=== PATIENT | female | born 1970 | race Caucasian/White ===

== ENCOUNTER → 2017-08-18 | Outpatient (CLI) | payer BC ==
--- NOTE | 2017-08-19 10:41 | MM ---
Reason for exam: screening (asymptomatic). Last mammogram was performed 2 years and 1 month ago. History: Patient is postmenopausal and has history of other cancer at age 44. Family history of breast cancer in maternal aunt at age 50. Physical Findings: A clinical breast exam by your physician is recommended on an annual basis and results should be correlated with mammographic findings. MG 3D Screening Mammo W/Cad Bilateral CC and MLO view(s) were taken. Prior study comparison: July 25, 2015, bilateral MG screening mammo w CAD. December 06, 2013, bilateral digital screening mammo w/CAD. The breast tissue is heterogeneously dense. This may lower the sensitivity of mammography. Focal asymmetry upper outer left breast 7.3cm from nipple. This finding is changed when compared with previous exams. ASSESSMENT: Incomplete: need additional imaging evaluation, BI-RAD 0 RECOMMENDATION: Special view mammogram of the left breast. If lesion persists on supplemental views, image directed ultrasound is recommended. [facility] will attempt to contact patient to return for supplemental views and ultrasound if indicated.
== END | disposition home or self-care (01) ==
LOC: RADMAMWWP 16:39
PROVIDERS: ATTEND Obstetrics & Gynecology
DX: Z12.31 Encounter for screening mammogram for malignant neoplasm of breast (principal)
CPT/HCPCS: 77063; G0202

== ENCOUNTER → 2017-09-11 | Outpatient (CLI) | payer BC ==
[2017-09-11 10:05] VITALS: RESP 16; TEMP 97.7; BMI 43.9
[2017-09-11 10:58] VITALS: BP 166/101; PULSE 80
[2017-09-11 17:37] LABS: HCT 43.2 % (34.0-46.0); MCH 30.2 pg (25.0-35.0); MCHC 32.4 g/dL (31.0-37.0); MCV 93.3 fL (80.0-100.0); Platelet Count 251 k/uL (150-450); RBC 4.63 m/uL (3.80-5.40); WBC 8.2 k/uL (3.8-10.6)
[2017-09-11 17:51] LABS: ALT 54 U/L (9-52); AST 26 U/L (14-36); Albumin 4.1 g/dL (3.5-5.0); Alkaline Phosphatase 61 U/L (38-126); Anion Gap 10 mmol/L; Blood Urea Nitrogen 15 mg/dL (7-17); Calcium 9.9 mg/dL (8.4-10.2); Carbon Dioxide 29 mmol/L (22-30); Chloride 102 mmol/L (98-107); Cholesterol 277 mg/dL (<200); Glucose 99 mg/dL (74-99); HDL Cholesterol 64 mg/dL (40-60); LDL Cholesterol,Calculated 189 mg/dL (0-99); Potassium 4.1 mmol/L (3.5-5.1); Sodium 141 mmol/L (137-145); Total Bilirubin 0.9 mg/dL (0.2-1.3); Total Protein 6.7 g/dL (6.3-8.2); Triglycerides 121 mg/dL (<150)
[2017-09-12 01:05] LABS: Iron Saturation 19.21 (12.00-45.00)
[2017-09-12 01:47] LABS: Folate, Serum 11.9 ng/mL; Vitamin D 25 Hydroxy 9.6 ng/mL (30.0-100.0)
[2017-09-12 04:05] LABS: Hemoglobin A1C 5.2 % (4.0-6.0)
--- NOTE | 2017-10-22 06:43 | P.HPBAR ---
Bariatric H&P - History & Physicial H&P Date: 09/11/17 History & Physicial: Visit/CC: bariatric consult (sleeve) Patient initial contact: Initial weight: 110.903 kg Initial weight in pounds: 244.50 Height: 5 ft 2.5 in Initial BMI: 43.9 Last weight: Current weight: 110.903 kg Current weight in pounds: 244.50 Current BMI: 43.9 [place] body weight (based on NIH guidelines): 51.029 kg Excess body weight loss: 0.0% The patient is a 47 year-old F who presents for Bariatric Assessment. DATE OF SERVICE: 09/11/2017 REASON FOR CONSULTATION: Initial bariatric evaluation. HISTORY OF PRESENT ILLNESS: Ximena Lopes is a 47-year-old female who comes in with lifelong problems with obesity. She has been undergoing medical supervised weight loss for 2 months. She is using ONEPLE pal. She has tried diet pills without any success of weight loss. She has been walking daily. In fact, she has lost 35 pounds. No family history of inflammatory bowel disease. No personal history of stomach or esophageal cancer. She has esophageal reflux disease. No family history of lupus or multiple sclerosis. No personal or family history of pulmonary embolus or DVTs. She denies any food ALLERGIES. Her gallbladder is removed. She has recently been started on medications for her high blood pressure. She has history of snoring. Otherwise she has history of lower back pain as well as foot pain. She's evaluating for the sleeve gastrectomy. At her height of 5 foot 2.5 inches, her ideal body weight 135 pounds. She comes in weighing 244 pounds. She is 109 pounds overweight. PAST MEDICAL HISTORY: 1. Morbid obesity. 2. Body mass index of 44.0. 3. Osteoarthritis of the lower back. 4. Obstructive sleep apnea. 5. Hypertensive heart disease. PAST SURGICAL HISTORY: 1. Arthroscopy. HOME MEDICATIONS: 1. Norvasc. 2. Losartan. 3. Vitamin D. ALLERGIES: 1. Sulfa. 2. Penicillins. SOCIAL HISTORY: No active tobacco use. FAMILY HISTORY: No family history of ulcerative colitis disease or Crohn's disease. Family history of morbid obesity. No lupus in the family. No reports of stomach or esophageal cancer. REVIEW OF ORGAN SYSTEMS: CONSTITUTIONAL: At her height of 5 foot 2.5 inches, her ideal body weight 135 pounds. She comes in weighing 244 pounds. She is 109 pounds overweight. HEENT: Denies any active troubles with vision or hearing. No troubles with swallowing. ENDOCRINE: No diabetes. No hypothyroidism. CARDIOVASCULAR: No reports of palpitations or heart attacks or chest pain. RESPIRATORY: Has daytime somnolence. No asthma. GI: Denies any bright red blood per rectum. No diarrhea or constipation. MUSCULOSKELETAL: Has lower back pain and joint pain. Has pain along the feet. NEURO: No headaches. No seizure disorders. PSYCH: No depression or suicidal ideation. RHEUMATOLOGIC: No lupus. No rheumatoid arthritis. HEMATOLOGIC: Denies any abnormal bleeding or bruising. No personal history of DVTs. SKIN: No rash. No skin cancer. PHYSICAL EXAM: VITAL SIGNS: Height 5 foot 2.5 inches, weight 244 pounds. BMI 44.0 Vital Signs Temp 97.7 F 09/11/17 10:15 Pulse 80 09/11/17 10:15 Resp 16 09/11/17 10:15 BP 166/101 09/11/17 10:15 Pulse Ox GENERAL: Well-developed in no acute distress. HEENT: No scleral icterus. Extraocular movements grossly intact. Hears conversational speech. No nasal drainage. NECK: Supple without lymphadenopathy. CHEST: Nonlabored respirations with equal bilateral excursions. CARDIOVASCULAR: Regular rate and regular rhythm. Distal 2+ pulses. ABDOMEN: Obese, soft, nontender, nondistended. MUSCULOSKELETAL: No clubbing, cyanosis. Gross strength 5/5 distal lower extremities. 1+ pre-tibial pitting edema. NEURO: No focal or lateralizing signs. Cranial nerves 2 through 12 grossly within normal limits. PSYCH: Appropriate affect. Alert and oriented to person, place and time. SKIN: Good skin turgor. Well perfused. ASSESSMENT: 1. Morbid obesity. 2. Body mass index of 44.0. 3. Osteoarthritis of the lower back. 4. Obstructive sleep apnea. 5. Hypertensive heart disease. 6. Dietary surveillance and counseling. PLAN: 1. Surgical options including a band, gastric bypass, sleeve gastrectomy were described in detail. Alternatives such as gastric balloon including duodenal switch were described. 2. The [place] [facility]ariat[facility] surgical collaborative data and outcomes calculator were described with surgical options. 3. Recommend a bariatric metabolic panel to evaluate for micro- including macronutrient deficiencies. 4. For history of daytime somnolence, recommend evaluation and treatment for sleep apnea. 5. Dietary surveillance and counseling was reviewed, I have asked increased protein intake to at least 60 grams daily. 6. Will need cardiac risk assessment. 7. Recommend medical risk assessment. 8. Psych assessment per insurance guidelines. 9. Follow up upon completion of upper endoscopy. 10. Recommend 12-lead EKG for hypertensive heart disease. 11. Recommend upper endoscopy. Thank you for this consultation. Laboratory Last Values WBC 8.2 k/uL (3.8-10.6) 09/11/17 17:06 RBC 4.63 m/uL (3.80-5.40) 09/11/17 17:06 Hgb 14.0 gm/dL (11.4-16.0) 09/11/17 17:06 Hct 43.2 % (34.0-46.0) 09/11/17 17:06 MCV 93.3 fL (80.0-100.0) 09/11/17 17:06 MCH 30.2 pg (25.0-35.0) 09/11/17 17:06 MCHC 32.4 g/dL (31.0-37.0) 09/11/17 17:06 RDW 14.0 % (11.5-15.5) 09/11/17 17:06 Plt Count 251 k/uL (150-450) 09/11/17 17:06 Sodium 141 mmol/L (137-145) 09/11/17 17:06 Potassium 4.1 mmol/L (3.5-5.1) 09/11/17 17:06 Chloride 102 mmol/L (98-107) 09/11/17 17:06 Carbon Dioxide 29 mmol/L (22-30) 09/11/17 17:06 Anion Gap 10 mmol/L 09/11/17 17:06 BUN 15 mg/dL (7-17) 09/11/17 17:06 Creatinine 0.70 mg/dL (0.52-1.04) 09/11/17 17:06 Est GFR (MDRD) Af Amer >60 (>60 ml/min/1.73 sqM) 09/11/17 17:06 Est GFR (MDRD) Non-Af >60 (>60 ml/min/1.73 sqM) 09/11/17 17:06 Glucose 99 mg/dL (74-99) 09/11/17 17:[address] Glu mg/dL 103 09/11/17 17:06 Hemoglobin A1c 5.2 % (4.0-6.0) 09/11/17 17:06 Calcium 9.9 mg/dL (8.4-10.2) 09/11/17 17:06 Iron 63 ug/dL (50-170) 09/11/17 17:06 TIBC 328 ug/dL (228-460) 09/11/17 17:06 Iron Saturation 19.21 (12.00-45.00) 09/11/17 17:06 Ferritin 81.3 ng/mL (10.0-291.0) 09/11/17 17:06 Total Bilirubin 0.9 mg/dL (0.2-1.3) 09/11/17 17:06 AST 26 U/L (14-36) 09/11/17 17:06 ALT 54 U/L (9-52) H 09/11/17 17:06 Alkaline Phosphatase 61 U/L (38-126) 09/11/17 17:06 Total Protein 6.7 g/dL (6.3-8.2) 09/11/17 17:06 Albumin 4.1 g/dL (3.5-5.0) 09/11/17 17:06 Triglycerides 121 mg/dL (<150) 09/11/17 17:06 Cholesterol 277 mg/dL (<200) H 09/11/17 17:06 LDL Cholesterol, Calc 189 mg/dL (0-99) H 09/11/17 17:06 HDL Cholesterol 64 mg/dL (40-60) H 09/11/17 17:06 Vitamin B1 47 ug/L (38-122) 09/11/17 17:06 Vitamin B12 220.0 pg/mL (200.0-944.0) 09/11/17 17:06 Vitamin D 25-Hydroxy 9.6 ng/mL (30.0-100.0) L 09/11/17 17:06 Folate 11.9 ng/mL 09/11/17 17:06 TSH 2.480 mIU/L (0.465-4.680) 09/11/17 17:06 EKG EKG PERFORMED 09/11/17 17:06 ALT elevated. Cholesterol elevated. LDL elevated. Vitamin D deficient. May need ultrasound of the liver elevated liver enzymes including hepatic serology. May also need anticholesterol medications. Recommend vitamin D supplement. EKG reviewed. Past Medical History Past Medical History: GERD/Reflux, Hypertension, Osteoarthritis (OA) Additional Past Medical History / Comment(s): DRY EYES, CLOGGED LEFT TEAR DUCT. History of Any Multi-Drug Resistant Organisms: None Reported Past Surgical History: Section, Tonsillectomy, Uterine Ablation Additional Past Surgical History / Comment(s): SINUS SURGERY, COLONOSCOPY, Surgery on Left eye to remove stye. Past Anesthesia/Blood Transfusion Reactions: No Reported Reaction Additional Past Anesthesia/Blood Transfusion Reaction / Comm: Difficulty waking up following cesearean Smoking Status: Never smoker - Past Family History Mother Family Medical History: Cancer, Coronary Artery Disease (CAD) Additional Family Medical History / Comment(s): at age 54 from lung cancer Father Family Medical History: Coronary Artery Disease (CAD), Memory Impairment Additional Family Medical History / Comment(s): at age 68 from Alzheimers Sister(s) Family Medical History: Cancer Additional Family Medical History / Comment(s): colon cancer (dx 2x) first dx at age 36 Brother(s) Family Medical History: Cancer Additional Family Medical History / Comment(s): at age 60 from colon cancer Surgical - Exam Vital Signs Temp Resp BP 97.7 F 16 166/111 09/11/17 09:35 09/11/17 09:35 09/11/17 09:35 Results - Labs 09/11/17 17:06 09/11/17 17:06 Bariatric Checklist Checklist: Plan: Checklist: EGD: 1. Hiatal hernia: 2. H. Pylori: HgbA1c: Vitamin D: Smoking: Never smoker Primary care physician referral: Jd Lutz Psychiatry clearance: Cardiology clearance: Sleep study: Diet journal: VTE risk score: VTE risk level: Rehab needs at discharge:
== END | disposition home or self-care (01) ==
LOC: BARWHC3 09:28
PROVIDERS: ATTEND Surgery Plastic and Reconstructive Surgery
DX: E66.01 Morbid (severe) obesity due to excess calories (principal); M47.9 Spondylosis, unspecified; G47.33 Obstructive sleep apnea (adult) (pediatric); I11.9 Hypertensive heart disease without heart failure; K21.9 Gastro-esophageal reflux disease without esophagitis; M19.90 Unspecified osteoarthritis, unspecified site; E88.81 Metabolic syndrome and other insulin resistance; E55.9 Vitamin D deficiency, unspecified; E44.0 Moderate protein-calorie malnutrition; Z71.3 Dietary counseling and surveillance; Z79.899 Other long term (current) drug therapy; Z68.41 Body mass index [BMI] 40.0-44.9, adult; Z88.0 Allergy status to penicillin; Z88.2 Allergy status to sulfonamides; Z98.890 Other specified postprocedural states
CPT/HCPCS: 36415; 80053; 80061; 82306; 82607; 82728; 82746; 83036; 83540; 83550; 84425; 84443; 85027; 93005; 99211

== ENCOUNTER → 2017-11-05 | Outpatient (CLI) | payer BC ==
[2017-11-05 16:35] VITALS: BP 140/82; PULSE 71; RESP 16; TEMP 98.3; BMI 41.4
--- NOTE | 2018-01-12 18:34 | P.PN ---
Subjective Progress Note Date: 11/05/17 DATE OF SERVICE: 11/05/2017 [place]ON[place] COMPLAINT: Bariatric evaluation HISTORY OF PRESENT ILLNESS: Ximena Lopes is a 47-year-old female who comes in with lifelong problems with obesity. [facility] August 2017. She completed an upper endoscopy. She's pending completion of psych assessment. She is undergoing medical supervised weight loss. As result of her obesity, she developed hypertension including sleep apnea. She's evaluating for the sleeve gastrectomy. At her height of 5 foot 2.5 inches, her ideal body weight 135 pounds. Her initial weight was 244 pounds. Today she comes in weighing 230 pounds. She has lost 14 pounds in 2 months. Her body mass index reduced from 44.0 to 41.4. She is 95 pounds overweight. PAST MEDICAL HISTORY: 1. Morbid obesity. 2. Body mass index of 44.0. 3. Osteoarthritis of the lower back. 4. Obstructive sleep apnea. 5. Hypertensive heart disease. PAST SURGICAL HISTORY: 1. Arthroscopy. HOME MEDICATIONS: 1. Norvasc. 2. Losartan. 3. Vitamin D. ALLERGIES: 1. Sulfa. 2. Penicillins. SOCIAL HISTORY: No active tobacco use. FAMILY HISTORY: No family history of ulcerative colitis disease or Crohn's disease. Family history of morbid obesity. No lupus in the family. No reports of stomach or esophageal cancer. REVIEW OF ORGAN SYSTEMS: CONSTITUTIONAL: At her height of 5 foot 2.5 inches, her ideal body weight 135 pounds. Her initial weight was 244 pounds. Today she comes in weighing 230 pounds. She has lost 14 pounds in 2 months. Her body mass index reduced from 44.0 to 41.4. She is 95 pounds overweight. HEENT: Denies any active troubles with vision or hearing. No troubles with swallowing. ENDOCRINE: No diabetes. No hypothyroidism. CARDIOVASCULAR: No reports of palpitations or heart attacks or chest pain. RESPIRATORY: Has daytime somnolence. No asthma. GI: Denies any bright red blood per rectum. No diarrhea or constipation. MUSCULOSKELETAL: Has lower back pain and joint pain. Has pain along the feet. NEURO: No headaches. No seizure disorders. PSYCH: No depression or suicidal ideation. RHEUMATOLOGIC: No lupus. No rheumatoid arthritis. HEMATOLOGIC: Denies any abnormal bleeding or bruising. No personal history of DVTs. SKIN: No rash. No skin cancer. PHYSICAL EXAM: VITAL SIGNS: Height 5 foot 2.5 inches, weight 230 pounds. BMI 41.4 Vital Signs Temp 98.3 F 11/05/17 18:00 Pulse 71 11/05/17 18:00 Resp 16 11/05/17 18:00 BP 140/82 11/05/17 18:00 Pulse Ox GENERAL: Well-developed in no acute distress. HEENT: No scleral icterus. Extraocular movements grossly intact. Hears conversational speech. No nasal drainage. NECK: Supple without lymphadenopathy. CHEST: Nonlabored respirations with equal bilateral excursions. CARDIOVASCULAR: Regular rate and regular rhythm. Distal 2+ pulses. ABDOMEN: Obese, soft, nontender, nondistended. MUSCULOSKELETAL: No clubbing, cyanosis. Gross strength 5/5 distal lower extremities. No pre-tibial pitting edema. NEURO: No focal or lateralizing signs. Cranial nerves 2 through 12 grossly within normal limits. PSYCH: Appropriate affect. Alert and oriented to person, place and time. SKIN: Good skin turgor. Well perfused. LABS: Previous labs reviewed ALT elevated. Cholesterol elevated. LDL elevated. Vitamin D deficient. EKG reviewed and abnormal. EGD FINDINGS: Squamocolumnar junction 37 cm from the incisors. Diaphragmatic hiatus at 37 cm. Hill grade 1 lower esophageal valve. No LA grade A erosive esophagitis. No active duodenitis. Chronic gastritis. PATHOLOGY: Final Pathologic Diagnosis STOMACH, BIOPSY: MARKED CHRONIC GASTRITIS WITH FOCAL ACTIVITY. ASSESSMENT: 1. Morbid obesity. 2. Body mass index of 44.0. 3. Osteoarthritis of the lower back. 4. Obstructive sleep apnea. 5. Hypertensive heart disease. 6. Dietary surveillance and counseling. 7. Abnormal EKG 8. Hyperlipidemia 9. Vitamin D deficiency 10. Elevated ALT 11. Dietary surveillance and counseling PLAN: 1. Recommend ultrasound of the liver for elevated liver enzymes including hepatic serology. 2. Recommend increase vitamin D supplement. 3. Her EKG is abnormal for ventricular hypertrophy. Recommend referral to cardiology for evaluation 4. Recommend dietary surveillance and counseling. Objective - Vital Signs Vital signs: Vital Signs Temp 98.3 F 11/05/17 16:28 Pulse 71 11/05/17 16:28 Resp 11/05/17 16:28 BP 140/82 11/05/17 16:28 Pulse Ox Intake & Output 11/04/17 11/05/17 11/05/17 18:59 06:59 18:59 Weight 104.383 kg
== END | disposition home or self-care (01) ==
LOC: BARWHC3 15:28
PROVIDERS: ATTEND Surgery Plastic and Reconstructive Surgery
DX: E66.01 Morbid (severe) obesity due to excess calories (principal); M19.90 Unspecified osteoarthritis, unspecified site; G47.33 Obstructive sleep apnea (adult) (pediatric); I11.9 Hypertensive heart disease without heart failure; I50.9 Heart failure, unspecified; R94.31 Abnormal electrocardiogram [ECG] [EKG]; E78.5 Hyperlipidemia, unspecified; E55.9 Vitamin D deficiency, unspecified; R74.8 Abnormal levels of other serum enzymes; Z71.3 Dietary counseling and surveillance; Z68.41 Body mass index [BMI] 40.0-44.9, adult; Z88.0 Allergy status to penicillin; Z88.2 Allergy status to sulfonamides; Z79.899 Other long term (current) drug therapy
CPT/HCPCS: 99211

== ENCOUNTER → 2018-01-27 | Outpatient (CLI) | payer BC ==
--- NOTE | 2018-01-27 18:00 | CONS ---
CONSULTATION REASON FOR CONSULTATION: Sleep apnea. This is a 47-year-old obese female patient who is being contemplated for bariatric surgery. The patient is interested in gastric sleeve. Preoperatively she was referred to me for sleep apnea evaluation. She has frequent arousals and occasionally she snores. She goes to bed around 10 p.m. and wakes up at 6 a.m. in the morning. She is refreshed and she does not fall asleep. She does not feel tired during the day. She denies having to stop breathing at nighttime and she has been told that she does not stop breathing. No insomnia. No nocturia. She denies waking up gasping for air. No grinding of the teeth. No heartburn, chest pain or palpitations at nighttime. No sleep paralysis, hallucinations or cataplexy. Weight has been up; the patient has steadily gained weight over the years. She sleeps on her side. No other complaints otherwise. PAST MEDICAL HISTORY: Obesity and hypertension. PAST SURGICAL HISTORY: 1. Sinus surgery. 2. Cervical ablation. 3. Tonsillectomy. 4. x2. DRUG ALLERGIES: SULFA and PENICILLIN. OUTPATIENT MEDICATION: Losartan and Norvasc. SOCIAL HISTORY: Nonsmoker. No history of alcoholism. No history of IV drugs. FAMILY HISTORY: Brother with CVA. Brother, father and sister with coronary artery disease. Brother and sister with colon cancer. REVIEW OF SYSTEMS: Twelve-point review of systems was done. Positive findings are all mentioned above in history of present illness. Of significance is a negative history for psychiatric history such as anxiety or depression. No claustrophobia. No sexual dysfunction. She denies falling asleep during the day. She does not take any naps during the day. No problems with attention span or memory or concentration. PHYSICAL EXAMINATION: BP is 137/84, pulse 78, respiration 16, temperature 98.0, saturation 98% on room air. Weight is 234. Height is 5 feet 2 inches. BMI is 42.7. Neck size 15-1/4 inches. GENERAL APPEARANCE: Calm, comfortable. Head is atraumatic, normocephalic. NECK: Supple. Crowding of posterior pharynx. No goiter or neck masses. Mallampati class IV. LUNGS: Clear to auscultation. HEART: Heart sounds are regular rate and rhythm. Normal S1, S2. No murmurs. ABDOMEN: Obese, soft. Organs cannot be palpated. There is no direct tenderness, rebound tenderness or guarding. EXTREMITIES: No edema. No cyanosis or clubbing. Skin is negative for any wounds or ulcerations or cellulitis. Skeletal exam is negative for injury or deformities. IMPRESSION: 1. Snoring with frequent nocturnal arousals. Questionable obstructive sleep apnea. Overall suspicion is low, as the patient does not have any major hypersomnia or sleepiness. Nevertheless, she is obese with a BMI of 42.7 and she has been contemplating gastric sleeve. 2. Hypertension. 3. Obesity with a body mass index of 42.7. PLAN: 1. Screen this patient with a home sleep study. 2. Encourage weight loss. 3. Sleep hygiene measures are good in general. 4. Will continue to follow. MMODL / IJN: [id number] /
== END | disposition home or self-care (01) ==
LOC: SLEEP 15:51
PROVIDERS: ATTEND Internal Medicine Critical Care Medicine
DX: R06.83 Snoring (principal); E66.9 Obesity, unspecified; I10 Essential (primary) hypertension; Z98.890 Other specified postprocedural states; Z68.41 Body mass index [BMI] 40.0-44.9, adult; Z88.0 Allergy status to penicillin; Z88.2 Allergy status to sulfonamides; Z79.899 Other long term (current) drug therapy
CPT/HCPCS: 99211

== ENCOUNTER → 2018-02-23 | Outpatient (CLI) | payer BC ==
--- NOTE | 2018-02-24 07:42 | MM ---
Reason for exam: follow-up at short interval from prior study. Last mammogram was performed 6 months ago. History: Patient is postmenopausal and has history of other cancer at age 44. Family history of breast cancer in maternal aunt at age 50. Physical Findings: Nurse did not find any significant physical abnormalities on exam. MG 3D Diag Mammo W/Cad LT CC and MLO view(s) were taken of the left breast. Prior study comparison: August 22, 2017, left breast MG 3d work up w/cad LT. August 18, 2017, bilateral MG 3d screening mammo w/cad. The breast tissue is heterogeneously dense. This may lower the sensitivity of mammography. The left focal asymmetry upper outer quadrant middle depth appears mammographically stable. These results were verbally communicated with the patient and result sheet given to the patient on 02/23/18. ASSESSMENT: Probably benign, BI-RAD 3 RECOMMENDATION: Return to routine screening mammogram schedule for both breasts.
== END | disposition home or self-care (01) ==
LOC: RADMAMWWP 14:46
PROVIDERS: ATTEND Family Medicine
DX: R92.8 Other abnormal and inconclusive findings on diagnostic imaging of breast (principal)
CPT/HCPCS: 77061; 77065

== ENCOUNTER → 2018-04-20 | Outpatient (CLI) | payer BC ==
[2018-04-20 16:23] VITALS: BMI 43.2
== END | disposition home or self-care (01) ==
LOC: BARWHC3 08:47
PROVIDERS: ATTEND Surgery Plastic and Reconstructive Surgery
DX: E66.01 Morbid (severe) obesity due to excess calories (principal); Z68.41 Body mass index [BMI] 40.0-44.9, adult
CPT/HCPCS: 97804

== ENCOUNTER → 2018-05-27 | Outpatient (CLI) | payer BC ==
--- NOTE | 2018-05-27 17:09 | P.PN ---
Subjective Progress Note Date: 05/27/18 DATE OF SERVICE: 05/27/2018 [place] COMPLAINT: Bariatric evaluation HISTORY OF PRESENT ILLNESS: Ximena Lopes is a 47-year-old female who comes in with lifelong problems with obesity. She reports getting spacey after not drinking and eating all day. She has developed sleep apnea and hypertensive heart disease. At her height of 5 foot 2.5 inches, her ideal body weight 135 pounds. Her initial weight was 244 pounds. Today she comes in weighing 232 pounds from 230 pounds, 7 months ago. She has lost 7 pounds in 7 months. Her body mass index reduced from 44.0 to 41.9. She is 97 pounds overweight. PAST MEDICAL HISTORY: 1. Morbid obesity. 2. Body mass index of 44.0, initial 3. Osteoarthritis of the lower back. 4. Obstructive sleep apnea. 5. Hypertensive heart disease. PAST SURGICAL HISTORY: 1. Arthroscopy. HOME MEDICATIONS: 1. Norvasc. 2. Losartan. 3. Vitamin D. ALLERGIES: 1. Sulfa. 2. Penicillins. SOCIAL HISTORY: No active tobacco use. FAMILY HISTORY: No family history of ulcerative colitis disease or Crohn's disease. Family history of morbid obesity. No lupus in the family. No reports of stomach or esophageal cancer. REVIEW OF ORGAN SYSTEMS: CONSTITUTIONAL: At her height of 5 foot 2.5 inches, her ideal body weight 135 pounds. Her initial weight was 244 pounds. Today she comes in weighing 230 pounds. She has lost 14 pounds in 2 months. Her body mass index reduced from 44.0 to 41.4. She is 95 pounds overweight. HEENT: Denies any active troubles with vision or hearing. No troubles with swallowing. ENDOCRINE: No diabetes. No hypothyroidism. CARDIOVASCULAR: No reports of palpitations or heart attacks or chest pain. RESPIRATORY: Has daytime somnolence. No asthma. GI: Denies any bright red blood per rectum. No diarrhea or constipation. MUSCULOSKELETAL: Has lower back pain and joint pain. Has pain along the feet. NEURO: No headaches. No seizure disorders. PSYCH: No depression or suicidal ideation. RHEUMATOLOGIC: No lupus. No rheumatoid arthritis. HEMATOLOGIC: Denies any abnormal bleeding or bruising. No personal history of DVTs. SKIN: No rash. No skin cancer. PHYSICAL EXAM: VITAL SIGNS: Height 5 foot 2.5 inches, weight 232 pounds. BMI 41.9 Vital Signs Temp 98.2 F 05/27/18 15:31 Pulse 84 05/27/18 15:31 Resp 15 05/27/18 15:31 BP 145/70 05/27/18 15:31 Pulse Ox GENERAL: Well-developed in no acute distress. HEENT: No scleral icterus. Extraocular movements grossly intact. Hears conversational speech. No nasal drainage. NECK: Supple without lymphadenopathy. CHEST: Nonlabored respirations with equal bilateral excursions. CARDIOVASCULAR: Regular rate and regular rhythm. Distal 2+ pulses. ABDOMEN: Obese, soft, nontender, nondistended. MUSCULOSKELETAL: No clubbing, cyanosis. Gross strength 5/5 distal lower extremities. No pre-tibial pitting edema. NEURO: No focal or lateralizing signs. Cranial nerves 2 through 12 grossly within normal limits. PSYCH: Appropriate affect. Alert and oriented to person, place and time. SKIN: Good skin turgor. Well perfused. ASSESSMENT: 1. Morbid obesity. 2. Body mass index of 44.0, initial 3. Osteoarthritis of the lower back. 4. Obstructive sleep apnea. 5. Hypertensive heart disease. 6. Dietary surveillance and counseling. 7. Abnormal EKG 8. Hyperlipidemia 9. Vitamin D deficiency 10. Elevated ALT 11. Dietary surveillance and counseling PLAN: 1. She is doing well 2. Consent obtained 3. Bariatric options between a sleeve, band and a [id number] gastric bypass were reviewed in detail. She elected for a sleeve gastrectomy. Robotic assisted approach described. 4. The [place] [facility] Data was also reviewed with benefits and risks as described. 5. An 8 page second-generation bariatric consent form was reviewed in detail including potential of bleeding, infection, leaks, adequate weight loss, nutritional deficiencies which he demonstrated understanding of the risks. 6. A 2 week high-protein low caloric 800 kcal diet described to address hepatomegaly. 7. Preoperative labs including complete metabolic panel and CBC with type and screen recommended. 8. DVT prophylaxis per [place] [facility] collaborative. 9. Antibiotic prophylaxis. 10. Inpatient hospitalization anticipated for more than 2 nights. 11. All questions and concerns were addressed with the patient.
[2018-05-28 08:49] VITALS: BP 145/70; PULSE 84; RESP 15; TEMP 98.2; BMI 41.8
== END | disposition home or self-care (01) ==
LOC: BARWHC3 15:00
PROVIDERS: ATTEND Surgery Plastic and Reconstructive Surgery
DX: E66.01 Morbid (severe) obesity due to excess calories (principal); M47.816 Spondylosis without myelopathy or radiculopathy, lumbar region; G47.33 Obstructive sleep apnea (adult) (pediatric); I11.9 Hypertensive heart disease without heart failure; E78.5 Hyperlipidemia, unspecified; R94.31 Abnormal electrocardiogram [ECG] [EKG]; E55.9 Vitamin D deficiency, unspecified; R74.0 Nonspecific elevation of levels of transaminase and lactic acid dehydrogenase [LDH]; Z68.41 Body mass index [BMI] 40.0-44.9, adult; Z71.3 Dietary counseling and surveillance; Z88.2 Allergy status to sulfonamides; Z88.0 Allergy status to penicillin; Z79.899 Other long term (current) drug therapy
CPT/HCPCS: 99211

== ENCOUNTER → 2018-05-27 | Outpatient (CLI) | payer BC ==
[2018-05-27 17:57] LABS: Basophils % (A) 1 %; Eosinophils # (A) 0.1 k/uL (0-0.7); Eosinophils % (A) 2 %; HCT 43.4 % (34.0-46.0); Lymphocytes # (A) 1.9 k/uL (1.0-4.8); Lymphocytes % (A) 28 %; MCHC 32.3 g/dL (31.0-37.0); MCV 89.5 fL (80.0-100.0); Mean Platelet Volume 7.2; Monocytes # (A) 0.4 k/uL (0-1.0); Monocytes % (A) 6 %; Neutrophils # (A) 4.2 k/uL (1.3-7.7); Neutrophils % (A) 62 %; Platelet Count 275 k/uL (150-450); RBC 4.85 m/uL (3.80-5.40); RDW 12.8 % (11.5-15.5); WBC 6.8 k/uL (3.8-10.6)
[2018-05-27 18:23] LABS: ALT 45 U/L (9-52); AST 27 U/L (14-36); Albumin 4.5 g/dL (3.5-5.0); Alkaline Phosphatase 49 U/L (38-126); Anion Gap 12 mmol/L; Blood Urea Nitrogen 15 mg/dL (7-17); Calcium 9.8 mg/dL (8.4-10.2); Carbon Dioxide 25 mmol/L (22-30); Chloride 100 mmol/L (98-107); Glucose 81 mg/dL (74-99); Potassium 4.7 mmol/L (3.5-5.1); Sodium 137 mmol/L (137-145); Total Bilirubin 0.8 mg/dL (0.2-1.3); Total Protein 7.3 g/dL (6.3-8.2)
== END | disposition home or self-care (01) ==
LOC: LABPAT 17:24
PROVIDERS: ATTEND Surgery Plastic and Reconstructive Surgery
DX: Z01.818 Encounter for other preprocedural examination (principal); Z01.812 Encounter for preprocedural laboratory examination
CPT/HCPCS: 36415; 80053; 85025; 93005

== ENCOUNTER 2018-06-01 10:08 | Inpatient (IN) | payer BC ==
[2018-05-20 11:22] VITALS: BMI 44.6
--- NOTE | 2018-05-31 19:54 | P.GSHP ---
History of Present Illness H&P Date: 06/01/18 DATE OF SERVICE: 06/01/2018 CHE COMPLAINT: Morbid obesity HISTORY OF PRESENT ILLNESS: Ximena Lopes is a 47-year-old female who comes in with lifelong problems with obesity. As result of her obesity, she developed hypertension including sleep apnea. She's evaluating for the sleeve gastrectomy. At her height of 5 foot 2.5 inches, her ideal body weight 135 pounds. Her initial weight was 244 pounds. Today she comes in weighing 243 pounds. Her body mass index is 44.6. She is 109 pounds overweight. PAST MEDICAL HISTORY: 1. Morbid obesity. 2. Body mass index of 44.0. 3. Osteoarthritis of the lower back. 4. Obstructive sleep apnea. 5. Hypertensive heart disease. PAST SURGICAL HISTORY: 1. Arthroscopy. HOME MEDICATIONS: 1. Norvasc. 2. Losartan. 3. Vitamin D. ALLERGIES: 1. Sulfa. 2. Penicillins. SOCIAL HISTORY: No active tobacco use. FAMILY HISTORY: No family history of ulcerative colitis disease or Crohn's disease. Family history of morbid obesity. No lupus in the family. No reports of stomach or esophageal cancer. REVIEW OF ORGAN SYSTEMS: CONSTITUTIONAL: At her height of 5 foot 2.5 inches, her ideal body weight 135 pounds. Her initial weight was 244 pounds. Today she comes in weighing 230 pounds. She has lost 14 pounds in 2 months. Her body mass index reduced from 44.0 to 41.4. She is 95 pounds overweight. HEENT: Denies any active troubles with vision or hearing. No troubles with swallowing. ENDOCRINE: No diabetes. No hypothyroidism. CARDIOVASCULAR: No reports of palpitations or heart attacks or chest pain. RESPIRATORY: Has daytime somnolence. No asthma. GI: Denies any bright red blood per rectum. No diarrhea or constipation. MUSCULOSKELETAL: Has lower back pain and joint pain. Has pain along the feet. NEURO: No headaches. No seizure disorders. PSYCH: No depression or suicidal ideation. RHEUMATOLOGIC: No lupus. No rheumatoid arthritis. HEMATOLOGIC: Denies any abnormal bleeding or bruising. No personal history of DVTs. SKIN: No rash. No skin cancer. PHYSICAL EXAM: VITAL SIGNS: Height 5 foot 2.5 inches, weight 243 pounds. BMI 44.6 GENERAL: Well-developed in no acute distress. HEENT: No scleral icterus. Extraocular movements grossly intact. Hears conversational speech. No nasal drainage. NECK: Supple without lymphadenopathy. CHEST: Nonlabored respirations with equal bilateral excursions. CARDIOVASCULAR: Regular rate and regular rhythm. Distal 2+ pulses. ABDOMEN: Obese, soft, nontender, nondistended. MUSCULOSKELETAL: No clubbing, cyanosis. Gross strength 5/5 distal lower extremities. No pre-tibial pitting edema. NEURO: No focal or lateralizing signs. Cranial nerves 2 through 12 grossly within normal limits. PSYCH: Appropriate affect. Alert and oriented to person, place and time. SKIN: Good skin turgor. Well perfused. ASSESSMENT: 1. Morbid obesity. 2. Body mass index of 44.6. 3. Osteoarthritis of the lower back. 4. Obstructive sleep apnea. 5. Hypertensive heart disease. 6. Dietary surveillance and counseling. 7. Abnormal EKG 8. Hyperlipidemia 9. Vitamin D deficiency 10. Elevated ALT 11. Dietary surveillance and counseling PLAN: 1. Recommend ultrasound of the liver for elevated liver enzymes including hepatic serology. 2. Recommend increase vitamin D supplement. 3. Her EKG is abnormal for ventricular hypertrophy. Recommend referral to cardiology for evaluation 4. Recommend dietary surveillance and counseling. Past Medical History Past Medical History: Cancer, Hyperlipidemia, Hypertension Additional Past Medical History / Comment(s): hx migraines, swelling cindy lower legs, hx skin cancer, recent tx for H Pylori History of Any Multi-Drug Resistant Organisms: None Reported Past Surgical History: Section, Tonsillectomy, Uterine Ablation Additional Past Surgical History / Comment(s): SINUS balloon SURGERY, COLONOSCOPY, Surgery on Left eye to remove stye. Past Anesthesia/Blood Transfusion Reactions: Previous Problems w/ Anesthesia Additional Past Anesthesia/Blood Transfusion Reaction / Comment(s): Difficulty waking up following first C-SEC Smoking Status: Never smoker - Past Family History Mother Family Medical History: Cancer Additional Family Medical History / Comment(s): at age 54 from lung cancer Father Family Medical History: Coronary Artery Disease (CAD), Memory Impairment Additional Family Medical History / Comment(s): at age 68 from Alzheimers Sister(s) Family Medical History: Cancer Additional Family Medical History / Comment(s): colon cancer (dx 2x) Brother(s) Family Medical History: Cancer Additional Family Medical History / Comment(s): at age 60 from colon cancer Medications and Allergies Home Medications Medication Instructions Recorded Confirmed Type Losartan Potassium 100 mg PO QAM 10/17/17 05/28/18 History amLODIPine [Norvasc] 10 mg PO QAM 10/17/17 05/28/18 History Furosemide [Lasix] 20 mg PO DAILY 04/20/18 05/28/18 History Allergies Allergy/AdvReac Type Severity Reaction Status Date / Time Sulfa (Sulfonamide Allergy Intermediate SULFA EYE Verified 05/28/18 08:53 Antibiotics) GTTS CAUSED SWELLING . Penicillins AdvReac Intermediate Nausea & Verified 05/28/18 08:53 Vomiting
[~2018-06-01 10:08] MED LIST: CHLORHEXIDINE GLUCONATE 15 ML CUP MUCOUS MEM ONE; DEXAMETHASONE SOD PHOSPHATE 10 MG/ML 1 ML VIAL IV ONE; ENOXAPARIN 40 MG/0.4 ML SYRINGE SQ STA; LIDOCAINE 1% 20 ML VIAL (10MG/ML) FOR IV START INTRADERMA PRN; MIDAZOLAM 2 MG/2 ML VIAL IV PRN; ONDANSETRON 4 MG/2 ML VIAL IVP ONE; PANTOPRAZOLE 40 MG/10 ML VIAL IV STA; SCOPOLAMINE 1.5MG/72HR PATCH TRANSDERM ONE; ceFAZolin IN SWFI 2 GM/20 ML SYRINGE IVP ONE
[2018-06-01] MEDS: LACTATED RINGERS 1,000 ML IV SCH (11:16)
[2018-06-01] MEDS ORDERED: GLYCOPYRROLATE 0.2 MG/ML 2 ML VIAL ONE (11:59)
[2018-06-01] MEDS ORDERED: MIDAZOLAM 2 MG/2 ML VIAL ONE (11:59)
[2018-06-01] MEDS ORDERED: VECURONIUM 10 MG VIAL IV ONE (11:59)
[2018-06-01] MEDS ORDERED: PROPOFOL 10 MG/ML 20 ML VIAL IV ONE (11:59)
[2018-06-01] MEDS ORDERED: SUCCINYLCHOLINE CHLORIDE 100 MG/5 ML SYR IV ONE (11:59)
[2018-06-01] MEDS ORDERED: LIDOCAINE 1% INJ 10MG/ML (20 ML MDV) ONE (11:59)
[2018-06-01] MEDS ORDERED: HYDROmorphone (PF) 1 MG/ML ONE (11:59)
[2018-06-01] MEDS ORDERED: fentaNYL (PF) 50 MCG/ML 2 ML AMP ONE (11:59)
[2018-06-01] MEDS ORDERED: BUPIVACAIN-EPI 0.5%-1:200,000 30 ML VIAL SQ ONE (12:39)
[2018-06-01] MEDS ORDERED: LACTATED RINGERS 1,000 ML IV ONE (12:45)
[2018-06-01] MEDS: HYDROmorphone 0.5 MG/0.5 ML SYRINGE IVP PRN ×2 (14:14→14:23)
[2018-06-01] MEDS ORDERED: HYDROcodone/APAP 15 ML SOLUTION PO PRN (14:44)
[2018-06-01] MEDS ORDERED: NALOXONE 0.4 MG/ML 1 ML VIAL IV PRN (14:44)
[2018-06-01] MEDS ORDERED: diphenhydrAMINE 50 MG/ML 1 ML VIAL IVP PRN (14:44)
[2018-06-01] MEDS: ALBUTEROL NEBULIZED 2.5 MG/3 ML INHALATION SCH ×2 (16:31→19:34)
[2018-06-01] MEDS: HYDROmorphone 1 MG/ML 1 ML SYRINGE IVP PRN ×2 (16:43→20:12)
--- NOTE | 2018-06-01 17:37 | P.OP ---
Date of Procedure: 06/01/18 Description of Procedure: SURGEON: MILI LEBRON MD PREOPERATIVE DIAGNOSES: 1. Morbid obesity due to excess calories 2. Body mass index of 44.6. 3. Osteoarthritis of the lower back. 4. Obstructive sleep apnea. 5. Hypertensive heart disease. 6. Dietary surveillance and counseling. 7. Helicobacter pylori gastritis 8. Hyperlipidemia 9. Vitamin D deficiency 10. Elevated ALT 11. Dietary surveillance and counseling POSTOPERATIVE DIAGNOSES: 1. Morbid obesity due to excess calories 2. Body mass index of 44.6. 3. Osteoarthritis of the lower back. 4. Obstructive sleep apnea. 5. Hypertensive heart disease. 6. Dietary surveillance and counseling. 7. Helicobacter pylori gastritis 8. Hyperlipidemia 9. Vitamin D deficiency 10. Elevated ALT 11. Dietary surveillance and counseling OPERATION: 1. Robotic assisted daVinci Xi laparoscopic sleeve gastrectomy with 40-Setswana bougie, multiport. 2. Intraoperative esophagogastroduodenoscopy. ANESTHESIA: Gen. local anesthetic ESTIMATED BLOOD LOSS: 20 mL SPECIMENS REMOVED: Sleeve gastrectomy COMPLICATIONS: None. INDICATIONS: Ximena Lopes is a 47-year-old female who comes in with lifelong problems with obesity. As result of her obesity, she developed hypertension including sleep apnea. She's evaluating for the sleeve gastrectomy. At her height of 5 foot 2.5 inches, her ideal body weight 135 pounds. Her initial weight was 244 pounds. Today she comes in weighing 243 pounds. Her body mass index is 44.6. She is 109 pounds overweight. She comes in for sleeve gastrectomy. All surgical options for morbid obesity had been described using the [place] bariatric surgery collaborative comorbidity resolution including complication risk score. A second-generation bariatric consent form was described in detail including the possibility of protein malnutrition, leaks, gastric stricture, venous thrombosis, gastroesophageal reflux disease, need for further surgery for which she demonstrated understanding. Benefits and risks of the procedure were described at length. Informed consent was obtained. DESCRIPTION: The patient was brought into the operating room theater. Preoperatively he had received Lovenox subcutaneously for DVT prophylaxis. Additionally he had Peridex oral solution as an oral decontaminant. After general induction, the abdomen was prepped and draped in standard sterile fashion. An Ioban draping was placed along the abdomen. No card catheter was placed A robotic da Radha Xi system was prepped and primed. The xiphoid to umbilicus measured 18 cm. At 15 cm from the xiphoid, proposed port sites were marked with indelible marker along the anterior axillary line bilaterally, mid axillary line bilaterally with each ports were marked 10 to 15 cm from each other. The metallurgical laboratory assistant port was marked along the left lateral abdominal wall. The robotic stapler port was marked for the right midclavicular line. A 5 mm 0 degrees laparoscopic trocar entry was performed along the left upper quadrant. The abdomen was insufflated to 15 mmHg pressure he tolerated well. Diagnostic laparoscopy demonstrated no injury to bowel, viscera, or mesentery. The liver surface was remarkable for moderate hepatomegaly. Peritoneal adhesions along the epigastrium was identified, however disturbed. No injury had occurred to the small bowel or viscera. Along the hiatus no evidence of large prominent hiatal hernia. A 8 mm port was placed along the right upper abdominal wall after exchanging the 5 mm port. A separate 8 mm port was placed along the left lateral abdominal wall. Please note that the ports were placed at least 20 cm away from the target anatomy. Care was taken to check each robotic arms were safely away from collision with the bed or the patient. At the epigastrium, a median sized Usha liver retractor was placed under direct visualization with the Iron Custom Clothier placed under the right shoulder of the patient. Next, 12-mm robot stapler port was placed along the right upper quadrant. The camera 8-mm port was maintained along the epigastrium, The patient was repositioned in reverse Trendelenburg position at 14-degrees after lowering the bed. The robot was docked along the left side of the patient. Using a grasper for arm 4, a veseel sealer for arm 3, including grasper for arm 1, the robotic system was docked and primed as described. Instruments were interchanged by the metallurgical laboratory assistant for stapler loads. The camera was placed at 30-degrees down. I had sat at the console. The pylorus was identified and 6 cm proximally along the greater curvature of the stomach, the short gastrics were mobilized upwards to the angle of His using a vessel sealer. Hemostasis was excellent during this portion of the procedure. Next, the upper pole of the stomach was adherent to the left taya, which was gently dissected free using atraumatic grasper. The nursing delivery stock clerk placed a 40-Setswana blunted bougie into the stomach. Robotic stapler green loads 45 mm x 2, followed by blue 45 mm x 5 loads were used to create the sleeve. Initial firing was across the antrum of the stomach towards the angle of His. The staple line was completely hemostatic and linear without corkscrewing. Hemostasis was excellent. The space from the angularis incisura of the sleeve was approximately 4 cm. I then went to the head of the bed to perform the intraoperative esophagogastroduodenoscopy leak test. The upper pole of the stomach was bathed using normal saline solution. The scope was withdrawn with careful inspection along the staple line for which no leaks were found along the entire length. Additionally, the sleeve was completely hemostatic without any encroachment along the angularis incisura. Its topology was a soft "J". No stricture was encountered upon placement of the scope. The GI tract was desufflated. The patient tolerated this portion of the procedure well. The scope was completely withdrawn. The robot was undocked. I then rescrubbed into case, whereby the irrigation fluid was aspirated from the abdominal cavity. Tisseel fibrin sealant was placed along the entire staple length. Once dried the Usha liver retractor was removed. Attention was now brought to removal of the specimen. The distal end of the sleeve gastrectomy specimen was brought out through the 12 mm port at the left upper quadrant. The specimen was gently removed en total , corresponding to 23 cm x 4 cm sleeve gastrectomy specimen. No contamination had occurred during this process. All instruments and pneumoperitoneum including irrigation fluid was removed from the abdominal cavity. The left upper quadrant fascia was closed using 0 Vicryl and Riley Serrano for the stomach extraction site. The 8 mm port site was irrigated with warm normal saline solution and diluted hydron peroxide. The final incisions were closed using subcuticular interrupted suture of 4-0 Monocryl. Dermabond was applied to the skin once the skin had been cleansed. OptiFoam dressing was placed along the stomach extraction site. At the end of the procedure, needle, sponge, and instrument count was verified correct by the ophthalmic surgical assistant. The patient was taken to the postanesthesia care unit in stable condition. She had tolerated the procedure well. Intraoperative films and findings were reviewed with the patient's family. FINDINGS: 1. Negative intraoperative esophagogastrojejunoscopy leak test. 2. No hepatomegaly or hiatus hernia. 3. Total of 7 staplers used including 2- 45 mm green robot elile and 5 - 45 mm blue robot loads used to create the gastric sleeve. 4. Xiphoid to umbilicus of 18 cm. 5. Trochars placed 20 cm from xiphoid process 6. Sleeve gastrectomy 23 x 4 cm 7. Console time 39 minutes
[2018-06-01] MEDS: SIMETHICONE 40 MG/0.6 ML DROPS 2,000 MG/30 ML BOTTLE PO SCH ×2 (19:54→23:21)
[2018-06-01] MEDS: HYOSCYAMINE ORAL DROPS 1.875 MG/15 ML BOTTLE PO SCH ×2 (19:54→23:21)
[2018-06-01] MEDS: ONDANSETRON 4 MG/2 ML VIAL IVP SCH ×2 (19:54→23:22)
[2018-06-01] MEDS: ceFAZolin IN SWFI 2 GM/20 ML SYRINGE IVP SCH (20:11)
[2018-06-01] MEDS: 0.9% NACL WITH KCL 20 MEQ/L 1,000 ML IV SCH ×2 (20:13→23:53)
[2018-06-02] MEDS: HYDROmorphone 1 MG/ML 1 ML SYRINGE IVP PRN ×2 (03:30→07:22)
[2018-06-02] MEDS: ceFAZolin IN SWFI 2 GM/20 ML SYRINGE IVP SCH (03:31)
[2018-06-02] MEDS: LACTATED RINGERS 1,000 ML IV SCH (05:24)
[2018-06-02] MEDS: HYOSCYAMINE ORAL DROPS 1.875 MG/15 ML BOTTLE PO SCH ×2 (05:41→11:35)
[2018-06-02] MEDS: SIMETHICONE 40 MG/0.6 ML DROPS 2,000 MG/30 ML BOTTLE PO SCH ×2 (05:41→11:35)
[2018-06-02] MEDS: ONDANSETRON 4 MG/2 ML VIAL IVP SCH ×2 (05:41→11:35)
[2018-06-02] MEDS: 0.9% NACL WITH KCL 20 MEQ/L 1,000 ML IV SCH ×2 (06:19→12:57)
[2018-06-02] MEDS: ALBUTEROL NEBULIZED 2.5 MG/3 ML INHALATION SCH ×2 (07:10→11:17)
[2018-06-02 07:48] VITALS: BP 133/74; RESP 18; TEMP 98.4
[2018-06-02] MEDS ORDERED: 0.9% NACL WITH KCL 20 MEQ/L 1,000 ML IV SCH (08:00)
[2018-06-02 08:54] LABS: Basophils % (A) 0 %; Eosinophils % (A) 0 %; HCT 38.9 % (34.0-46.0); Lymphocytes # (A) 1.4 k/uL (1.0-4.8); Lymphocytes % (A) 14 %; MCH 30.1 pg (25.0-35.0); MCHC 33.5 g/dL (31.0-37.0); MCV 89.8 fL (80.0-100.0); Mean Platelet Volume 8.2; Monocytes # (A) 0.8 k/uL (0-1.0); Monocytes % (A) 7 %; Neutrophils # (A) 7.9 k/uL (1.3-7.7); Neutrophils % (A) 76 %; Platelet Count 269 k/uL (150-450); RBC 4.34 m/uL (3.80-5.40); WBC 10.4 k/uL (3.8-10.6)
--- NOTE | 2018-06-02 08:57 | FL ---
EXAMINATION TYPE: FL UGI DATE OF EXAM: 06/02/2018 LIMITED UGI: CLINICAL HISTORY: Morbid Obesity, gastric sleeve surgery yesterday. TECHNIQUE: Limited esophagram is performed utilizing 10 oz of Isovue-370. A total of 51 seconds of fluoroscopic time was utilized during procedure. 13 spot images are saved. COMPARISON: None. FINDINGS: The patient swallowed contrast without difficulty or delay. Esophageal peristalsis and mo tility are satisfactory. Some reflux is identified at level of distal esophagus. There is satisfacto ry flow of contrast along the diaphragmatic hiatus into proximal stomach and proximal anastomosis int o gastric sleeve. There is good flow from distal anastomosis into pylorus and duodenal sweep. Patient remains asymptomatic. There is no evidence of contrast extravasation to suggest leak. IMPRESSION: No evidence of leak or significant obstruction status post recent gastric sleeve surgery yesterday.
[2018-06-02] MEDS ORDERED: PANTOPRAZOLE 40 MG/10 ML VIAL IV SCH (09:00)
[2018-06-02] MEDS ORDERED: ENOXAPARIN 40 MG/0.4 ML SYRINGE SQ SCH (09:00)
--- NOTE | 2018-06-02 09:47 | P.PN ---
<Tiffanie Zaldivar - Last Filed: 06/02/18 09:33> Subjective Progress Note Date: 06/02/18 47-year-old female just returned from having follow-through upper GI review the report reviewed showed no evidence of a leak or significant obstruction status post recent gastric sleeve done yesterday white count 10.4 this morning hemoglobin 13 variable heart rates 110-80 patient states has been up to the bathroom pain medication effective for pain control sitting up in bed appears in no acute distress. Surgical dressing site dry. Abdomen soft surgical tenderness appropriate Done on June 01 Robotic assisted daVinci Xi laparoscopic sleeve gastrectomy with 40-Honduran bougie, multiport. Intraoperative esophagogastroduodenoscopy. Objective - Vital Signs Vital signs: Vital Signs Temp 98.4 F 06/02/18 07:05 Pulse 125 H 06/02/18 07:46 Resp 18 06/02/18 07:05 BP 133/74 06/02/18 07:05 Pulse Ox 95 06/02/18 07:46 Intake & Output 06/01/18 06/02/18 06/02/18 18:59 06:59 18:59 Intake Total 1700 1800 Output Total 20 Balance 1680 1800 Weight 110.677 kg Intake: IV 1700 Intake, IV Titration 1800 Amount 0.9% NaCl with KCl 20 Meq 1800 /l 1,000 ml @ 150 mls/hr IV .Q6H40M CELESTINE Rx#: [id number] Output: Estimated Blood Loss 20 Other: Voiding Method Toilet # Voids 3 - Exam Physical exam Pleasant 47-year-old female sitting up in bed appears in no acute distress Lungs adequate air movement bilaterally on room air Heart S1-S2 audible regular heart rate 60s to110 Abdomen surgical dressing site dry soft not distended. Hypoactive bowel tones reports no nausea vomiting belching not passing gas no stool no difficulty in urinating Extremities no edema - Labs CBC & Chem 7: 06/02/18 07:32 Labs: Abnormal Lab Results - Last 24 Hours (Table) 06/02/18 Range/Units 07:32 Neutrophils # 7.9 H (1.3-7.7) k/uL Assessment and Plan Assessment: Impression Morbid obesity due to excess calories BMI 44 Obstructive sleep apnea Hypertensive heart disease Vitamin D deficiency Osteoarthritis lower back Hyperlipidemia Helicobacter pylori gastritis Postop June 01 Robotic assisted daVinci Xi laparoscopic sleeve gastrectomy with 40-Honduran bougie, multiport. Intraoperative esophagogastroduodenoscopy. Plan Continue postop bariatric surgical care Pain control PT OT Follow-up on pending labs Bariatric clear liquid diet Dietitian for nutritional support DVT and GI prophylaxis Lovenox and protonix The above impression and plan of care have been discussed and directed by signing physician. Tiffanie Zaldivar nurse practitioner acting as scribe for signing physician. <Shayy Wilson N - Last Filed: 06/02/18 13:37> Objective - Vital Signs Vital signs: Vital Signs Temp 98.4 F 06/02/18 07:05 Pulse 72 06/02/18 11:26 Resp 18 06/02/18 07:05 BP 133/74 06/02/18 07:05 Pulse Ox 95 06/02/18 07:46 Intake & Output 06/01/18 06/02/18 06/02/18 18:59 06:59 18:59 Intake Total 1700 1800 Output Total 20 Balance 1680 1800 Weight 110.677 kg 110.677 kg Intake: IV 1700 Intake, IV Titration 1800 Amount 0.9% NaCl with KCl 20 Meq 1800 /l 1,000 ml @ 150 mls/hr IV .Q6H40M CELESTINE Rx#: [id number] Output: Estimated Blood Loss 20 Other: Voiding Method Toilet # Voids 3 - Labs CBC & Chem 7: 06/02/18 07:32 06/02/18 07:32 Labs: Abnormal Lab Results - Last 24 Hours (Table) 06/02/18 06/02/18 Range/Units 07:32 07:32 Neutrophils # 7.9 H (1.3-7.7) k/uL Chloride 108 H (98-107) mmol/L Carbon Dioxide 21 L (22-30) mmol/L Phosphorus 2.4 L (2.5-4.5) mg/dL Assessment and Plan Plan: Heart rate within normal limits without persistent tachycardia. May be discharged home with follow up in 3 days.
[2018-06-02 11:27] VITALS: PULSE 72
[2018-06-02 13:35] LABS: Anion Gap 11 mmol/L; Blood Urea Nitrogen 8 mg/dL (7-17); Calcium 8.7 mg/dL (8.4-10.2); Carbon Dioxide 21 mmol/L (22-30); Chloride 108 mmol/L (98-107); Magnesium 1.8 mg/dL (1.6-2.3); Phosphorus 2.4 mg/dL (2.5-4.5); Potassium 4.4 mmol/L (3.5-5.1); Sodium 140 mmol/L (137-145)
--- NOTE | 2018-06-02 13:37 | P.DS ---
<Tiffanie Zaldivar - Last Filed: 06/02/18 14:19> Providers Date of admission: 06/01/18 10:08 Attending physician: Shayy Wilson Primary care physician: [facility] Hospital Course: 47-year-old female who has had a lifelong problem with obesity. As a result of her obesity developed hypertension. Also sleep apnea. Patient presented to undergo Robotic assisted daVinci Xi laparoscopic sleeve gastrectomy done on June 01. At 5 feet to ideal body weight 135 pounds. Initial weight was 244. Patient's weight on admission was 243. BMI 44.6. Patient's 109 pounds overweight. At the time of discharge patient was up ambulatory on the unit pain medication effective for pain control no dizziness or lightheadedness sats on room air greater than 95% surgical incision sites were dry patient was felt to be appropriate to be discharged Impression discharge diagnosis Morbid obesity BMI 44.6 due to excess calories Osteoarthritis of the lower back Obstructive sleep apnea Vitamin D deficiency Helicobacter pylori gastritis Postop June 01 Robotic assisted daVinci Xi laparoscopic sleeve gastrectomy with 40-Israeli bougie, multiport. Intraoperative esophagogastroduodenoscopy. The above impression and plan of care have been discussed and directed by signing physician. Tiffanie Zaldivar nurse practitioner acting as scribe for signing physician. Patient Condition at Discharge: Stable Plan - Discharge Summary New Discharge Prescriptions: New HYDROcodone/APAP [[place] Elixir 7.5-325Mg/15Ml] 15 ml PO Q4HR PRN #280 solution PRN Reason: Severe Pain Omeprazole 40 mg PO DAILY #90 capsule. Discontinued amLODIPine [Norvasc] 10 mg PO QAM Losartan Potassium 100 mg PO QAM No Action Furosemide [Lasix] 20 mg PO DAILY Discharge Medication List Furosemide [Lasix] 20 mg PO DAILY 04/20/18 [History] HYDROcodone/APAP [[place] Elixir 7.5-325Mg/15Ml] 15 ml PO Q4HR PRN #280 solution 06/02/18 [Rx] Omeprazole 40 mg PO DAILY #90 capsule. 06/02/18 [Rx] Follow up Appointment(s)/Referral(s): [facility],. [NON-STAFF] - 06/05/18 10:00 am Patient Instructions/Handouts: Nutrition after Bariatric Surgery (DC), Laparoscopic Sleeve Gastrectomy (DC) Activity/Diet/Wound Care/Special Instructions: NO lifting over 4 pounds in 4 weeks. No shower. No bathtub soaks. Dressings to be removed by your doctor in the office. EAT 75 G PROTEIN DAILY FOR OPTIMAL RECOVERY. Discharge Disposition: HOME SELF-CARE <SteveShayy stauffer Gavin - Last Filed: 06/03/18 10:24> Providers Expected date of discharge: 06/02/18 - Discharge Diagnosis(es) (1) Morbid obesity due to excess calories Status: Acute (2) BMI 40.0-44.9, adult Status: Acute (3) Sleep apnea Status: Acute (4) Hypertensive heart disease Status: Acute (5) Helicobacter positive gastritis Status: Acute (6) S/P laparoscopic sleeve gastrectomy Status: Acute Hospital Course: POSTOPERATIVE DIAGNOSES: 1. Morbid obesity due to excess calories 2. Body mass index of 44.6. 3. Osteoarthritis of the lower back. 4. Obstructive sleep apnea. 5. Hypertensive heart disease. 6. Dietary surveillance and counseling. 7. Helicobacter pylori gastritis 8. Hyperlipidemia 9. Vitamin D deficiency 10. Elevated ALT 11. Dietary surveillance and counseling Pertinent Studies: Esophagram negative for leaks or obstruction Procedures: OPERATION: 1. Robotic assisted daVinci Xi laparoscopic sleeve gastrectomy with 40-Israeli bougie, multiport. 2. Intraoperative esophagogastroduodenoscopy. ANESTHESIA: Gen. local anesthetic ESTIMATED BLOOD LOSS: 20 mL SPECIMENS REMOVED: Sleeve gastrectomy COMPLICATIONS: None. I Plan - Discharge Summary Discharge Rx Participant: Yes
[2018-06-03] MEDS ORDERED: BISACODYL 5 MG TABLET.DR PO PRN (08:00)
== END 2018-06-02 15:00 | disposition home or self-care (01) | DRG 621 ==
LOC: 2ORMAIN 10:08 → 3SUR 16:02
PROVIDERS: ADMIT Surgery Plastic and Reconstructive Surgery; ATTEND Surgery Plastic and Reconstructive Surgery
PROC: 8E0W4CZ Robotic Assisted Procedure of Trunk Region, Percutaneous Endoscopic Approach (ICD-10-PCS; 2018-06-01)
PROC: 0DB64Z3 Excision of Stomach, Percutaneous Endoscopic Approach, Vertical (ICD-10-PCS; principal; 2018-06-01 12:15)
PROC: 0DJ08ZZ Inspection of Upper Intestinal Tract, Via Natural or Artificial Opening Endoscopic (ICD-10-PCS; principal; 2018-06-01 12:15)
DX: E66.01 Morbid (severe) obesity due to excess calories (principal); R16.0 Hepatomegaly, not elsewhere classified; I11.9 Hypertensive heart disease without heart failure; Z68.41 Body mass index [BMI] 40.0-44.9, adult; E55.9 Vitamin D deficiency, unspecified; E78.5 Hyperlipidemia, unspecified; G47.33 Obstructive sleep apnea (adult) (pediatric); M47.9 Spondylosis, unspecified; G43.909 Migraine, unspecified, not intractable, without status migrainosus; R74.0 Nonspecific elevation of levels of transaminase and lactic acid dehydrogenase [LDH]; R94.31 Abnormal electrocardiogram [ECG] [EKG]; K29.70 Gastritis, unspecified, without bleeding; B96.81 Helicobacter pylori [H. pylori] as the cause of diseases classified elsewhere; M21.612 Bunion of left foot; F41.9 Anxiety disorder, unspecified; J32.9 Chronic sinusitis, unspecified; Z85.828 Personal history of other malignant neoplasm of skin; Z79.899 Other long term (current) drug therapy; Z88.0 Allergy status to penicillin; Z88.2 Allergy status to sulfonamides; Z71.3 Dietary counseling and surveillance; Z82.49 Family history of ischemic heart disease and other diseases of the circulatory system; Z82.0 Family history of epilepsy and other diseases of the nervous system; Z80.1 Family history of malignant neoplasm of trachea, bronchus and lung; Z80.0 Family history of malignant neoplasm of digestive organs
CPT/HCPCS: 74240; 80051; 81025; 82310; 82565; 83735; 84100; 84520; 85025; 86850; 86900; 86901; 88307; 94640; 94760; 94762

== ENCOUNTER → 2018-06-05 | Outpatient (CLI) | payer BC ==
[2018-06-05 10:28] VITALS: BP 138/65; PULSE 61; TEMP 98.1; BMI 41.2
--- NOTE | 2018-06-05 11:18 | P.PN ---
Subjective Progress Note Date: 06/05/18 HPI: Patient reports mild gastroesophageal reflux disease and minimal epigastric discomfort. Otherwise no fevers or chills. She is tolerating liquids. She is ambulating. ABDOMEN: No infection. Dressing discontinued PLAN: 1. Reinforced avoiding big gulps with drinking 2. Omeprazole advised. 3. Follow-up in 1 week Objective - Vital Signs Vital signs: Vital Signs Temp 98.1 F 06/05/18 10:25 Pulse 61 06/05/18 10:25 Resp BP 138/65 06/05/18 10:25 Pulse Ox Intake & Output 06/04/18 06/05/18 06/05/18 18:59 06:59 18:59 Weight 103.873 kg
== END | disposition home or self-care (01) ==
LOC: BARWHC3 09:55
PROVIDERS: ATTEND Surgery Plastic and Reconstructive Surgery
DX: K21.9 Gastro-esophageal reflux disease without esophagitis (principal); Z79.899 Other long term (current) drug therapy
CPT/HCPCS: 99211

== ENCOUNTER → 2018-06-10 | Outpatient (CLI) | payer BC ==
[2018-06-10 14:56] VITALS: BP 147/76; PULSE 85; RESP 16; TEMP 99.8; BMI 39.2
--- NOTE | 2018-06-10 15:57 | P.PN ---
Subjective Progress Note Date: 06/10/18 HPI: No GERD. She reports acute left upper abdominal pain after a quick turn of the abdomen. She reports thick discharge on her tongue over 3 days. Has BM ABDOMEN: Dimpling along the left upper quadrant. PLAN: 1. Nystatin solution for 2 weeks. 2. Lab work next visit, 1 month post op 3. Wound care 4. Abdominal binder. Objective - Vital Signs Vital signs: Vital Signs Temp 99.8 F H 06/10/18 14:51 Pulse 85 06/10/18 14:51 Resp 16 06/10/18 14:51 BP 147/76 06/10/18 14:51 Pulse Ox Intake & Output 06/09/18 06/10/18 06/10/18 18:59 06:59 18:59 Weight 98.883 kg
== END | disposition home or self-care (01) ==
LOC: BARWHC3 13:59
PROVIDERS: ATTEND Surgery Plastic and Reconstructive Surgery
DX: R10.12 Left upper quadrant pain (principal); E66.01 Morbid (severe) obesity due to excess calories; Z71.3 Dietary counseling and surveillance; Z68.39 Body mass index [BMI] 39.0-39.9, adult
CPT/HCPCS: 97802; 99211

== ENCOUNTER → 2018-07-01 | Outpatient (CLI) | payer BC ==
[2018-07-01 14:54] VITALS: BP 146/83; PULSE 84; RESP 16; TEMP 98.2; BMI 37.3
--- NOTE | 2018-07-01 14:55 | P.PN ---
Subjective Progress Note Date: 07/01/18 HPI: She reports constant epigastric pain. ABDOMEN: No infection PLAN: 1. She has lost 23 pounds. 2. She has been having constipation. 3. Recommend increase fluid intake.
[2018-07-01 16:20] LABS: HCT 44.8 % (34.0-46.0); HGB 15.2 gm/dL (11.4-16.0); MCH 29.3 pg (25.0-35.0); MCHC 33.9 g/dL (31.0-37.0); MCV 86.4 fL (80.0-100.0); Mean Platelet Volume 8.2; Platelet Count 232 k/uL (150-450); RBC 5.18 m/uL (3.80-5.40); RDW 13.2 % (11.5-15.5); WBC 6.4 k/uL (3.8-10.6)
[2018-07-01 16:26] LABS: INR 1.1 (<1.2); Partial Thromboplastin Time 23.6 sec (22.0-30.0); Prothrombin Time 10.8 sec (9.0-12.0)
[2018-07-01 16:38] LABS: ALT 37 U/L (9-52); AST 29 U/L (14-36); Albumin 4.6 g/dL (3.5-5.0); Alkaline Phosphatase 46 U/L (38-126); Anion Gap 16 mmol/L; Blood Urea Nitrogen 10 mg/dL (7-17); Calcium 10.1 mg/dL (8.4-10.2); Carbon Dioxide 27 mmol/L (22-30); Chloride 96 mmol/L (98-107); Cholesterol 211 mg/dL (<200); Glucose 87 mg/dL (74-99); HDL Cholesterol 45 mg/dL (40-60); LDL Cholesterol,Calculated 133 mg/dL (0-99); Magnesium 1.9 mg/dL (1.6-2.3); Phosphorus 3.3 mg/dL (2.5-4.5); Potassium 3.5 mmol/L (3.5-5.1); Sodium 139 mmol/L (137-145); Total Bilirubin 0.8 mg/dL (0.2-1.3); Total Protein 7.3 g/dL (6.3-8.2); Triglycerides 164 mg/dL (<150)
[2018-07-02 03:45] LABS: Iron Saturation 12.5 (12.00-45.00)
[2018-07-02 03:55] LABS: Vitamin D 25 Hydroxy 37.5 ng/mL (30.0-100.0)
[2018-07-02 03:56] LABS: Folate, Serum 8.4 ng/mL
[2018-07-02 05:23] LABS: Hemoglobin A1C 5.1 % (4.0-6.0)
[2018-07-02 14:26] LABS: Zinc, Serum 122 ug/dL (60-130)
[2018-07-03 08:02] LABS: Vitamin A 24 ug/dL (38-106)
[2018-07-03 13:40] LABS: Vitamin B1 40 ug/L (38-122)
== END | disposition home or self-care (01) ==
LOC: BARWHC3 13:15
PROVIDERS: ATTEND Surgery Plastic and Reconstructive Surgery
DX: R10.13 Epigastric pain (principal); E66.01 Morbid (severe) obesity due to excess calories; E21.1 Secondary hyperparathyroidism, not elsewhere classified; E89.1 Postprocedural hypoinsulinemia; D50.9 Iron deficiency anemia, unspecified; K90.9 Intestinal malabsorption, unspecified; E55.9 Vitamin D deficiency, unspecified; K76.9 Liver disease, unspecified; N19 Unspecified kidney failure; K50.90 Crohn's disease, unspecified, without complications; Z68.37 Body mass index [BMI] 37.0-37.9, adult
CPT/HCPCS: 36415; 80053; 80061; 82306; 82525; 82607; 82728; 82746; 83036; 83540; 83550; 83735; 83970; 84100; 84134; 84255; 84425; 84443; 84590; 84630; 85027; 85610; 85730; 97803; 99211

== ENCOUNTER → 2018-07-10 | Outpatient (CLI) | payer BC ==
[~2018-07-10] MED LIST changes: -CHLORHEXIDINE GLUCONATE 15 ML CUP MUCOUS MEM ONE; -DEXAMETHASONE SOD PHOSPHATE 10 MG/ML 1 ML VIAL IV ONE; -ENOXAPARIN 40 MG/0.4 ML SYRINGE SQ STA; -LIDOCAINE 1% 20 ML VIAL (10MG/ML) FOR IV START INTRADERMA PRN; -MIDAZOLAM 2 MG/2 ML VIAL IV PRN; -ONDANSETRON 4 MG/2 ML VIAL IVP ONE; -PANTOPRAZOLE 40 MG/10 ML VIAL IV STA; -SCOPOLAMINE 1.5MG/72HR PATCH TRANSDERM ONE; +SODIUM CHLORIDE 0.9% 1,000 ML IV ONE; -ceFAZolin IN SWFI 2 GM/20 ML SYRINGE IVP ONE
[2018-07-10 12:29] VITALS: BP 141/75; PULSE 73; RESP 18; TEMP 98
[2018-07-10] MEDS: SODIUM CHLORIDE 0.9% 1,000 ML IV SCH ×2 (12:29→13:36)
== END | disposition home or self-care (01) ==
LOC: PROCWHC3 11:28
PROVIDERS: ATTEND Surgery Plastic and Reconstructive Surgery
DX: E86.0 Dehydration (principal); Z88.0 Allergy status to penicillin; Z88.2 Allergy status to sulfonamides
CPT/HCPCS: 96360; 96361

== ENCOUNTER → 2018-09-09 | Outpatient (CLI) | payer BC ==
--- NOTE | 2018-09-09 12:59 | MM ---
Reason for exam: screening (asymptomatic). Last mammogram was performed 6 months ago. History: Patient is postmenopausal and has history of other cancer at age 44. Family history of breast cancer in maternal aunt at age 50. Physical Findings: A clinical breast exam by your physician is recommended on an annual basis and results should be correlated with mammographic findings. MG 3D Screening Mammo W/Cad Bilateral CC and MLO view(s) were taken. Prior study comparison: February 23, 2018, left breast MG 3d diag mammo w/cad LT. August 22, 2017, left breast MG 3d work up w/cad LT. The breast tissue is heterogeneously dense. This may lower the sensitivity of mammography. There are benign appearing round calcifications bilaterally. There is no discrete abnormality. ASSESSMENT: Benign, BI-RAD 2 RECOMMENDATION: Routine screening mammogram of both breasts in 1 year.
[2018-09-10 09:10] VITALS: BMI 32.9
== END | disposition home or self-care (01) ==
LOC: RADMAMWWP 06:49
PROVIDERS: ATTEND Obstetrics & Gynecology
DX: Z12.31 Encounter for screening mammogram for malignant neoplasm of breast (principal); Z80.3 Family history of malignant neoplasm of breast
CPT/HCPCS: 77063; 77067

== ENCOUNTER → 2018-09-09 | Outpatient (CLI) | payer BC ==
--- NOTE | 2018-09-09 14:54 | P.PN ---
Subjective Progress Note Date: 09/09/18 HPI: She has lost 60 pounds from 244 to 183 pounds. She is doing well. No abdominal pain. She has no gurggling PLAN: 1. No GERD. She has gurggling. 2. Needs labs. 3. She is 3 months out.
[2018-09-09 15:04] VITALS: BP 133/85; PULSE 66; RESP 16; TEMP 97.8; BMI 32.9
== END | disposition home or self-care (01) ==
LOC: BARWHC3 13:57
PROVIDERS: ATTEND Surgery Plastic and Reconstructive Surgery
DX: Z71.3 Dietary counseling and surveillance (principal); E66.01 Morbid (severe) obesity due to excess calories; Z68.32 Body mass index [BMI] 32.0-32.9, adult
CPT/HCPCS: 97803; 99211

== ENCOUNTER → 2018-09-18 | Outpatient (CLI) | payer BC ==
[2018-09-18 13:43] LABS: HCT 44.3 % (34.0-46.0); HGB 14.8 gm/dL (11.4-16.0); MCH 29.5 pg (25.0-35.0); MCHC 33.4 g/dL (31.0-37.0); MCV 88.5 fL (80.0-100.0); Mean Platelet Volume 7.9; Platelet Count 200 k/uL (150-450); RDW 13.5 % (11.5-15.5); WBC 4.7 k/uL (3.8-10.6)
[2018-09-18 13:49] LABS: Partial Thromboplastin Time 25.4 sec (22.0-30.0)
[2018-09-18 14:38] LABS: ALT 30 U/L (9-52); AST 20 U/L (14-36); Albumin 3.8 g/dL (3.5-5.0); Alkaline Phosphatase 44 U/L (38-126); Anion Gap 11 mmol/L; Blood Urea Nitrogen 13 mg/dL (7-17); Calcium 9.5 mg/dL (8.4-10.2); Carbon Dioxide 29 mmol/L (22-30); Chloride 99 mmol/L (98-107); Cholesterol 189 mg/dL (<200); Glucose 136 mg/dL (74-99); HDL Cholesterol 53 mg/dL (40-60); LDL Cholesterol,Calculated 113 mg/dL (0-99); Magnesium 1.9 mg/dL (1.6-2.3); Phosphorus 3.1 mg/dL (2.5-4.5); Potassium 3.6 mmol/L (3.5-5.1); Sodium 139 mmol/L (137-145); Total Bilirubin 0.8 mg/dL (0.2-1.3); Total Protein 6.3 g/dL (6.3-8.2); Triglycerides 116 mg/dL (<150)
[2018-09-18 18:57] LABS: Folate, Serum 4.9 ng/mL
[2018-09-18 19:03] LABS: Iron Saturation 23.08 (12.00-45.00)
[2018-09-18 19:07] LABS: Parathyroid Hormone Intact 49.4 pg/mL (14.0-72.0)
[2018-09-19 03:54] LABS: Hemoglobin A1C 4.7 % (4.0-6.0)
== END ==
LOC: LABPAT 12:56
PROVIDERS: ATTEND Surgery Plastic and Reconstructive Surgery
DX: Z48.815 Encounter for surgical aftercare following surgery on the digestive system (principal); E66.01 Morbid (severe) obesity due to excess calories; E21.1 Secondary hyperparathyroidism, not elsewhere classified; E89.1 Postprocedural hypoinsulinemia; D50.9 Iron deficiency anemia, unspecified; K90.9 Intestinal malabsorption, unspecified; E44.0 Moderate protein-calorie malnutrition; E55.9 Vitamin D deficiency, unspecified; K74.1 Hepatic sclerosis; N19 Unspecified kidney failure; K50.90 Crohn's disease, unspecified, without complications; Z98.84 Bariatric surgery status
CPT/HCPCS: 36415; 80053; 80061; 82306; 82525; 82607; 82728; 82746; 83036; 83540; 83550; 83735; 83970; 84100; 84134; 84255; 84425; 84443; 84590; 84630; 85027; 85610; 85730

== ENCOUNTER → 2018-12-23 | Outpatient (CLI) | payer BC ==
--- NOTE | 2018-12-23 17:21 | P.PN ---
Subjective Progress Note Date: 12/23/18 DATE OF SERVICE: 12/23/2018 CHEIF COMPLAINT: Status post sleeve gastrectomy HISTORY OF PRESENT ILLNESS: Ximena Lopes is a 48-year-old female status post sleeve gastectomy 06/01/18. She is 7 months out. She has no heartburn. She reports new gurgling. She has lost moderate weight in 6 months. She reports churning of her stomach. She reports improvement of her symptoms with food. No reports of shoulder pain. At her height of 5 foot 2.5 inches, her ideal body weight 135 pounds. Her initial weight was 244 pounds. Today she comes in 160 pounds from 183 pounds, 4 months ago. She has lost 23 pounds in 4 months. Her body mass index is reduced from 44.0 to 28.8. She has lost 84 pounds lifetime. Percent excess weight loss is 77 %. PAST MEDICAL HISTORY: 1. Morbid obesity. 2. Body mass index of 44.0, initial 3. Osteoarthritis of the lower back. 4. Obstructive sleep apnea. 5. Hypertensive heart disease. PAST SURGICAL HISTORY: 1. Arthroscopy. HOME MEDICATIONS: 1. Norvasc. 2. Losartan. 3. Vitamin D. ALLERGIES: 1. Sulfa. 2. Penicillins. SOCIAL HISTORY: No active tobacco use. FAMILY HISTORY: No family history of ulcerative colitis disease or Crohn's disease. Family history of morbid obesity. No lupus in the family. No reports of stomach or esophageal cancer. REVIEW OF ORGAN SYSTEMS: CONSTITUTIONAL: At her height of 5 foot 2.5 inches, her ideal body weight 135 pounds. Her initial weight was 244 pounds. Her body mass index reduced from 44.0. HEENT: Denies any active troubles with vision or hearing. No troubles with swallowing. ENDOCRINE: No diabetes. No hypothyroidism. CARDIOVASCULAR: No reports of palpitations or heart attacks or chest pain. RESPIRATORY: Has daytime somnolence. No asthma. GI: Denies any bright red blood per rectum. No diarrhea or constipation. MUSCULOSKELETAL: Has lower back pain and joint pain. Has pain along the feet. NEURO: No headaches. No seizure disorders. PSYCH: No depression or suicidal ideation. RHEUMATOLOGIC: No lupus. No rheumatoid arthritis. HEMATOLOGIC: Denies any abnormal bleeding or bruising. No personal history of DVTs. SKIN: No rash. No skin cancer. PHYSICAL EXAM: VITAL SIGNS: Height 5 foot 2.5 inches, weight 160 pounds. BMI 28.8. Vital Signs Temp 97.7 F 12/23/18 17:23 Pulse 58 L 12/23/18 17:23 Resp BP 145/98 12/23/18 17:23 Pulse Ox GENERAL: Well-developed in no acute distress. HEENT: No scleral icterus. Extraocular movements grossly intact. Hears conversational speech. No nasal drainage. NECK: Supple without lymphadenopathy. CHEST: Nonlabored respirations with equal bilateral excursions. CARDIOVASCULAR: Regular rate and regular rhythm. Distal 2+ pulses. ABDOMEN: Nontender. Soft, nondistended. No peritonitis. MUSCULOSKELETAL: No clubbing, cyanosis. No pre-tibial pitting edema. NEURO: No focal or lateralizing signs. Cranial nerves 2 through 12 grossly within normal limits. PSYCH: Appropriate affect. Alert and oriented to person, place and time. SKIN: Good skin turgor. Well perfused. ASSESSMENT: 1. Morbid obesity due to excess calories 2. Body mass index of 44.0, initial to 28.8 3. Osteoarthritis of the lower back. 4. Obstructive sleep apnea. 5. Hypertensive heart disease. 6. Dietary surveillance and counseling. 7. Gastroesophageal reflux disease 8. Hyperlipidemia 9. Vitamin D deficiency 10. Status post sleeve gastrectomy 11. Dietary surveillance and counseling PLAN: 1. Omeprazole prescription refilled 2. Recommend esophgram for evaluation of her sleeve gastrectomy 3. Recommend bariatric Labs
[2018-12-23 17:52] VITALS: BMI 28.8
[2018-12-31 15:30] VITALS: BP 145/98; PULSE 58; TEMP 97.7
== END ==
LOC: BARWHC3 15:52
PROVIDERS: ATTEND Surgery Plastic and Reconstructive Surgery
DX: Z48.815 Encounter for surgical aftercare following surgery on the digestive system (principal); E66.01 Morbid (severe) obesity due to excess calories; M47.816 Spondylosis without myelopathy or radiculopathy, lumbar region; G47.33 Obstructive sleep apnea (adult) (pediatric); I11.9 Hypertensive heart disease without heart failure; K21.9 Gastro-esophageal reflux disease without esophagitis; E78.5 Hyperlipidemia, unspecified; E55.9 Vitamin D deficiency, unspecified; Z98.84 Bariatric surgery status; Z68.28 Body mass index [BMI] 28.0-28.9, adult; Z71.3 Dietary counseling and surveillance; Z79.899 Other long term (current) drug therapy; Z88.0 Allergy status to penicillin; Z88.2 Allergy status to sulfonamides
CPT/HCPCS: 97803; 99211

== ENCOUNTER → 2019-01-01 | Outpatient (CLI) | payer BC ==
--- NOTE | 2019-01-01 12:07 | FL ---
EXAMINATION TYPE: FL barium swallow DATE OF EXAM: 01/01/2019 CLINICAL HISTORY: Pain, status post gastric. Nause and gurgling in stomach since gastric sleeve surgery on 06/01/18. Pt given 2oz EZ Paque. 1.19min fluoro time The patient ingested contrast without difficulty or delay. Noted are postsurgical changes of gastric sleeve. There is no evidence for leak or obstruction. Contrast is noted within the duodenum. IMPRESSION: Post-surgical change of gastric sleeve without evidence for obstruction or leak at this point in time.
== END | disposition home or self-care (01) ==
LOC: RADFLWHC 11:01
PROVIDERS: ATTEND Surgery Plastic and Reconstructive Surgery
DX: K21.9 Gastro-esophageal reflux disease without esophagitis (principal); Z98.84 Bariatric surgery status; Z88.0 Allergy status to penicillin; Z88.2 Allergy status to sulfonamides
CPT/HCPCS: 74220

== ENCOUNTER → 2019-01-06 | Outpatient (CLI) | payer BC ==
[2019-01-06 12:56] LABS: HCT 44.6 % (34.0-46.0); HGB 14.4 gm/dL (11.4-16.0); MCH 29.5 pg (25.0-35.0); MCHC 32.3 g/dL (31.0-37.0); MCV 91.4 fL (80.0-100.0); Mean Platelet Volume 7.6; Platelet Count 213 k/uL (150-450); RBC 4.88 m/uL (3.80-5.40); RDW 13.6 % (11.5-15.5); WBC 6.4 k/uL (3.8-10.6)
[2019-01-06 13:04] LABS: Partial Thromboplastin Time 24.7 sec (22.0-30.0); Prothrombin Time 10.8 sec (9.0-12.0)
[2019-01-06 19:06] LABS: Albumin 4.1 g/dL (3.80-4.90); Albumin/Globulin Ratio 2.16 (1.60-3.17); Anion Gap 7.4 mmol/L (4.00-12.00); Calcium 9.5 mg/dL (8.7-10.3); Carbon Dioxide 28.6 mmol/L (21.6-31.8); Globulin 1.9 g/dL (1.6-3.3); LDL Cholesterol,Calculated 105.6 mg/dL (0.0-131.0); Magnesium 1.9 mg/dL (1.5-2.4); Potassium 4.5 mmol/L (3.5-5.5); Total Bilirubin 0.8 mg/dL (0.3-1.2); VLDL Calculation 16.4 mg/dL (5.00-40.00)
[2019-01-06 19:10] LABS: Iron Saturation 31.06 (12.00-45.00)
[2019-01-06 19:17] LABS: Vitamin D 25 Hydroxy 24.9 ng/mL (30.0-100.0)
[2019-01-06 19:19] LABS: Folate, Serum 4.2 ng/mL
[2019-01-06 22:34] LABS: Hemoglobin A1C 4.8 % (4.0-6.0)
[2019-01-07 11:01] LABS: Zinc, Serum 70 ug/dL (60-130)
[2019-01-08 06:42] LABS: Vitamin A 29 ug/dL (38-106)
[2019-01-08 06:51] LABS: Vit B1(Thiamine) 45 ug/L (38-122)
== END ==
LOC: LABWHC1 12:32
PROVIDERS: ATTEND Surgery Plastic and Reconstructive Surgery
DX: E66.01 Morbid (severe) obesity due to excess calories (principal); E21.1 Secondary hyperparathyroidism, not elsewhere classified; D50.9 Iron deficiency anemia, unspecified; K90.9 Intestinal malabsorption, unspecified; E55.9 Vitamin D deficiency, unspecified; K74.1 Hepatic sclerosis; N19 Unspecified kidney failure; K50.90 Crohn's disease, unspecified, without complications
CPT/HCPCS: 36415; 80053; 80061; 82306; 82525; 82607; 82728; 82746; 83036; 83540; 83550; 83735; 83970; 84100; 84134; 84255; 84425; 84443; 84590; 84630; 85027; 85610; 85730

== ENCOUNTER 2019-05-04 15:11 | Emergency (ER) | payer BC ==
[2019-05-04 15:27] VITALS: TEMP 97.5
[2019-05-04] MEDS ORDERED: SODIUM CHLORIDE 0.9% 1,000 ML IV STA (16:12)
--- NOTE | 2019-05-04 16:16 | ED ---
Chest Pain HPI - General Chief Complaint: Recheck/Abnormal Lab/Rx Stated Complaint: back & rib pain Time Seen by Provider: 05/04/19 16:04 Source: patient, RN notes reviewed, old records reviewed Mode of arrival: ambulatory Limitations: no limitations - History of Present Illness Initial Comments: This is a 48-year-old female the ER for evaluation. Patient presented for left- sided rib pain. Patient has complex surgical history including gastric sleeve with recent 130 pound weight loss. No other trauma no travel history no fevers. No cough no congestion. No recent illness. Denies rash or lesions. She occasionally misses some fatigue and shortness of breath but nothing this is the exertional. Pain is worse when she palpates or so she has movement in that side but no other significant provocation factors. No recent fever cough or congestion MD Complaint: chest pain, other (Sided rib pain) -: week(s) Onset: during rest, during exertion Pain Location: left chest Pain Radiation: LUE Severity: severe Severity scale (1-10): 8 Quality: sharp Consistency: intermittent Improves With: nothing Worsens With: nothing Anginal Symptoms: dyspnea - Related Data Home Medications Medication Instructions Recorded Confirmed Bariatric Multivit 1 tab PO DAILY 04/29/19 05/04/19 Biotin 10,000 mcg PO DAILY 04/29/19 05/04/19 Vitamin A 8,000 unit PO DAILY 05/04/19 05/04/19 Allergies Allergy/AdvReac Type Severity Reaction Status Date / Time Sulfa (Sulfonamide Allergy Intermediate SULFA EYE Verified 05/04/19 15:45 Antibiotics) GTTS CAUSED SWELLING . Penicillins AdvReac Intermediate Nausea & Verified 05/04/19 15:45 Vomiting Review of Systems ROS Statement: Those systems with pertinent positive or pertinent negative responses have been documented in the HPI. ROS Other: All systems not noted in ROS Statement are negative. Past Medical History Past Medical History: Cancer, Hyperlipidemia, Hypertension Additional Past Medical History / Comment(s): hx migraines, swelling cindy lower legs, hx skin cancer, tx for H Pylori, NO B/P OR CHOLESTROL RX AT THIS TIME History of Any Multi-Drug Resistant Organisms: None Reported Past Surgical History: Bariatric Surgery, Section, Tonsillectomy, Uterine Ablation Additional Past Surgical History / Comment(s): SINUS balloon SURGERY, COLONOSCOPY, Surgery on Left eye to remove stye, .sleeve gastrectomy 06-01-18 (Dr. Shayy Wilson) Past Anesthesia/Blood Transfusion Reactions: Previous Problems w/ Anesthesia Additional Past Anesthesia/Blood Transfusion Reaction / Comment(s): Difficulty waking up following first C-SEC Past Psychological History: No Psychological Hx Reported Smoking Status: Never smoker - Past Family History Mother Family Medical History: Cancer Additional Family Medical History / Comment(s): at age 54 from lung cancer Father Family Medical History: Coronary Artery Disease (CAD), Memory Impairment Additional Family Medical History / Comment(s): at age 68 from Alzheimers Sister(s) Family Medical History: Cancer Additional Family Medical History / Comment(s): colon cancer (dx 2x) Brother(s) Family Medical History: Cancer Additional Family Medical History / Comment(s): at age 60 from colon c ancer General Exam - General Exam Comments Initial Comments: Patient does have left-sided tenderness to left rib cage, appears to be rib -4 through 6 spine anterior chest Limitations: no limitations General appearance: alert, in no apparent distress Head exam: Present: atraumatic, normocephalic, normal inspection Eye exam: Present: normal appearance, PERRL, EOMI. Absent: scleral icterus, conjunctival injection, periorbital swelling ENT exam: Present: normal exam, mucous membranes moist Neck exam: Present: normal inspection. Absent: tenderness, meningismus, lymphadenopathy Respiratory exam: Present: normal lung sounds bilaterally. Absent: respiratory distress, wheezes, rales, rhonchi, stridor Cardiovascular Exam: Present: regular rate, normal rhythm, normal heart sounds, other (Tenderness to left sided rib cage wrapped around anterior chest underneath left breast). Absent: systolic murmur, diastolic murmur, rubs, ga llop, clicks GI/Abdominal exam: Present: soft, normal bowel sounds. Absent: distended, tenderness, guarding, rebound, rigid Extremities exam: Present: normal inspection, full ROM, normal capillary refill. Absent: tenderness, pedal edema, joint swelling, calf tenderness Back exam: Present: normal inspection Neurological exam: Present: alert, oriented X3, CN II-XII intact Psychiatric exam: Present: normal affect, normal mood Skin exam: Present: warm, dry, intact, normal color. Absent: rash Course Vital Signs 05/04/19 05/04/19 05/04/19 15:22 17:24 19:00 Temperature 97.5 F L Pulse Rate 62 82 60 Respiratory 16 16 18 Rate Blood Pressure 140/91 139/84 151/85 O2 Sat by Pulse 100 96 98 Oximetry - Reevaluation(s) Reevaluation #1: 05/04/19 16:16 Medical records reviewed Reevaluation #2: 05/04/19 19:09 Patient's in no acute distress Chest Pain MDM - MDM 48 female the ER for evaluation, patient was essay for evaluation of left sided chest pain left rib pain. CT scans are negative for acute disease currently. Patient requiring any pain medication and patient can be discharged home Disposition Clinical Impression: Chest pain Disposition: HOME SELF-CARE Condition: Good Instructions (If sedation given, give patient instructions): Chest Pain (ED), Costochondritis (ED) Is patient prescribed a controlled substance at d/c from ED?: No Referrals: Evans Purvis MD [Primary Care Provider] - 1-2 days
[2019-05-04 16:35] LABS: Basophils % (A) 1 %; Eosinophils # (A) 0.1 k/uL (0-0.7); Eosinophils % (A) 2 %; HCT 47.1 % (34.0-46.0); HGB 15.9 gm/dL (11.4-16.0); Lymphocytes # (A) 2.3 k/uL (1.0-4.8); Lymphocytes % (A) 35 %; MCH 30.4 pg (25.0-35.0); MCHC 33.8 g/dL (31.0-37.0); MCV 89.8 fL (80.0-100.0); Mean Platelet Volume 6.9; Monocytes # (A) 0.4 k/uL (0-1.0); Monocytes % (A) 7 %; Neutrophils # (A) 3.4 k/uL (1.3-7.7); Neutrophils % (A) 53 %; Platelet Count 236 k/uL (150-450); RBC 5.25 m/uL (3.80-5.40); RDW 12.9 % (11.5-15.5); WBC 6.4 k/uL (3.8-10.6)
[2019-05-04 16:39] LABS: ALT 23 U/L (9-52); AST 21 U/L (14-36); African American GFR (CKD) >90 (>60 ml/min/1.73 sqM); Albumin 4.9 g/dL (3.5-5.0); Alkaline Phosphatase 43 U/L (38-126); Anion Gap 11 mmol/L; Blood Urea Nitrogen 16 mg/dL (7-17); Calcium 10.4 mg/dL (8.4-10.2); Carbon Dioxide 28 mmol/L (22-30); Chloride 100 mmol/L (98-107); Creatine Kinase 43 U/L (30-135); Glucose 96 mg/dL (74-99); Phosphorus 4.2 mg/dL (2.5-4.5); Potassium 4.2 mmol/L (3.5-5.1); Sodium 139 mmol/L (137-145); Total Bilirubin 1.5 mg/dL (0.2-1.3); Total Protein 7.6 g/dL (6.3-8.2)
[2019-05-04 16:43] LABS: D-Dimer <0.17 mg/L FEU (<0.60); INR 1.1 (<1.2); Partial Thromboplastin Time 26.7 sec (22.0-30.0); Prothrombin Time 11.6 sec (9.0-12.0)
--- NOTE | 2019-05-04 18:15 | CT ---
EXAMINATION TYPE: CT abdomen pelvis w con DATE OF EXAM: 05/04/2019 COMPARISON: None HISTORY: LUQ pain CT DLP: 648.1 mGycm Automated exposure control for dose reduction was used. TECHNIQUE: Helical acquisition of images was performed from the lung bases through the pelvis. CONTRAST: Performed without Oral Contrast and with IV Contrast, patient injected with 100 mL of Isovu e 370. FINDINGS: LUNG BASES: No acute findings. LIVER/GB: There is a 3 cm mean diameter ill-defined hypodense lesion in the upper anterior segment of the right hepatic lobe. Another 1.5 cm mean diameter similar peripheral liver lesion noted at caudal margin of the lower right hepatic lobe. Presumed to be incidental cavernous hemangiomas, nonemergent further characterization using liver protocol MRI without and with contrast is advised. The liver a nd biliary tree is otherwise unremarkable. PANCREAS: No significant abnormality is seen. SPLEEN: No significant abnormality is seen. No splenomegaly. ADRENALS: No significant abnormality is seen. KIDNEYS: No significant abnormality is seen. FREE AIR: No free air is visualized. RETROPERITONEAL ADENOPATHY: None visualized REPRODUCTIVE ORGANS: No significant abnormality is seen URINARY BLADDER: No significant abnormality is seen. PELVIC ADENOPATHY: None visualized. OSSEOUS STRUCTURES: No significant abnormality is seen. BOWEL: No significant abnormality is seen. Prominent volume of pancolonic stool noted. OTHER: No acute vascular findings. IMPRESSION: 1) NO ACUTE PROCESS. IN PARTICULAR, LUQ IS UNREMARKABLE. 2) INCIDENTAL 3 CM LIVER LESION, NONURGENT FOLLOW UP ADVISED.
--- NOTE | 2019-05-04 19:06 | CT ---
EXAMINATION TYPE: CT angio chest with contrast and with 3-D reconstruction renderings DATE OF EXAM: 05/04/2019 5:32 PM COMPARISON: None HISTORY: low left side chest pain CT DLP: 183.3 mGycm Automated exposure control for dose reduction was used. CONTRAST: CTA scan of the thorax is performed with IV Contrast, patient injected with 100 mL of Isovu e 370, pulmonary embolism protocol. Three-D reconstructions . FINDINGS: The airways are clear. The lungs are clear well-expanded bilaterally. The pleural spaces are negative. There is no cardiomegaly or pericardial effusion. No acute aortic findings. Pulmonary arterial tree i s well-opacified and negative for filling defects to suggest pulmonary emboli. No adenopathy. No acute skeletal findings. No incidental extra thoracic findings. IMPRESSION: NO ACUTE PROCESS.
[2019-05-04 19:43] VITALS: BP 129/87; PULSE 79; RESP 16
== END 2019-05-04 19:43 | disposition home or self-care (01) ==
LOC: EC 15:11
DX: R07.9 Chest pain, unspecified (principal); R06.00 Dyspnea, unspecified; R06.02 Shortness of breath; R07.81 Pleurodynia; Z88.0 Allergy status to penicillin; Z88.2 Allergy status to sulfonamides; Z85.828 Personal history of other malignant neoplasm of skin; Z98.84 Bariatric surgery status
CPT/HCPCS: 36415; 93005; 85379; 83880; 80053; 82550; 83735; 84100; 84484; 85025; 85610; 85730; 71275; 74177; 99284; 96360; Q9967

== ENCOUNTER 2019-05-05 09:10 | Day surgery (SDC) | payer BC ==
[2019-04-29 11:39] VITALS: BMI 25.6
--- NOTE | 2019-05-05 07:36 | P.GSHP ---
History of Present Illness H&P Date: 05/05/19 CHIEF COMPLAINT: Change in bowel habits HISTORY OF PRESENT ILLNESS: The patient is a 48-year-old female who presents for change in bowel habits. Lower endoscopy was offered for further evaluation and management. PAST MEDICAL HISTORY: Please see list. PAST SURGICAL HISTORY: Please see list. MEDICATIONS: Please see list. ALLERGIES: Please see list. SOCIAL HISTORY: No illicit drug use FAMILY HISTORY: No reports of Crohn disease or ulcerative colitis. REVIEW OF ORGAN SYSTEMS: CONSTITUTIONAL: No reports of fevers or chills. PHYSICAL EXAM: VITAL SIGNS: Stable GENERAL: Well-developed pleasant in no acute distress. HEENT: No scleral icterus. Extraocular movements grossly intact. Moist buccal mucosa. NECK: Supple without lymphadenopathy. CHEST: Unlabored respirations. Equal bilateral excursions. CARDIOVASCULAR: Regular rate and rhythm. Distal 2+ pulses. ABDOMEN: Soft, nontender, nondistended. MUSCULOSKELETAL: No clubbing, cyanosis, or edema. ASSESSMENT: 1. Change in bowel habits PLAN: 1. Recommend proceeding with a lower endoscopy Past Medical History Past Medical History: Cancer, Hyperlipidemia, Hypertension Additional Past Medical History / Comment(s): hx migraines, swelling cindy lower legs, hx skin cancer, tx for H Pylori, NO B/P OR CHOLESTROL RX AT THIS TIME History of Any Multi-Drug Resistant Organisms: None Reported Past Surgical History: Bariatric Surgery, Section, Tonsillectomy, Uterine Ablation Additional Past Surgical History / Comment(s): SINUS balloon SURGERY, COLONOSCOPY, Surgery on Left eye to remove stye, .sleeve gastrectomy 06-01-18 (Dr. Shayy Wilson) Past Anesthesia/Blood Transfusion Reactions: Previous Problems w/ Anesthesia Additional Past Anesthesia/Blood Transfusion Reaction / Comment(s): Difficulty waking up following first C-SEC Smoking Status: Never smoker - Past Family History Mother Family Medical History: Cancer Additional Family Medical History / Comment(s): at age 54 from lung cancer Father Family Medical History: Coronary Artery Disease (CAD), Memory Impairment Additional Family Medical History / Comment(s): at age 68 from Al zheimers Sister(s) Family Medical History: Cancer Additional Family Medical History / Comment(s): colon cancer (dx 2x) Brother(s) Family Medical History: Cancer Additional Family Medical History / Comment(s): at age 60 from colon cancer Medications and Allergies Home Medications Medication Instructions Recorded Confirmed Type Bariatric Multivit 1 tab PO DAILY 04/29/19 05/04/19 History Biotin 10,000 mcg PO DAILY 04/29/19 05/04/19 History Vitamin A 8,000 unit PO DAILY 05/04/19 05/04/19 History Allergies Allergy/AdvReac Type Severity Reaction Status Date / Time Sulfa (Sulfonamide Allergy Intermediate SULFA EYE Verified 05/04/19 15:45 Antibiotics) GTTS CAUSED SWELLING . Penicillins AdvReac Intermediate Nausea & Verified 05/04/19 15:45 Vomiting
[~2019-05-05 09:10] MED LIST changes: +LACTATED RINGERS 1,000 ML IV SCH; -SODIUM CHLORIDE 0.9% 1,000 ML IV ONE
[2019-05-05 09:57] VITALS: RESP 16; TEMP 98.4
[2019-05-05] MEDS ORDERED: LIDOCAINE 1% 20 ML VIAL (10MG/ML) FOR IV START INTRADERMA ONE (10:07)
[2019-05-05] MEDS ORDERED: PROPOFOL 10 MG/ML 20 ML VIAL IV ONE (10:48)
[2019-05-05] MEDS ORDERED: LIDOCAINE 1% INJ 10MG/ML (20 ML MDV) ONE (10:48)
--- NOTE | 2019-05-05 11:21 | P.PCN ---
Date of Procedure: 05/05/19 Description of Procedure: PREOPERATIVE DIAGNOSIS: Personal history of colon polyps Family history colon cancer, younger brother Family history colon cancer, parent Colonoscopy screening, high risk POSTOPERATIVE DIAGNOSIS: Personal history of colon polyps Family history colon cancer, younger brother Family history colon cancer, parent Colonoscopy screening, high risk Colon polyps, ascending colon 2 OPERATION: Colonoscopy to the ileocecal valve and appendiceal orifice. Colonoscopy with multiple cold forceps biopsies. SURGEON: Shayy Wilson MD. ANESTHESIA: MAC. INDICATIONS: The patient is a 48-year-old female who presents for colonoscopy screening. She has high familial risk of colon cancer and her parents and younger brother as well as personal history of colon polyps. Last colonoscopy 5 years ago. Benefits and risks were described and informed consent was obtained. DESCRIPTION OF PROCEDURE: The patient had undergone Suprep. She had been brought into the operating room and laid in the left lateral decubitus position. After adequate intravenous sedation, the rectum was examined with 2% lidocaine jelly. No external hemorrhoids were encountered. The rectal tone was within normal limits. No lesions were palpated in the rectal vault. An Olympus colonoscope was advanced until the ileocecal valve and appendiceal orifice were clearly viewed. The prep was excellent. The scope was removed with visualization of each mucosal fold. No scattered diverticulosis was encountered. Colonic polyps were found and cold forcep biopsy or snare polypectomy. No evidence of focal colitis was found. Retroflexion of the scope demonstrated no internal hemorrhoids. The colon was desufflated. The patient had tolerated the procedure well. Withdrawal time was over 6 minutes. FINDINGS: Aronchick preparation quality scale 1 (1-5) No internal hemorrhoids No external hemorrhoids No arteriovenous malformations No sigmoid diverticulosis Removal of 2 polyps: - Cold forceps biopsy at ascending colon,2 x 4 mm polyps. No focal colitis. RECOMMENDATIONS: Repeat colonoscopy in 5 years, 2023 Plan - Discharge Summary Discharge Rx Participant: No New Discharge Prescriptions: No Action Biotin 10,000 mcg PO DAILY Bariatric Multivit 1 tab PO DAILY Vitamin A 8,000 unit PO DAILY Discharge Medication List Bariatric Multivit 1 tab PO DAILY 04/29/19 [History] Biotin 10,000 mcg PO DAILY 04/29/19 [History] Vitamin A 8,000 unit PO DAILY 05/04/19 [History] Follow up Appointment(s)/Referral(s): Shayy Wilson MD [STAFF PHYSICIAN] - As Needed (Keep appt at bariatric center) Patient Instructions/Handouts: *Surgery [facility] - (Anesthesia) Endoscopy Discharge Instructions, Colonoscopy (DC), Colorectal Polyps (GEN) Activity/Diet/Wound Care/Special Instructions: Repeat colonoscopy in 5 years, 2023 Discharge Disposition: HOME SELF-CARE
[2019-05-05 11:37] VITALS: BP 109/70; PULSE 67
== END 2019-05-05 12:05 | disposition home or self-care (01) ==
LOC: ORWHC2ENDO 09:10
PROVIDERS: ATTEND Surgery Plastic and Reconstructive Surgery
DX: D12.2 Benign neoplasm of ascending colon (principal); Z80.0 Family history of malignant neoplasm of digestive organs; Z86.010 Personal history of colon polyps; I10 Essential (primary) hypertension; E78.5 Hyperlipidemia, unspecified; Z85.828 Personal history of other malignant neoplasm of skin; Z82.49 Family history of ischemic heart disease and other diseases of the circulatory system; Z88.0 Allergy status to penicillin; Z88.2 Allergy status to sulfonamides
CPT/HCPCS: 88305; 45380; J2001; J2704

== ENCOUNTER → 2019-06-09 | Outpatient (CLI) | payer BC ==
[2019-06-09 13:40] VITALS: BP 124/85; PULSE 66; TEMP 98; BMI 25.0
--- NOTE | 2019-06-09 13:52 | P.PN ---
Subjective Progress Note Date: 06/09/19 DATE OF SERVICE: 06/09/2019 CHEIF COMPLAINT: Status post sleeve gastrectomy HISTORY OF PRESENT ILLNESS: Ximena Lopes is a 48-year-old female status post sleeve gastectomy 06/01/18. She feels great! She is over 1 year out. She is fatigued all the time. She denies epigstric pain. She has more energy now than she had prior to surgery. She is status post sleeve . She reports trouble with her skin of her arm. She reports pulling sensation from her pannus. At her height of 5 foot 2.5 inches, her ideal body weight 135 pounds. Her initial weight was 244 pounds. Today she comes in 139 pounds from 160 pounds, 5 months ago. She has lost 21 pounds in 5 months. Her body mass index is reduced from 44.0 to 25.0. She has lost 105 pounds lifetime. Percent excess weight loss is 97 % lifetime. PAST MEDICAL HISTORY: 1. Morbid obesity. 2. Body mass index of 44.0, initial 3. Osteoarthritis of the lower back. 4. Obstructive sleep apnea, resolved 5. Hypertensive heart disease, resolved PAST SURGICAL HISTORY: 1. Arthroscopy. 2. Gastric bypass 3. Colonoscopy 4. Upper endoscopy HOME MEDICATIONS: Home Medications Medication Instructions Recorded Confirmed Bariatric Multivit 1 tab PO DAILY 04/29/19 06/09/19 Biotin 10,000 mcg PO DAILY 04/29/19 06/09/19 Vitamin A 8,000 unit PO DAILY 05/04/19 06/09/19 Previous Rx's Medication Instructions Recorded Nystatin 100,000 Unit/gm Powd 1 applic TOPICAL BID #60 powder 06/09/19 [Mycostatin Powder] ALLERGIES: Allergies Allergy/AdvReac Type Severity Reaction Status Date / Time Sulfa (Sulfonamide Allergy Intermediate SULFA EYE Verified 06/09/19 13:32 Antibiotics) GTTS CAUSED SWELLING . Penicillins AdvReac Intermediate Nausea & Verified 06/09/19 13:32 Vomiting SOCIAL HISTORY: No active tobacco use. FAMILY HISTORY: No family history of ulcerative colitis disease or Crohn's disease. Family history of morbid obesity. No lupus in the family. No reports of stomach or esophageal cancer. REVIEW OF ORGAN SYSTEMS: CONSTITUTIONAL: At her height of 5 foot 2.5 inches, her ideal body weight 135 pounds. Her initial weight was 244 pounds. Her body mass index reduced from 44.0. HEENT: Denies any active troubles with vision or hearing. No troubles with swallowing. ENDOCRINE: No diabetes. No hypothyroidism. CARDIOVASCULAR: No reports of palpitations or heart attacks or chest pain. RESPIRATORY: Has daytime somnolence resolved. No asthma. GI: Denies any bright red blood per rectum. No diarrhea or constipation. MUSCULOSKELETAL: Has lower back pain and joint pain improved. Has pain along the feet improved NEURO: No headaches. No seizure disorders. PSYCH: No depression or suicidal ideation. RHEUMATOLOGIC: No lupus. No rheumatoid arthritis. HEMATOLOGIC: Denies any abnormal bleeding or bruising. No personal history of DVTs. SKIN: No rash. No skin cancer. PHYSICAL EXAM: VITAL SIGNS: Height 5 foot 2.5 inches, weight 139 pounds. BMI 25.0. Vital Signs Temp 98.0 F 06/09/19 13:32 Pulse 66 06/09/19 13:32 Resp BP 124/85 06/09/19 13:32 Pulse Ox GENERAL: Well-developed in no acute distress. HEENT: No scleral icterus. Extraocular movements grossly intact. Hears conversational speech. No nasal drainage. NECK: Supple without lymphadenopathy. CHEST: Nonlabored respirations with equal bilateral excursions. CARDIOVASCULAR: Regular rate and regular rhythm. Distal 2+ pulses. ABDOMEN: Nontender. Soft, nondistended. No peritonitis. MUSCULOSKELETAL: No clubbing, cyanosis. No pre-tibial pitting edema. NEURO: No focal or lateralizing signs. Cranial nerves 2 through 12 grossly within normal limits. PSYCH: Appropriate affect. Alert and oriented to person, place and time. SKIN: Good skin turgor. Well perfused. LABS: Total protein was low, Pre-albumin is low, Vitamin A is low, Vitamin D is low, PTH is elevated. ASSESSMENT: 1. Morbid obesity due to excess calories 2. Body mass index of 44.0, initial to 25.0 3. Osteoarthritis of the lower back. 4. Obstructive sleep apnea. 5. Hypertensive heart disease. 6. Dietary surveillance and counseling. 7. Gastroesophageal reflux disease 8. Hyperlipidemia 9. Vitamin D deficiency 10. Status post sleeve gastrectomy 11. Dietary surveillance and counseling 12. Panniculitis. 13. Vitamin A is low 14. Secondary hyperparathyroidism 15. Inadequate protein intake PLAN: 1. Overall, she is doing well 2. Recommend bariatric labs 3. Nystatin for panniculitis prescribed 4. Correction of Vitamin A with supplement over 8000 units daily 5. Will need calcium intake over 1200 mg daily to address secondary hyperparathyroidism 6. Protein intake over 70 grams daily advised Objective - Vital Signs Vital signs: Vital Signs Temp 98.0 F 06/09/19 13:32 Pulse 66 06/09/19 13:32 Resp BP 124/85 06/09/19 13:32 Pulse Ox Intake & Output 06/08/19 06/09/19 06/09/19 18:59 06:59 18:59 Weight 63.049 kg
== END | disposition home or self-care (01) ==
LOC: BARWHC3 12:59
PROVIDERS: ATTEND Surgery Plastic and Reconstructive Surgery
DX: Z48.815 Encounter for surgical aftercare following surgery on the digestive system (principal); E66.01 Morbid (severe) obesity due to excess calories; M47.816 Spondylosis without myelopathy or radiculopathy, lumbar region; G47.33 Obstructive sleep apnea (adult) (pediatric); I11.9 Hypertensive heart disease without heart failure; K21.9 Gastro-esophageal reflux disease without esophagitis; E78.5 Hyperlipidemia, unspecified; E55.9 Vitamin D deficiency, unspecified; M79.3 Panniculitis, unspecified; E50.9 Vitamin A deficiency, unspecified; N25.81 Secondary hyperparathyroidism of renal origin; E46 Unspecified protein-calorie malnutrition; Z71.3 Dietary counseling and surveillance; Z68.25 Body mass index [BMI] 25.0-25.9, adult; Z98.84 Bariatric surgery status; Z88.0 Allergy status to penicillin; Z88.2 Allergy status to sulfonamides
CPT/HCPCS: 99211

== ENCOUNTER → 2019-07-16 | Outpatient (CLI) | payer BC ==
[2019-07-16 07:31] LABS: HCT 38.7 % (34.0-46.0); HGB 13.3 gm/dL (11.4-16.0); MCH 31.8 pg (25.0-35.0); MCHC 34.4 g/dL (31.0-37.0); MCV 92.3 fL (80.0-100.0); Mean Platelet Volume 6.6; Platelet Count 190 k/uL (150-450); RDW 12.8 % (11.5-15.5); WBC 3.4 k/uL (3.8-10.6)
[2019-07-16 07:45] LABS: Partial Thromboplastin Time 24.6 sec (22.0-30.0); Prothrombin Time 10.7 sec (9.0-12.0)
[2019-07-16 11:43] LABS: % Iron Saturation 48.22 (12.00-45.00); African American GFR (CKD) 117.9 (60.0-200.0); Albumin 4.2 g/dL (3.80-4.90); Albumin/Globulin Ratio 2.33 (1.60-3.17); Anion Gap 10.2 mmol/L (4.00-12.00); BUN/Creat Ratio 22.86 Ratio (12.00-20.00); Calcium 9.7 mg/dL (8.7-10.3); Carbon Dioxide 31.8 mmol/L (21.6-31.8); Chol/HDL Ratio 2.47; Globulin 1.8 g/dL (1.6-3.3); LDL Cholesterol,Calculated 99.8 mg/dL (0.0-131.0); Magnesium 1.9 mg/dL (1.5-2.4); Phosphorus 4.4 mg/dL (2.4-5.1); Potassium 4.5 mmol/L (3.5-5.5); Total Bilirubin 0.8 mg/dL (0.3-1.2); VLDL Calculation 10.2 mg/dL (5.00-40.00)
[2019-07-16 11:54] LABS: Folate, Serum 4.2 ng/mL
[2019-07-19 15:49] LABS: Zinc, Serum 66 ug/dL (60-130)
[2019-07-20 07:41] LABS: Vitamin A 33 ug/dL (38-106)
== END | disposition home or self-care (01) ==
LOC: LABWHC1 06:54
PROVIDERS: ATTEND Surgery Plastic and Reconstructive Surgery
DX: E21.1 Secondary hyperparathyroidism, not elsewhere classified (principal); D50.9 Iron deficiency anemia, unspecified; K90.9 Intestinal malabsorption, unspecified; E66.01 Morbid (severe) obesity due to excess calories; E44.0 Moderate protein-calorie malnutrition; E55.9 Vitamin D deficiency, unspecified; N19 Unspecified kidney failure; K74.1 Hepatic sclerosis; K50.90 Crohn's disease, unspecified, without complications
CPT/HCPCS: 36415; 80053; 80061; 82306; 82525; 82607; 82728; 82746; 83036; 83540; 83550; 83735; 83970; 84100; 84134; 84255; 84425; 84443; 84590; 84630; 85027; 85610; 85730

== ENCOUNTER → 2019-09-21 | Outpatient (CLI) | payer BC ==
--- NOTE | 2019-09-23 13:15 | MM ---
Reason for exam: screening (asymptomatic). Last mammogram was performed 1 year ago. History: Patient is postmenopausal and has history of other cancer at age 44. Family history of breast cancer in maternal aunt at age 50. Physical Findings: A clinical breast exam by your physician is recommended on an annual basis and results should be correlated with mammographic findings. MG 3D Screening Mammo W/Cad Bilateral CC and MLO view(s) were taken. Prior study comparison: September 09, 2018, bilateral MG 3d screening mammo w/cad. February 23, 2018, left breast MG 3d diag mammo w/cad LT. The breast tissue is heterogeneously dense. This may lower the sensitivity of mammography. Benign appearing bilateral calcifications. No suspicious abnormality. No significant changes when compared with prior studies. ASSESSMENT: Benign, BI-RAD 2 RECOMMENDATION: Routine screening mammogram of both breasts in 1 year.
== END | disposition home or self-care (01) ==
LOC: RADMAMWWP 08:02
PROVIDERS: ATTEND Obstetrics & Gynecology
DX: Z12.31 Encounter for screening mammogram for malignant neoplasm of breast (principal); Z80.3 Family history of malignant neoplasm of breast
CPT/HCPCS: 77063; 77067

== ENCOUNTER → 2020-02-21 | Outpatient (CLI) | payer BC ==
[2020-02-21 11:13] LABS: HCT 43.5 % (34.0-46.0); HGB 14.5 gm/dL (11.4-16.0); MCH 31.1 pg (25.0-35.0); MCHC 33.4 g/dL (31.0-37.0); Mean Platelet Volume 8.2; Platelet Count 194 k/uL (150-450); RBC 4.67 m/uL (3.80-5.40); RDW 12.8 % (11.5-15.5); WBC 3.7 k/uL (3.8-10.6)
[2020-02-21 11:14] LABS: Partial Thromboplastin Time 22.9 sec (22.0-30.0); Prothrombin Time 10.3 sec (9.0-12.0)
[2020-02-21 17:26] LABS: % Iron Saturation 39.48 (12.00-45.00); African American GFR (CKD) 123.2 (60.0-200.0); Albumin 4.3 g/dL (3.80-4.90); Albumin/Globulin Ratio 2.26 (1.60-3.17); Anion Gap 5.4 mmol/L (4.00-12.00); BUN/Creat Ratio 31.67 Ratio (12.00-20.00); Calcium 9.8 mg/dL (8.7-10.3); Carbon Dioxide 31.6 mmol/L (21.6-31.8); Chol/HDL Ratio 2.31; Globulin 1.9 g/dL (1.6-3.3); LDL Cholesterol,Calculated 91.6 mg/dL (0.0-131.0); Non-African American GFR(CKD) 106.3 (60.0-200.0); Phosphorus 3.5 mg/dL (2.4-5.1); Potassium 5.3 mmol/L (3.5-5.5); Total Bilirubin 0.8 mg/dL (0.3-1.2); Total Protein 6.2 g/dL (6.2-8.2); VLDL Calculation 13.4 mg/dL (5.00-40.00)
[2020-02-21 17:36] LABS: Folate, Serum 4.9 ng/mL
[2020-02-21 17:44] LABS: Ferritin 342.5 ng/mL (10.0-291.0)
[2020-02-23 07:31] LABS: Vitamin A 41 ug/dL (38-106)
[2020-02-23 08:44] LABS: Vit B1(Thiamine) 36 ug/L (38-122)
== END | disposition home or self-care (01) ==
LOC: LABWHC1 08:57
PROVIDERS: ATTEND Surgery Plastic and Reconstructive Surgery
DX: E21.1 Secondary hyperparathyroidism, not elsewhere classified (principal); D50.9 Iron deficiency anemia, unspecified; E89.1 Postprocedural hypoinsulinemia; K90.9 Intestinal malabsorption, unspecified; E55.9 Vitamin D deficiency, unspecified; K74.1 Hepatic sclerosis; E66.01 Morbid (severe) obesity due to excess calories; N19 Unspecified kidney failure; K50.90 Crohn's disease, unspecified, without complications
CPT/HCPCS: 36415; 80053; 80061; 82306; 82525; 82607; 82728; 82746; 83036; 83540; 83550; 83735; 83970; 84100; 84134; 84255; 84425; 84443; 84590; 84630; 85027; 85610; 85730

== ENCOUNTER → 2020-03-03 | Outpatient (CLI) | payer BC ==
[2020-03-03 09:18] VITALS: BP 128/82; PULSE 62; TEMP 98.2; BMI 22.1
--- NOTE | 2020-03-03 09:48 | P.PN ---
Subjective Progress Note Date: 03/03/20 DATE OF SERVICE: 03/03/2020 [facility] COMPLAINT: Status post sleeve gastrectomy HISTORY OF PRESENT ILLNESS: Ximena Lopes is a 49-year-old female status post sleeve gastectomy 06/01/18. She is almost 1.5 years out. She denies any abdominal pain. She reports hair loss including poor memory. She is not taking any multivitamins. She reports trouble with her skin. She has over 120 pound weight loss. Her BMI is less than 24. She is happy with her weight loss. She comes in with a new problem related to vitamin deficiency. At her height of 5 foot 2.5 inches, her ideal body weight 135 pounds. Her initial weight was 244 pounds. Today she comes in 123 pounds from 139 pounds, 9 months ago. She has lost 16 pounds in 9 months. Her body mass index is reduced from 44.0 to 22.1. She has lost 121 pounds lifetime. Percent excess weight loss is 111 % lifetime. PAST MEDICAL HISTORY: 1. Morbid obesity. 2. Body mass index of 44.0, initial 3. Osteoarthritis of the lower back. 4. Obstructive sleep apnea, resolved 5. Hypertensive heart disease, resolved PAST SURGICAL HISTORY: 1. Arthroscopy. 2. Gastric bypass 3. Colonoscopy 4. Upper endoscopy 5. Sleeve gastrectomy HOME MEDICATIONS: Home Medications Medication Instructions Recorded Confirmed Bariatric Multivit 1 tab PO DAILY 04/29/19 03/17/20 Biotin 10,000 mcg PO DAILY 04/29/19 03/17/20 Vitamin A 8,000 unit PO DAILY 05/04/19 03/17/20 Previous Rx's Medication Instructions Recorded Nystatin 100,000 Unit/gm Powd 1 applic TOPICAL BID #60 powder 06/09/19 [Mycostatin Powder] ALLERGIES: Allergies Allergy/AdvReac Type Severity Reaction Status Date / Time Sulfa (Sulfonamide Allergy Intermediate SULFA EYE Verified 06/09/19 13:32 Antibiotics) GTTS CAUSED SWELLING . Penicillins AdvReac Intermediate Nausea & Verified 06/09/19 13:32 Vomiting SOCIAL HISTORY: No active tobacco use. FAMILY HISTORY: No family history of ulcerative colitis disease or Crohn's disease. Family history of morbid obesity. No lupus in the family. No reports of stomach or esophageal cancer. REVIEW OF ORGAN SYSTEMS: CONSTITUTIONAL: At her height of 5 foot 2.5 inches, her ideal body weight 135 pounds. Her initial weight was 244 pounds. Her body mass index reduced from 44.0. HEENT: Denies any active troubles with vision or hearing. No troubles with swallowing. ENDOCRINE: No diabetes. No hypothyroidism. CARDIOVASCULAR: No reports of palpitations or heart attacks or chest pain. RESPIRATORY: Has daytime somnolence resolved. No asthma. GI: Denies any bright red blood per rectum. No diarrhea or constipation. MUSCULOSKELETAL: Has lower back pain and joint pain improved. Has pain along the feet improved NEURO: No headaches. No seizure disorders. PSYCH: No depression or suicidal ideation. RHEUMATOLOGIC: No lupus. No rheumatoid arthritis. HEMATOLOGIC: Denies any abnormal bleeding or bruising. No personal history of DVTs. SKIN: No rash. No skin cancer. PHYSICAL EXAM: VITAL SIGNS: Height 5 foot 2.5 inches, weight 123 pounds. BMI 22.1 Vital Signs Temp 98.2 F 03/03/20 09:13 Pulse 62 03/03/20 09:13 Resp BP 128/82 03/03/20 09:13 Pulse Ox GENERAL: Well-developed in no acute distress. HEENT: No scleral icterus. Extraocular movements grossly intact. Hears conversational speech. No nasal drainage. NECK: Supple without lymphadenopathy. CHEST: Nonlabored respirations with equal bilateral excursions. CARDIOVASCULAR: Regular rate and regular rhythm. Distal 2+ pulses. ABDOMEN: Nontender. Soft, nondistended. No peritonitis. MUSCULOSKELETAL: No clubbing, cyanosis. No pre-tibial pitting edema. NEURO: No focal or lateralizing signs. Cranial nerves 2 through 12 grossly within normal limits. PSYCH: Appropriate affect. Alert and oriented to person, place and time. SKIN: Good skin turgor. Well perfused. LABS: Reviewed. WBC is low 3.7. Pre-albumin is low. Vitamin B1 is low. ASSESSMENT: 1. Morbid obesity due to excess calories 2. Body mass index of 44.0, initial to 22.1 3. Osteoarthritis of the lower back. 4. Obstructive sleep apnea. 5. Hypertensive heart disease. 6. Dietary surveillance and counseling. 7. Gastroesophageal reflux disease 8. Hyperlipidemia 9. Vitamin D deficiency, resolved 10. Status post sleeve gastrectomy 11. Dietary surveillance and counseling 12. Panniculitis. 13. Vitamin A deficiency, resolved 14. Secondary hyperparathyroidism 15. Inadequate protein intake 16. Thiamine deficiency. PLAN: 1. Recommend thiamine infusion for symptomatic thiamine deficiency. 2. Also recommend multivitamins. Objective - Vital Signs Vital signs: Vital Signs Temp 98.2 F 03/03/20 09:13 Pulse 62 03/03/20 09:13 Resp BP 128/82 03/03/20 09:13 Pulse Ox Intake & Output 03/02/20 03/03/20 03/03/20 18:59 06:59 18:59 Weight 55.792 kg
== END | disposition home or self-care (01) ==
LOC: BARWHC3 08:54
PROVIDERS: ATTEND Surgery Plastic and Reconstructive Surgery
DX: E66.01 Morbid (severe) obesity due to excess calories (principal); G47.33 Obstructive sleep apnea (adult) (pediatric); M47.816 Spondylosis without myelopathy or radiculopathy, lumbar region; I11.9 Hypertensive heart disease without heart failure; Z71.3 Dietary counseling and surveillance; K21.9 Gastro-esophageal reflux disease without esophagitis; E78.5 Hyperlipidemia, unspecified; M79.3 Panniculitis, unspecified; N25.81 Secondary hyperparathyroidism of renal origin; E51.9 Thiamine deficiency, unspecified; Z68.22 Body mass index [BMI] 22.0-22.9, adult; Z98.84 Bariatric surgery status
CPT/HCPCS: 99211

== ENCOUNTER → 2020-12-21 | Outpatient (CLI) | payer BC ==
--- NOTE | 2020-12-25 09:57 | MM ---
Reason for exam: screening (asymptomatic). Last mammogram was performed 1 year and 3 months ago. History: Patient is postmenopausal and has history of other cancer at age 44. Family history of breast cancer in maternal aunt at age 50. Physical Findings: A clinical breast exam by your physician is recommended on an annual basis and results should be correlated with mammographic findings. MG 3D Screening Mammo W/Cad Bilateral CC and MLO view(s) were taken. Prior study comparison: September 21, 2019, bilateral MG 3d screening mammo w/cad. September 09, 2018, bilateral MG 3d screening mammo w/cad. The breast tissue is heterogeneously dense. This may lower the sensitivity of mammography. Superior left MLO grouped calcifications unchanged from 2019. No significant changes when compared with prior studies. ASSESSMENT: Negative, BI-RAD 1 RECOMMENDATION: Routine screening mammogram of both breasts in 1 year.
== END | disposition home or self-care (01) ==
LOC: RADMAMWWP 16:12
PROVIDERS: ATTEND Obstetrics & Gynecology
DX: Z12.31 Encounter for screening mammogram for malignant neoplasm of breast (principal); Z78.0 Asymptomatic menopausal state; Z80.3 Family history of malignant neoplasm of breast
CPT/HCPCS: 77063; 77067

== ENCOUNTER 2021-03-20 07:34 | Emergency (ER) | payer BC ==
[2021-03-20 07:39] VITALS: RESP 18; TEMP 98
--- NOTE | 2021-03-20 07:53 | ED ---
General Adult HPI - General Chief complaint: Chest Pain Stated complaint: Chest Pain Time Seen by Provider: 03/20/21 07:43 Source: patient, RN notes reviewed, old records reviewed Mode of arrival: wheelchair Limitations: no limitations - History of Present Illness Initial comments: 50-year-old female presenting with an episode of lower chest, substernal chest pain. This began about 20 minutes prior to arrival. His improving at the time my evaluation but not completely resolved. It was associated with dyspnea. Patient denies previous heart history. No history of DVT or PE. Denies recent travel. Denies lower extremity pain or swelling. Denies abdominal pain. No vomiting. Pain was the entire lower chest. No extremity or back pain. - Related Data Home Medications Medication Instructions Recorded Confirmed Biotin 10,000 mcg PO DAILY 04/29/19 03/20/21 Multivitamins, Thera [Multivitamin 1 tab PO DAILY 03/20/21 03/20/21 (formulary)] Allergies Allergy/AdvReac Type Severity Reaction Status Date / Time Sulfa (Sulfonamide Allergy Intermediate SULFA EYE Verified 03/20/21 08:35 Antibiotics) GTTS CAUSED SWELLING . Penicillins AdvReac Intermediate Nausea & Verified 03/20/21 08:35 Vomiting Review of Systems ROS Statement: Those systems with pertinent positive or pertinent negative responses have been documented in the HPI. ROS Other: All systems not noted in ROS Statement are negative. Past Medical History Past Medical History: Cancer, Hyperlipidemia, Hypertension Additional Past Medical History / Comment(s): hx migraines, swelling cindy lower legs, hx skin cancer, tx for H Pylori, NO B/P OR CHOLESTROL RX AT THIS TIME History of Any Multi-Drug Resistant Organisms: None Reported Past Surgical History: Bariatric Surgery, Section, Tonsillectomy, Uterine Ablation Additional Past Surgical History / Comment(s): SINUS balloon SURGERY, COLONOSCOPY, Surgery on Left eye to remove stye, .sleeve gastrectomy 06-01-18 (Dr. Shayy Wilson) Past Anesthesia/Blood Transfusion Reactions: Previous Problems w/ Anesthesia Additional Past Anesthesia/Blood Transfusion Reaction / Comment(s): Difficulty waking up following first C-SEC Past Psychological History: No Psychological Hx Reported Smoking Status: Current every day smoker Past Alcohol Use History: None Reported Past Drug Use History: Marijuana - Past Family History Mother Family Medical History: Cancer Additional Family Medical History / Comment(s): at age 54 from lung cancer Father Family Medical History: Coronary Artery Disease (CAD), Memory Impairment Additional Family Medical History / Comment(s): at age 68 from Alzheimers Sister(s) Family Medical History: Cancer Additional Family Medical History / Comment(s): colon cancer (dx 2x) Brother(s) Family Medical History: Cancer Additional Family Medical History / Comment(s): at age 60 from colon cancer General Exam Limitations: no limitations General appearance: alert, in no apparent distress Head exam: Present: atraumatic, normocephalic Eye exam: Present: normal appearance, PERRL ENT exam: Present: normal exam Neck exam: Present: normal inspection. Absent: tenderness, meningismus Respiratory exam: Present: normal lung sounds bilaterally. Absent: respiratory distress, wheezes, rales Cardiovascular Exam: Present: regular rate, normal rhythm GI/Abdominal exam: Present: soft. Absent: distended, tenderness, guarding Extremities exam: Present: normal inspection, normal capillary refill. Absent: pedal edema, calf tenderness Back exam: Present: normal inspection Neurological exam: Present: alert, oriented X3, CN II-XII intact. Absent: motor sensory deficit Psychiatric exam: Present: normal affect, normal mood Skin exam: Present: warm, dry, intact. Absent: cyanosis, diaphoretic Course Vital Signs 03/20/21 03/20/21 03/20/21 07:37 08:27 09:00 Temperature 98.0 F Pulse Rate 80 59 L 56 L Respiratory 18 18 18 Rate Blood Pressure 148/89 99/69 95/64 O2 Sat by Pulse 99 98 Oximetry 03/20/21 03/20/21 03/20/21 09:30 10:00 10:30 Temperature Pulse Rate 53 L 59 L 58 L Respiratory 18 18 18 Rate Blood Pressure 99/65 96/55 116/72 O2 Sat by Pulse 97 98 98 Oximetry EKG Findings - EKG Comments: EKG Findings:: EKG: Normal sinus rhythm, rate of 66, MO interval 156, QRS duration 82, QTC 417, no ST segment elevation Medical Decision Making - Medical Decision Making 50-year-old female presenting with chest pain which is bilateral. Episode was almost completely at the time my evaluation. She remains in the emergency department for several hours with no worsening pain. EKG is sinus rhythm without definitive signs of ischemia. Initial laboratory workup reveals a normal CBC, CMP showing a mild elevation in AST and ALT. Given this elevation ultrasound is performed which shows cholelithiasis with no secondary signs of cholecystitis, common bile duct 0.6 cm, gallbladder wall thickness is 0.2 cm these are normal. I did initially plan to observe this patient for serial cardiac enzymes, and general surgery consultation. However the patient has had previous pediatric surgery and wishes to follow up with her surgeon Dr. Wilson. She agrees to a 3 hour troponin which is performed in the emergency department and is again negative. Patient given strict return parameters and she will follow-up with her primary care physician and general surgeon. Dr. Wilson did call to check on patient and is okay with outpatient follow- up. Ultrasound did show liver lesion measuring 2.7 cm that will require outpatient follow-up. Patient informed of this. - Lab Data Result diagrams: 03/20/21 07:57 03/20/21 07:57 Lab Results 03/20/21 03/20/21 03/20/21 Range/Units 07:57 07:57 07:57 WBC 4.9 (3.8-10.6) k/uL RBC 4.59 (3.80-5.40) m/uL Hgb 14.3 (11.4-16.0) gm/dL Hct 41.2 (34.0-46.0) % MCV 89.8 (80.0-100.0) fL MCH 31.3 (25.0-35.0) pg MCHC 34.8 (31.0-37.0) g/dL RDW 12.3 (11.5-15.5) % Plt Count 178 (150-450) k/uL MPV 7.9 Neutrophils % 67 % Lymphocytes % 23 % Monocytes % 6 % Eosinophils % 2 % Basophils % 1 % Neutrophils # 3.3 (1.3-7.7) k/uL Lymphocytes # 1.1 (1.0-4.8) k/uL Monocytes # 0.3 (0-1.0) k/uL Eosinophils # 0.1 (0-0.7) k/uL Basophils # 0.0 (0-0.2) k/uL PT 10.3 (9.0-12.0) sec INR 1.0 (<1.2) APTT 23.1 (22.0-30.0) sec D-Dimer <0.17 (<0.60) mg/L FEU Sodium 141 (137-145) mmol/L Potassium 4.0 (3.5-5.1) mmol/L Chloride 105 (98-107) mmol/L Carbon Dioxide 31 H (22-30) mmol/L Anion Gap 5 mmol/L BUN 21 H (7-17) mg/dL Creatinine 0.57 (0.52-1.04) mg/dL Est GFR (CKD-EPI)AfAm >90 (>60 ml/min/1.73 sqM) Est GFR (CKD-EPI)NonAf >90 (>60 ml/min/1.73 sqM) Glucose 103 H (74-99) mg/dL Calcium 9.9 (8.4-10.2) mg/dL Magnesium 2.0 (1.6-2.3) mg/dL Total Bilirubin 0.8 (0.2-1.3) mg/dL AST 155 H (14-36) U/L ALT 75 H (4-34) U/L Alkaline Phosphatase 65 (38-126) U/L Troponin I (0.000-0.034) ng/mL Total Protein 6.5 (6.3-8.2) g/dL Albumin 4.2 (3.5-5.0) g/dL Lipase 102 (23-300) U/L 03/20/21 03/20/21 Range/Units 07:57 10:49 WBC (3.8-10.6) k/uL RBC (3.80-5.40) m/uL Hgb (11.4-16.0) gm/dL Hct (34.0-46.0) % MCV (80.0-100.0) fL MCH (25.0-35.0) pg MCHC (31.0-37.0) g/dL RDW (11.5-15.5) % Plt Count (150-450) k/uL MPV Neutrophils % % Lymphocytes % % Monocytes % % Eosinophils % % Basophils % % Neutrophils # (1.3-7.7) k/uL Lymphocytes # (1.0-4.8) k/uL Monocytes # (0-1.0) k/uL Eosinophils # (0-0.7) k/uL Basophils # (0-0.2) k/uL PT (9.0-12.0) sec INR (<1.2) APTT (22.0-30.0) sec D-Dimer (<0.60) mg/L FEU Sodium (137-145) mmol/L Potassium (3.5-5.1) mmol/L Chloride (98-107) mmol/L Carbon Dioxide (22-30) mmol/L Anion Gap mmol/L BUN (7-17) mg/dL Creatinine (0.52-1.04) mg/dL Est GFR (CKD-EPI)AfAm (>60 ml/min/1.73 sqM) Est GFR (CKD-EPI)NonAf (>60 ml/min/1.73 sqM) Glucose (74-99) mg/dL Calcium (8.4-10.2) mg/dL Magnesium (1.6-2.3) mg/dL Total Bilirubin (0.2-1.3) mg/dL AST (14-36) U/L ALT (4-34) U/L Alkaline Phosphatase (38-126) U/L Troponin I <0.012 <0.012 (0.000-0.034) ng/mL Total Protein (6.3-8.2) g/dL Albumin (3.5-5.0) g/dL Lipase (23-300) U/L Disposition Clinical Impression: Chest pain, Cholelithiasis Disposition: HOME SELF-CARE Condition: Good Instructions (If sedation given, give patient instructions): Chest Pain (ED), Gallstones (ED) Is patient prescribed a controlled substance at d/c from ED?: No Referrals: Evans Purvis MD [Primary Care Provider] - 1-2 days Shayy Wilson MD [Family Provider] - 1-2 days Time of Disposition: 11:10
[2021-03-20 08:23] LABS: Basophils % (A) 1 %; Eosinophils # (A) 0.1 k/uL (0-0.7); Eosinophils % (A) 2 %; HCT 41.2 % (34.0-46.0); HGB 14.3 gm/dL (11.4-16.0); Lymphocytes # (A) 1.1 k/uL (1.0-4.8); Lymphocytes % (A) 23 %; MCH 31.3 pg (25.0-35.0); MCHC 34.8 g/dL (31.0-37.0); MCV 89.8 fL (80.0-100.0); Mean Platelet Volume 7.9; Monocytes # (A) 0.3 k/uL (0-1.0); Monocytes % (A) 6 %; Neutrophils # (A) 3.3 k/uL (1.3-7.7); Neutrophils % (A) 67 %; Platelet Count 178 k/uL (150-450); RBC 4.59 m/uL (3.80-5.40); RDW 12.3 % (11.5-15.5); WBC 4.9 k/uL (3.8-10.6)
--- NOTE | 2021-03-20 08:25 | XR ---
EXAMINATION TYPE: XR chest 2V DATE OF EXAM: 03/20/2021 COMPARISON: NONE HISTORY: Chest pain TECHNIQUE: Frontal and lateral views of the chest are obtained. FINDINGS: Multiple overlying leads. Heart size is within normal limits. No focal consolidation, pneu mothorax or pleural effusion. Mild degenerative changes of the thoracic spine. IMPRESSION: 1. No acute pulmonary disease.
[2021-03-20 08:39] LABS: D-Dimer <0.17 mg/L FEU (<0.60); Partial Thromboplastin Time 23.1 sec (22.0-30.0); Prothrombin Time 10.3 sec (9.0-12.0)
[2021-03-20 08:44] LABS: ALT 75 U/L (4-34); AST 155 U/L (14-36); African American GFR (CKD) >90 (>60 ml/min/1.73 sqM); Albumin 4.2 g/dL (3.5-5.0); Alkaline Phosphatase 65 U/L (38-126); Anion Gap 5 mmol/L; Blood Urea Nitrogen 21 mg/dL (7-17); Calcium 9.9 mg/dL (8.4-10.2); Carbon Dioxide 31 mmol/L (22-30); Chloride 105 mmol/L (98-107); Glucose 103 mg/dL (74-99); Lipase 102 U/L (23-300); Non-African American GFR(CKD) >90 (>60 ml/min/1.73 sqM); Sodium 141 mmol/L (137-145); Total Bilirubin 0.8 mg/dL (0.2-1.3); Total Protein 6.5 g/dL (6.3-8.2)
--- NOTE | 2021-03-20 10:18 | US ---
EXAMINATION TYPE: US gallbladder DATE OF EXAM: 03/20/2021 COMPARISON: CT 05/04/2019 CLINICAL HISTORY: Pain in the right upper quadrant. EXAM MEASUREMENTS: Liver Length: 13.9cm Gallbladder Wall: 0.2 cm CBD: 0.6 cm Right Kidney: 12.2 x 3.8 x 4.3cm Pancreas: Obscured by bowel gas Liver: Hypoechoic structure at the anterior segment of the right lobe of the liver measuring 2.5 x 2. 3 x 2.7cm. This is indeterminate. A CT or MRI using liver protocol is recommended for further evalua tion. Neoplasm is not excluded. Gallbladder: cholelithiasis Evidence for sonographic Hensley's sign: no CBD: wnl Right Kidney: wnl IMPRESSION: 1. Cholelithiasis. No gallbladder wall thickening or pericholecystic fluid. Common duct is at the upp er limits of normal for patient's age. Negative Hensley's sign per histotechnologist supervisor. 2. There is a hypoechoic structure within the anterior segment of the right lobe of the liver measuri ng 2.7 cm. This is indeterminate. A CT or MRI using liver protocol is recommended for further evaluat ion. Neoplasm is not excluded. This was not performed although advise from prior CT 05/04/2019. 3. The pancreas is obscured due to overlying bowel gas.
[2021-03-20 10:59] VITALS: PULSE 58
[2021-03-20 11:55] VITALS: BP 110/70
== END 2021-03-20 11:54 | disposition home or self-care (01) ==
LOC: EC 07:34
DX: R07.2 Precordial pain (principal); K80.20 Calculus of gallbladder without cholecystitis without obstruction; I10 Essential (primary) hypertension; F17.200 Nicotine dependence, unspecified, uncomplicated; Z88.0 Allergy status to penicillin; Z88.2 Allergy status to sulfonamides
CPT/HCPCS: 36415; 71046; 76705; 80053; 83690; 83735; 84484; 85025; 85379; 85610; 85730; 93005; 99285

== ENCOUNTER → 2021-03-28 | Outpatient (CLI) | payer BC | END | disposition home or self-care (01) | DX: K80.80 Other cholelithiasis without obstruction (principal) ==

== ENCOUNTER 2021-04-15 21:33 | Observation (INO) | payer BC ==
[2021-04-15] MEDS ORDERED: HYDROmorphone 0.5 MG/0.5 ML SYRINGE IVP STA ×2 (21:56→23:03)
[2021-04-15] MEDS ORDERED: ONDANSETRON 4 MG/2 ML VIAL IVP STA (22:03)
[2021-04-15 22:17] LABS: Basophils % (A) 1 %; Eosinophils % (A) 0 %; HCT 44.6 % (34.0-46.0); Lymphocytes # (A) 1.1 k/uL (1.0-4.8); Lymphocytes % (A) 16 %; MCH 30.4 pg (25.0-35.0); MCHC 33.5 g/dL (31.0-37.0); MCV 90.6 fL (80.0-100.0); Mean Platelet Volume 8.2; Monocytes # (A) 0.7 k/uL (0-1.0); Monocytes % (A) 11 %; Neutrophils % (A) 72 %; Platelet Count 191 k/uL (150-450); RBC 4.92 m/uL (3.80-5.40); RDW 12.9 % (11.5-15.5)
[2021-04-15 22:48] LABS: ALT 595 U/L (4-34); African American GFR (CKD) >90 (>60 ml/min/1.73 sqM); Albumin 4.8 g/dL (3.5-5.0); Alkaline Phosphatase 109 U/L (38-126); Amylase 57 U/L (30-110); Anion Gap 10 mmol/L; Blood Urea Nitrogen 14 mg/dL (7-17); Calcium 10.4 mg/dL (8.4-10.2); Carbon Dioxide 25 mmol/L (22-30); Chloride 104 mmol/L (98-107); Glucose 133 mg/dL (74-99); Lipase 118 U/L (23-300); Non-African American GFR(CKD) >90 (>60 ml/min/1.73 sqM); Potassium 4.1 mmol/L (3.5-5.1); Sodium 139 mmol/L (137-145); Total Bilirubin 1.5 mg/dL (0.2-1.3)
[2021-04-15 23:34] LABS: AST 896 U/L (14-36)
[2021-04-15 23:49] LABS: Appearance,Urine Clear (Clear); Bilirubin,Urine Negative (Negative); Blood,Urine Negative (Negative); Color,Urine Yellow; Glucose,Urine (UA) Negative (Negative); Ketones,Urine 1+ (Negative); Leukocyte Esterase,Urine Negative (Negative); Nitrite,Urine Negative (Negative); PH, Urine 6.5 (5.0-8.0); Protein,Urine Trace (Negative); Specific Gravity,Urine 1.022 (1.001-1.035)
--- NOTE | 2021-04-16 01:29 | US ---
EXAMINATION TYPE: US abdomen limited DATE OF EXAM: 04/16/2021 COMPARISON: CLINICAL HISTORY: attention RUQ. RUQ pain, hx gallstones, patient states she is having GB removed in the morning. EXAM MEASUREMENTS: Liver Length: 17.9 cm Gallbladder Wall: 0.3 cm CBD: 0.4 cm Right Kidney: 11.6 x 4.4 x 4.1 cm Pancreas: head obscured by overlying bowel gas Liver: upper limits of normal in size. Previous seen liver lesions not visualized on today's exam b ut could be due to intercostal scanning because of bowel gas Gallbladder: mobile echogenic foci seen Evidence for sonographic Hensley's sign: neg CBD: wnl Right Kidney: No hydronephrosis or masses seen IMPRESSION: There are multiple small gallstones. No dilated ducts. No free fluid.
[2021-04-16] MEDS ORDERED: ONDANSETRON 4 MG/2 ML VIAL IVP PRN (02:09)
[2021-04-16] MEDS ORDERED: HYDROmorphone 1 MG/ML 1 ML SYRINGE IVP PRN (02:09)
[2021-04-16] MEDS ORDERED: HYDROmorphone 0.5 MG/0.5 ML SYRINGE IVP PRN (02:09)
[2021-04-16] MEDS ORDERED: NALOXONE 0.4 MG/ML 1 ML VIAL IV PRN (02:09)
[2021-04-16] MEDS: SODIUM CHLORIDE 0.9% 1,000 ML IV SCH ×2 (02:43→19:51)
--- NOTE | 2021-04-16 07:32 | ED ---
Abdominal Pain HPI - General Chief Complaint: Abdominal Pain Stated Complaint: Abd Pain Time Seen by Provider: 04/15/21 21:56 Source: patient Mode of arrival: ambulatory Limitations: no limitations - History of Present Illness Initial Comments: This patient is a 50-year-old woman who states that she has history of gallbladder problems. She presents with epigastric and right upper quadrant pain that started in the afternoon, and became worse in the evening. Patient states that it seemed to be worse after she ate a pretzel. Patient relates that she is scheduled to have gallbladder surgery with Dr. Khanna in the morning. The patient has also had a number of rounds of vomiting the pain developed. MD Complaint: abdominal pain -: hour(s) Location: RUQ Radiation: back Migration to: no migration Severity: severe Quality: cramping, aching Consistency: constant Improves With: nothing Worsens With: nothing Associated Symptoms: nausea, vomiting - Related Data Home Medications Medication Instructions Recorded Confirmed Multivit with Calcium,Iron,Min 1 tab PO DAILY 04/04/21 04/15/21 [Women's Multivitamin] Allergies Allergy/AdvReac Type Severity Reaction Status Date / Time Sulfa (Sulfonamide Allergy Intermediate SULFA EYE Verified 04/15/21 23:00 Antibiotics) GTTS CAUSED SWELLING . Penicillins AdvReac Intermediate Nausea & Verified 04/15/21 23:00 Vomiting Review of Systems ROS Statement: Those systems with pertinent positive or pertinent negative responses have been documented in the HPI. ROS Other: All systems not noted in ROS Statement are negative. Constitutional: Denies: fever, chills Respiratory: Denies: cough, dyspnea Cardiovascular: Denies: chest pain, palpitations Gastrointestinal: Reports: abdominal pain, nausea, vomiting. Denies: diarrhea, constipation, hematemesis, melena, hematochezia Genitourinary: Denies: dysuria, hematuria Musculoskeletal: Denies: back pain Skin: Denies: rash Neurological: Denies: headache, weakness, numbness Past Medical History Past Medical History: Cancer, Hyperlipidemia, Hypertension Additional Past Medical History / Comment(s): hx migraines, basal cell skin cancer, tx for H Pylori, HTN resolved with wt loss., Recent ER visit for gall stone pain. History of Any Multi-Drug Resistant Organisms: None Reported Past Surgical History: Bariatric Surgery, Section, Tonsillectomy, Uterine Ablation Additional Past Surgical History / Comment(s): SINUS BALLOON SURGERY, COLONOSCOPY, LEFT EYE STYE., SLEEVE GASTRECTOMY (06/01/18- DR LEBRON). Past Anesthesia/Blood Transfusion Reactions: Previous Problems w/ Anesthesia Additional Past Anesthesia/Blood Transfusion Reaction / Comment(s): Difficulty waking up Past Psychological History: Anxiety Smoking Status: Never smoker Past Alcohol Use History: None Reported Past Drug Use History: Marijuana - Past Family History Mother Family Medical History: Cancer Additional Family Medical History / Comment(s): at age 54 from lung cancer Father Family Medical History: Coronary Artery Disease (CAD), Memory Impairment Additional Family Medical History / Comment(s): at age 68 from Alzheimers Sister(s) Family Medical History: Cancer Additional Family Medical History / Comment(s): colon cancer (dx 2x) Brother(s) Family Medical History: Cancer Additional Family Medical History / Comment(s): at age 60 from colon cancer General Exam Limitations: no limitations General appearance: alert, in no apparent distress Head exam: Present: atraumatic, normocephalic Eye exam: Present: normal appearance. Absent: scleral icterus, conjunctival injection ENT exam: Present: normal oropharynx Neck exam: Present: normal inspection Respiratory exam: Present: normal lung sounds bilaterally. Absent: respiratory distress, wheezes, rales, rhonchi, stridor Cardiovascular Exam: Present: regular rate, normal rhythm, normal heart sounds. Absent: systolic murmur, diastolic murmur, rubs, gallop GI/Abdominal exam: Present: soft, tenderness, guarding. Absent: distended, rebound, rigid, mass, pulsatile mass, hernia Extremities exam: Present: normal inspection, normal capillary refill. Absent: pedal edema, calf tenderness Back exam: Present: normal inspection. Absent: CVA tenderness (R), CVA tenderness (L) Neurological exam: Present: alert Psychiatric exam: Present: normal affect Skin exam: Present: warm, dry, intact, normal color. Absent: rash Course Vital Signs 04/15/21 04/15/21 04/15/21 21:48 21:49 23:08 Temperature 98 F Pulse Rate 77 64 70 Respiratory 16 22 22 Rate Blood Pressure 144/76 136/81 137/78 O2 Sat by Pulse 66 L 98 98 Oximetry 04/15/21 04/16/21 23:29 00:49 Temperature 98.0 F Pulse Rate 73 78 Respiratory 20 20 Rate Blood Pressure 114/75 131/74 O2 Sat by Pulse 95 97 Oximetry Medical Decision Making - Lab Data Result diagrams: 04/15/21 22:09 04/15/21 22:09 Lab Results 04/15/21 04/15/21 04/15/21 Range/Units 22:09 22:09 22:09 WBC 7.0 (3.8-10.6) k/uL RBC 4.92 (3.80-5.40) m/uL Hgb 15.0 (11.4-16.0) gm/dL Hct 44.6 (34.0-46.0) % MCV 90.6 (80.0-100.0) fL MCH 30.4 (25.0-35.0) pg MCHC 33.5 (31.0-37.0) g/dL RDW 12.9 (11.5-15.5) % Plt Count 191 (150-450) k/uL MPV 8.2 Neutrophils % 72 % Lymphocytes % 16 % Monocytes % 11 % Eosinophils % 0 % Basophils % 1 % Neutrophils # 5.0 (1.3-7.7) k/uL Lymphocytes # 1.1 (1.0-4.8) k/uL Monocytes # 0.7 (0-1.0) k/uL Eosinophils # 0.0 (0-0.7) k/uL Basophils # 0.0 (0-0.2) k/uL Sodium 139 (137-145) mmol/L Potassium 4.1 (3.5-5.1) mmol/L Chloride 104 (98-107) mmol/L Carbon Dioxide 25 (22-30) mmol/L Anion Gap 10 mmol/L BUN 14 (7-17) mg/dL Creatinine 0.47 L (0.52-1.04) mg/dL Est GFR (CKD-EPI)AfAm >90 (>60 ml/min/1.73 sqM) Est GFR (CKD-EPI)NonAf >90 (>60 ml/min/1.73 sqM) Glucose 133 H (74-99) mg/dL Calcium 10.4 H (8.4-10.2) mg/dL Total Bilirubin 1.5 H (0.2-1.3) mg/dL AST 896 H (14-36) U/L ALT 595 H (4-34) U/L Alkaline Phosphatase 109 (38-126) U/L Total Protein 7.0 (6.3-8.2) g/dL Albumin 4.8 (3.5-5.0) g/dL Amylase 57 (30-110) U/L Lipase 118 (23-300) U/L Urine Color Yellow Urine Appearance Clear (Clear) Urine pH 6.5 (5.0-8.0) Ur Specific [place] 1.022 (1.001-1.035) Urine Protein Trace H (Negative) Urine Glucose (UA) Negative (Negative) Urine Ketones 1+ H (Negative) Urine Blood Negative (Negative) Urine Nitrite Negative (Negative) Urine Bilirubin Negative (Negative) Urine Urobilinogen 3.0 (<2.0) mg/dL Ur Leukocyte Esterase Negative (Negative) Disposition Clinical Impression: Biliary colic Disposition: ADMITTED IP TO THIS HOSP Condition: Fair
[2021-04-16] MEDS ORDERED: SODIUM CHLORIDE 0.9% 2,000 ML IV ONE (07:37)
[2021-04-16] MEDS ORDERED: HEPARIN SODIUM,PORCINE/PF 5,000 UNIT/0.5 ML SYRINGE SQ PRN (07:47)
[2021-04-16] MEDS ORDERED: SCOPOLAMINE 1.5MG/72HR PATCH TRANSDERM SCH (08:00)
--- NOTE | 2021-04-16 08:34 | P.GSHP ---
History of Present Illness H&P Date: 04/16/21 CHIEF COMPLAINT: Cholecystitis HISTORY OF PRESENT ILLNESS: The patient is a 50-year-old female who presented to the emergency room with moderate severe epigastric abdominal pain that started last night. Patient's reports that she ate scrambled eggs and pretzels. When her other night to severe epigastric right upper quadrant abdominal pain. She presented early this morning to the emergency room with severe abdominal pain. She has pre-existing history of symptomatic gallstones. She also presents with elevated liver enzymes. She is admitted for acute cholecystitis with elevated liver enzymes. PAST MEDICAL HISTORY: 1. Morbid obesity. 2. Body mass index of 44.0, initial 3. Osteoarthritis of the lower back. 4. Obstructive sleep apnea, resolved 5. Hypertensive heart disease, resolved PAST SURGICAL HISTORY: 1. Arthroscopy. 2. Gastric bypass 3. Colonoscopy 4. Upper endoscopy 5. Sleeve gastrectomy HOME MEDICATIONS: Reviewed ALLERGIES: Reviewed SOCIAL HISTORY: No active tobacco use. FAMILY HISTORY: No family history of ulcerative colitis disease or Crohn's disease. Family history of morbid obesity. No lupus in the family. No reports of stomach or esophageal cancer. REVIEW OF ORGAN SYSTEMS: CONSTITUTIONAL: At her height of 5 foot 2.5 inches, her ideal body weight 135 pounds. Her initial weight was 244 pounds. Her body mass index reduced from 44.0. HEENT: Denies any active troubles with vision or hearing. No troubles with swallowing. ENDOCRINE: No diabetes. No hypothyroidism. CARDIOVASCULAR: No reports of palpitations or heart attacks or chest pain. RESPIRATORY: Has daytime somnolence resolved. No asthma. GI: Denies any bright red blood per rectum. No diarrhea or constipation. MUSCULOSKELETAL: Has lower back pain and joint pain improved. Has pain along the feet improved NEURO: No headaches. No seizure disorders. PSYCH: No depression or suicidal ideation. RHEUMATOLOGIC: No lupus. No rheumatoid arthritis. HEMATOLOGIC: Denies any abnormal bleeding or bruising. No personal history of DVTs. SKIN: No rash. No skin cancer. PHYSICAL EXAM: VITAL SIGNS: Afebrile vital signs stable GENERAL: Well-developed pleasant in no acute distress. HEENT: No scleral icterus. Extraocular movements grossly intact. Moist buccal mucosa. NECK: Supple without lymphadenopathy. CHEST: Unlabored respirations. Equal bilateral excursions. CARDIOVASCULAR: Regular rate regular rhythm rhythm. Distal 2+ pulses. ABDOMEN: Soft, nondistended. Tender along the epigastrium and right upper quadrant. MUSCULOSKELETAL: No clubbing, cyanosis, or edema. NEURO: Cranial nerves II to XII within normal limits. No focal or lateralizing s igns. PSYCH: Alert and oriented to person, place and time. SKIN: Well-perfused good skin turgor. LABS: LFTs elevated over 800. Total bilirubin elevated at 1.0. STUDIES: Ultrasound the gallbladder independently reviewed demonstrating symptomatic, multiple gallstones. Features consistent with acute cholecystitis. This is my independent interpretation. ASSESSMENT: 1. Acute cholelithiasis with choledocholithiasis PLAN: 1. Will need a robotic cholecystectomy possible open. Benefits and risks were described. 2. Heparin for DVT prophylaxis 5000 units. 3. Antibiotic prophylaxis. Past Medical History Past Medical History: Cancer, Hyperlipidemia, Hypertension Additional Past Medical History / Comment(s): hx migraines, basal cell skin cancer, tx for H Pylori, HTN resolved with wt loss., Recent ER visit for gall stone pain. History of Any Multi-Drug Resistant Organisms: None Reported Past Surgical History: Bariatric Surgery, Section, Tonsillectomy, Uterine Ablation Additional Past Surgical History / Comment(s): SINUS BALLOON SURGERY, COLONOSCOPY, LEFT EYE STYE., SLEEVE GASTRECTOMY (06/01/18- DR LEBRON). Past Anesthesia/Blood Transfusion Reactions: Previous Problems w/ Anesthesia Additional Past Anesthesia/Blood Transfusion Reaction / Comment(s): Difficulty waking up Past Psychological History: Anxiety Smoking Status: Never smoker Past Alcohol Use History: None Reported Past Drug Use History: Marijuana - Past Family History Mother Family Medical History: Cancer Additional Family Medical History / Comment(s): at age 54 from lung cancer Father Family Medical History: Coronary Artery Disease (CAD), Memory Impairment Additional Family Medical History / Comment(s): at age 68 from Alzheimers Sister(s) Family Medical History: Cancer Additional Family Medical History / Comment(s): colon cancer (dx 2x) Brother(s) Family Medical History: Cancer Additional Family Medical History / Comment(s): at age 60 from colon cancer Medications and Allergies Home Medications Medication Instructions Recorded Confirmed Type Multivit with Calcium,Iron,Min 1 tab PO DAILY 04/04/21 04/16/21 History [Women's Multivitamin] Allergies Allergy/AdvReac Type Severity Reaction Status Date / Time Sulfa (Sulfonamide Allergy Intermediate SULFA EYE Verified 04/16/21 08:40 Antibiotics) GTTS CAUSED SWELLING . Penicillins AdvReac Intermediate Nausea & Verified 04/16/21 08:40 Vomiting Surgical - Exam Vital Signs Temp Pulse Resp BP Pulse Ox 98 F 77 16 144/76 66 L 04/15/21 21:48 04/15/21 21:48 04/15/21 21:48 04/15/21 21:48 04/15/21 21:48 Results - Labs 04/15/21 22:09 04/15/21 22:09 Abnormal Lab Results - Last 24 Hours (Table) 04/15/21 04/15/21 Range/Units 22:09 22:09 Creatinine 0.47 L (0.52-1.04) mg/dL Glucose 133 H (74-99) mg/dL Calcium 10.4 H (8.4-10.2) mg/dL Total Bilirubin 1.5 H (0.2-1.3) mg/dL AST 896 H (14-36) U/L ALT 595 H (4-34) U/L Urine Protein Trace H (Negative) Urine Ketones 1+ H (Negative) Diabetes panel 04/15/21 Range/Units 22:09 Sodium 139 (137-145) mmol/L Potassium 4.1 (3.5-5.1) mmol/L Chloride 104 (98-107) mmol/L Carbon Dioxide 25 (22-30) mmol/L BUN 14 (7-17) mg/dL Creatinine 0.47 L (0.52-1.04) mg/dL Glucose 133 H (74-99) mg/dL Calcium 10.4 H (8.4-10.2) mg/dL AST 896 H (14-36) U/L ALT 595 H (4-34) U/L Alkaline Phosphatase 109 (38-126) U/L Total Protein 7.0 (6.3-8.2) g/dL Albumin 4.8 (3.5-5.0) g/dL Calcium panel 04/15/21 Range/Units 22:09 Calcium 10.4 H (8.4-10.2) mg/dL Albumin 4.8 (3.5-5.0) g/dL Pituitary panel 04/15/21 Range/Units 22:09 Sodium 139 (137-145) mmol/L Potassium 4.1 (3.5-5.1) mmol/L Chloride 104 (98-107) mmol/L Carbon Dioxide 25 (22-30) mmol/L BUN 14 (7-17) mg/dL Creatinine 0.47 L (0.52-1.04) mg/dL Glucose 133 H (74-99) mg/dL Calcium 10.4 H (8.4-10.2) mg/dL Adrenal panel 04/15/21 Range/Units 22:09 Sodium 139 (137-145) mmol/L Potassium 4.1 (3.5-5.1) mmol/L Chloride 104 (98-107) mmol/L Carbon Dioxide 25 (22-30) mmol/L BUN 14 (7-17) mg/dL Creatinine 0.47 L (0.52-1.04) mg/dL Glucose 133 H (74-99) mg/dL Calcium 10.4 H (8.4-10.2) mg/dL Total Bilirubin 1.5 H (0.2-1.3) mg/dL AST 896 H (14-36) U/L ALT 595 H (4-34) U/L Alkaline Phosphatase 109 (38-126) U/L Total Protein 7.0 (6.3-8.2) g/dL Albumin 4.8 (3.5-5.0) g/dL
[2021-04-16] MEDS ORDERED: IV FLUID CONTINUATION 1,000 ML IV ONE ×2 (08:44→08:45)
[2021-04-16] MEDS ORDERED: ONDANSETRON 4 MG/2 ML VIAL IVP ONE (08:56)
[2021-04-16] MEDS ORDERED: DEXAMETHASONE SOD PHOSPHATE 4 MG/ML 1 ML VIAL IVP ONE (08:56)
[2021-04-16] MEDS ORDERED: LACTATED RINGERS 1,000 ML IV ONE (09:24)
[2021-04-16] MEDS ORDERED: MIDAZOLAM 2 MG/2 ML VIAL ONE (09:25)
[2021-04-16] MEDS ORDERED: HYDROmorphone (PF) 1 MG/ML ONE (09:25)
[2021-04-16] MEDS ORDERED: ROCURONIUM 10 MG/ML (5 ML VIAL) IV ONE (09:25)
[2021-04-16] MEDS ORDERED: PROPOFOL 10 MG/ML 20 ML VIAL IV ONE (09:25)
[2021-04-16] MEDS ORDERED: KETAMINE 10 MG/ML 20 ML VIAL ONE (09:25)
[2021-04-16] MEDS ORDERED: INDOCYANINE GREEN 25 MG VIAL IV ONE (09:25)
[2021-04-16] MEDS ORDERED: fentaNYL (PF) 50 MCG/ML 2 ML AMP ONE (09:25)
[2021-04-16] MEDS ORDERED: SUCCINYLCHOLINE CHLORIDE 100 MG/5 ML SYR IV ONE (09:25)
[2021-04-16] MEDS ORDERED: GLYCOPYRROLATE 0.2 MG/ML 2 ML VIAL ONE (09:25)
[2021-04-16] MEDS ORDERED: LIDOCAINE 1% INJ 10MG/ML (20 ML MDV) ONE (09:25)
[2021-04-16] MEDS ORDERED: NEOSTIGMINE 1 MG/ML 10 ML VIAL ONE (09:25)
[2021-04-16] MEDS ORDERED: SODIUM CHLORIDE 0.9% 100 ML with ceFAZolin 2,000 MG IV ONE ×2 (09:28)
[2021-04-16] MEDS ORDERED: LIDOCAINE 1%-EPI 1:100,000 20 ML VIAL SQ ONE ×2 (09:44→10:03)
[2021-04-16 11:09] VITALS: RESP 16
--- NOTE | 2021-04-16 11:10 | P.OP ---
Date of Procedure: 04/16/21 Description of Procedure: SURGEON: MILI LEBRON MD PREOPERATIVE DIAGNOSES: 1. Acute cholecystitis with cystic duct obstruction and choledocholithiasis 2. Elevated liver enzymes 3. Status post sleeve gastrectomy with massive weight loss POSTOPERATIVE DIAGNOSES: 1. Acute cholecystitis with cystic duct obstruction and choledocholithiasis 2. Elevated liver enzymes 3. Status post sleeve gastrectomy with massive weight loss 4. Hepatic adenoma, right anterior surface of liver OPERATION: Robotic-assisted da Radha Xi laparoscopic cholecystectomy, multiport with FIREFLY ESTIMATED BLOOD LOSS: 5 mL. SPECIMENS REMOVED: Gallbladder. COMPLICATIONS: None. OPERATIVE FINDINGS: 1. 2 cm superficial right lobe adenoma INDICATIONS: The patient is a 50-year-old female who presented acutely to emergency room with right upper quadrant and epigastric abdominal pain following a fatty meal. She presented with elevated liver enzymes including acute cholecystitis and choledocholithiasis. Robotic assisted laparoscopic approach was described. Benefits and risks of the procedure including but not limited to bleeding, infection, injury to the biliary tree was described. Informed consent was obtained. DESCRIPTION OF PROCEDURE: Patient was brought to the operating room, placed in supine position. After general induction, the abdomen had been prepped and draped in standard sterile fashion. The robotic da Radha XI system was primed. After a timeout protocol was performed, the patient had been prepped and draped in standard sterile fashion. The patient was injected with indocyanine green. A 5 mm 0 degrees laparoscopic trocar entry was performed along the left upper quadrant. The abdomen insufflated to 15 mmHg pressure which was tolerated well. Diagnostic laparoscopy demonstrated no injury to bowel viscera or mesentery. The liver surface was remarkable for 2 cm superficial adenoma along the right lobe of the liver. Prior incisions from her sleeve gastrectomy were used. Next, two 8 mm robotic ports were placed along the right upper abdomen. The camera 8-mm port was maintained along the epigastrium. Another 8 mm port was placed along the left upper abdominal wall after exchanging the 5 mm port. Please note that the ports were placed at least 10 to 15 cm away from the target anatomy of the gallbladder. The robot was docked along the left lateral abdomen. The patient was repositioned in reverse Trendelenburg position. Using a grasper for arm 3, a grasper for arm 4, including hook cautery for arm 1, the robotic system was docked and primed as described. Instruments were interchanged by the unit assistant including hook cautery, Bovie cautery and clip appliers. I had sat at the console. The gallbladder was scarred with peritoneal adhesions. Lysis of adhesions was performed to free the gallbladder from the surrounding tissues. Next attention was brought to the infundibulum and cystic structures. The infundibulum and cystic duct were dissected free from surrounding tissues. The cystic duct was isolated. FIREFLY was used to identify the cystic artery and cystic structures. A critical view of safety was obtained. Large PLASTIC clips were used throughout the entire case. Using a clip fun house attendant, 2 clips were placed at the junction of the infundibulum and cystic duct. The cystic duct was divided between clips. Next, the cystic artery was similarly clipped and cauterized. Electro-Bovie cautery was used to remove the gallbladder from the hepatic fossa. Hemostasis was checked and found to be adequate. The robot was undocked. I re-scrubbed into the case. Using a 10 mm Endo Catch bag via the left upper quadrant incision, the specimen was removed from the abdominal cavity. All pneumoperitoneum instruments were evacuated from the abdominal cavity. The incisions were reapproximated using 4-0 Monocryl in an interrupted subcuticular fashion. Fascial defects were less than 8 mm in size. Please note along the trocar sites, local anesthetic was placed as a field block prior to insertion of all instruments. Liquid glue was applied to the skin. At the end of the procedure needle, sponge, and instrument count had been verified correct by the surgical elastic knitter. The patient was transferred to postanesthesia care unit in stable condition. Intraoperative films were shared with the patient's family. Plan - Discharge Summary New Discharge Prescriptions: No Action Multivit with Calcium,Iron,Min [Women's Multivitamin] 1 tab PO DAILY Discharge Medication List Multivit with Calcium,Iron,Min [Women's Multivitamin] 1 tab PO DAILY 04/04/21 [ History] Follow up Appointment(s)/Referral(s): Evans Purvis MD [Primary Care Provider] - 1 Week
[2021-04-16] MEDS ORDERED: MEPERIDINE 50 MG/ML SYRINGE IVP ONE (11:16)
[2021-04-16] MEDS: KETOROLAC 15 MG/ML 1 ML VIAL IVP SCH ×3 (13:22→19:18)
[2021-04-16] MEDS: PANTOPRAZOLE 40 MG/10 ML VIAL IV SCH (13:40)
[2021-04-16] MEDS: DEXAMETHASONE SOD PHOSPHATE 4 MG/ML 1 ML VIAL IV SCH ×2 (13:41→19:48)
[2021-04-16 14:06] LABS: ALT 487 U/L (4-34); AST 412 U/L (14-36); African American GFR (CKD) >90 (>60 ml/min/1.73 sqM); Albumin 3.8 g/dL (3.5-5.0); Alkaline Phosphatase 68 U/L (38-126); Anion Gap 6 mmol/L; Blood Urea Nitrogen 10 mg/dL (7-17); Calcium 9.3 mg/dL (8.4-10.2); Carbon Dioxide 29 mmol/L (22-30); Chloride 106 mmol/L (98-107); Glucose 137 mg/dL (74-99); Non-African American GFR(CKD) >90 (>60 ml/min/1.73 sqM); Potassium 4.7 mmol/L (3.5-5.1); Sodium 141 mmol/L (137-145); Total Bilirubin 0.8 mg/dL (0.2-1.3); Total Protein 5.9 g/dL (6.3-8.2)
[2021-04-16] MEDS: metroNIDAZOLE-NS PMX 500 MG in SALINE 1 100ML.BAG IVPB SCH ×2 (15:51→23:42)
[2021-04-17 01:42] VITALS: PULSE 57
[2021-04-17] MEDS: KETOROLAC 15 MG/ML 1 ML VIAL IVP SCH ×2 (01:42→08:13)
[2021-04-17] MEDS: DEXAMETHASONE SOD PHOSPHATE 4 MG/ML 1 ML VIAL IV SCH ×2 (01:43→08:15)
[2021-04-17 08:08] LABS: Basophils % (A) 0 %; Eosinophils % (A) 0 %; HCT 39.6 % (34.0-46.0); HGB 13.2 gm/dL (11.4-16.0); Lymphocytes # (A) 0.5 k/uL (1.0-4.8); Lymphocytes % (A) 7 %; MCH 31.1 pg (25.0-35.0); MCHC 33.2 g/dL (31.0-37.0); MCV 93.6 fL (80.0-100.0); Monocytes # (A) 0.3 k/uL (0-1.0); Monocytes % (A) 4 %; Neutrophils # (A) 6.4 k/uL (1.3-7.7); Neutrophils % (A) 89 %; Platelet Count 179 k/uL (150-450); RBC 4.23 m/uL (3.80-5.40); RDW 12.6 % (11.5-15.5); WBC 7.2 k/uL (3.8-10.6)
[2021-04-17] MEDS: metroNIDAZOLE-NS PMX 500 MG in SALINE 1 100ML.BAG IVPB SCH (08:15)
[2021-04-17 08:24] LABS: ALT 315 U/L (4-34); AST 156 U/L (14-36); African American GFR (CKD) >90 (>60 ml/min/1.73 sqM); Albumin 3.6 g/dL (3.5-5.0); Alkaline Phosphatase 72 U/L (38-126); Anion Gap 5 mmol/L; Blood Urea Nitrogen 11 mg/dL (7-17); Calcium 9.5 mg/dL (8.4-10.2); Carbon Dioxide 28 mmol/L (22-30); Chloride 107 mmol/L (98-107); Glucose 121 mg/dL (74-99); Non-African American GFR(CKD) >90 (>60 ml/min/1.73 sqM); Potassium 3.9 mmol/L (3.5-5.1); Sodium 140 mmol/L (137-145); Total Bilirubin 0.8 mg/dL (0.2-1.3); Total Protein 5.7 g/dL (6.3-8.2)
[2021-04-17] MEDS ORDERED: ENOXAPARIN 30 MG/0.3 ML SYRINGE SQ SCH (09:00)
[2021-04-17] MEDS ORDERED: LEVOFLOXACIN 500MG-D5W PMX 500 MG in DEXTROSE/WATER 1 100ML.BAG IVPB SCH (09:00)
[2021-04-17 09:07] VITALS: BP 118/68; TEMP 98
[2021-04-17] MEDS: PANTOPRAZOLE 40 MG/10 ML VIAL IV SCH (09:17)
--- NOTE | 2021-04-19 20:19 | P.DS ---
Providers Date of admission: 04/16/21 02:15 Expected date of discharge: 04/17/21 Attending physician: Shayy Wilson Primary care physician: Jd Purvis Patient Condition at Discharge: Good Plan - Discharge Summary Discharge Rx Participant: No New Discharge Prescriptions: New Ibuprofen [Motrin] 600 mg PO Q8HR PRN #30 tab PRN Reason: Pain Continue Multivit with Calcium,Iron,Min [Women's Multivitamin] 1 tab PO DAILY Discharge Medication List Multivit with Calcium,Iron,Min [Women's Multivitamin] 1 tab PO DAILY 04/04/21 [History] Ibuprofen [Motrin] 600 mg PO Q8HR PRN #30 tab 04/17/21 [Rx] Follow up Appointment(s)/Referral(s): Evans Purvis MD [Primary Care Provider] - 1 Week [facility]ariat[facility] [place], [place] [NON-STAFF] - 04/20/21 9:00 am Patient Instructions/Handouts: Gallstones (DC), Laparoscopic Cholecystectomy (DC) Activity/Diet/Wound Care/Special Instructions: No lifting over 4 pounds in 4 weeks until May 14. You may shower with soap and water, no bath tub soaks for two weeks until Apr 30 or cleared by surgeon. Use ibuprofen scheduled for the next 24-48 hours for best pain relief. Use ice along incisions for the today to prevent swelling. Diet: low fat, high fiber and drink plenty of water. Discharge Disposition: HOME SELF-CARE
== END 2021-04-17 14:00 | disposition home or self-care (01) ==
LOC: EC 21:33 → 4SSUR 04-16 02:15 → 6PED 04-16 07:53
PROVIDERS: ADMIT Surgery Plastic and Reconstructive Surgery; ATTEND Surgery Plastic and Reconstructive Surgery
DX: K80.67 Calculus of gallbladder and bile duct with acute and chronic cholecystitis with obstruction (principal); D13.4 Benign neoplasm of liver; G43.909 Migraine, unspecified, not intractable, without status migrainosus; E78.5 Hyperlipidemia, unspecified; F41.9 Anxiety disorder, unspecified; M47.9 Spondylosis, unspecified; Z88.0 Allergy status to penicillin; Z88.2 Allergy status to sulfonamides; Z85.828 Personal history of other malignant neoplasm of skin; Z86.79 Personal history of other diseases of the circulatory system; Z98.84 Bariatric surgery status; Z86.39 Personal history of other endocrine, nutritional and metabolic disease; Z87.09 Personal history of other diseases of the respiratory system; Z98.891 History of uterine scar from previous surgery; Z98.890 Other specified postprocedural states; Z80.1 Family history of malignant neoplasm of trachea, bronchus and lung; Z82.0 Family history of epilepsy and other diseases of the nervous system; Z82.49 Family history of ischemic heart disease and other diseases of the circulatory system; Z80.0 Family history of malignant neoplasm of digestive organs; Z83.49 Family history of other endocrine, nutritional and metabolic diseases
CPT/HCPCS: 47562; S2900; 36415; 76705; 80053; 81003; 81025; 82150; 83690; 85025; 88304; 96374; 96375; 96376; 99285

== ENCOUNTER → 2021-05-15 | Outpatient (CLI) | payer BC ==
[2021-05-15 08:35] LABS: Partial Thromboplastin Time 23.4 sec (22.0-30.0); Prothrombin Time 10.9 sec (9.0-12.0)
[2021-05-15 10:46] LABS: HCT 43.5 % (37.2-46.3); MCH 29.7 pg (27.0-32.0); MCHC 32.2 g/dL (32.0-37.0); MCV 92.2 fL (80.0-97.0); Mean Platelet Volume 11.5 fL (9.5-12.2); Platelet Count 206 X 10*3/uL (140-440); RBC 4.72 X 10*6/uL (4.10-5.20); RDW 12.4 % (11.5-14.5); WBC 3.48 X 10*3/uL (4.50-10.00)
[2021-05-15 14:15] LABS: Hemoglobin A1C 4.8 % (4.0-6.0)
[2021-05-15 15:31] LABS: % Iron Saturation 38.6 (12.00-45.00); African American GFR (CKD) 116.3 (60.0-200.0); Albumin 4.7 g/dL (3.80-4.90); Albumin/Globulin Ratio 2.24 (1.60-3.17); Anion Gap 11.1 mmol/L (4.00-12.00); Calcium 10.2 mg/dL (8.7-10.3); Carbon Dioxide 27.9 mmol/L (21.6-31.8); Chol/HDL Ratio 2.11; Globulin 2.1 g/dL (1.6-3.3); LDL Cholesterol,Calculated 79.8 mg/dL (0.0-131.0); Non-African American GFR(CKD) 100.3 (60.0-200.0); Phosphorus 3.9 mg/dL (2.4-5.1); Potassium 3.9 mmol/L (3.5-5.5); Total Bilirubin 0.9 mg/dL (0.3-1.2); Total Protein 6.8 g/dL (6.2-8.2); VLDL Calculation 10.2 mg/dL (5.00-40.00)
[2021-05-15 16:09] LABS: Ferritin 375.6 ng/mL (10.0-291.0); Folate, Serum 10.1 ng/mL
[2021-05-16 14:30] LABS: Zinc, Serum 72 ug/dL (60-130)
[2021-05-17 06:11] LABS: Vitamin A 36 ug/dL (38-106)
[2021-05-17 07:30] LABS: Vit B1(Thiamine) 55 ug/L (38-122)
== END | disposition home or self-care (01) ==
LOC: LABWHC1 07:13
PROVIDERS: ATTEND Surgery Plastic and Reconstructive Surgery
DX: E66.01 Morbid (severe) obesity due to excess calories (principal); E89.1 Postprocedural hypoinsulinemia; D50.8 Other iron deficiency anemias; K90.89 Other intestinal malabsorption; E55.9 Vitamin D deficiency, unspecified; K74.1 Hepatic sclerosis; N19 Unspecified kidney failure; K50.90 Crohn's disease, unspecified, without complications
CPT/HCPCS: 36415; 80053; 80061; 82306; 82525; 82607; 82728; 82746; 83036; 83540; 83550; 83735; 83970; 84100; 84134; 84255; 84425; 84443; 84590; 84630; 85027; 85610; 85730

== ENCOUNTER → 2021-05-23 | Outpatient (CLI) | payer BC ==
[2021-05-23 14:53] VITALS: BP 147/88; PULSE 64; RESP 18; TEMP 97.8; BMI 23.2
--- NOTE | 2021-05-23 15:13 | P.BASOAP ---
Subjective Progress Note Date: 05/23/21 She reports occasional left upper back pain. She has vit A, D deficiency. Also feeling much better. Iron is normal. Ferritin level. Nystatin powder. She reports pulling along her pannus and pain. Recommend administrative support assistant assessment and chiropractor. Panniculectomy pictures. Objective - Vital Signs Vital signs: Vital Signs Temp 97.8 F 05/23/21 14:51 Pulse 64 05/23/21 14:51 Resp 18 05/23/21 14:51 BP 147/88 05/23/21 14:51 Pulse Ox Intake & Output 05/22/21 05/23/21 05/23/21 18:59 06:59 18:59 Weight 58.513 kg Assessment/Plan Plan: Date: 05/23/21 Initial Weight: 110.903 kg Initial BMI: 43.9 Current Weight: 58.513 kg Current BMI: 23.2 Type of Surgery: Total Volume in Band: Previous Volume: Volume Removed: Volume Added: Band Size:
== END | disposition home or self-care (01) ==
LOC: BARWHC3 14:39
PROVIDERS: ATTEND Surgery Plastic and Reconstructive Surgery
DX: E66.01 Morbid (severe) obesity due to excess calories (principal); Z68.23 Body mass index [BMI] 23.0-23.9, adult
CPT/HCPCS: 99211

== ENCOUNTER → 2021-05-24 | Outpatient (CLI) | payer BC ==
[~2021-05-24] MED LIST changes: +CYANOCOBALAMIN 1,000 MCG/ML 1 ML VIAL IM NR; -LACTATED RINGERS 1,000 ML IV SCH
[2021-05-24 11:54] VITALS: BP 129/86; PULSE 78; RESP 16; TEMP 97.8
== END | disposition home or self-care (01) ==
LOC: PROCWHC3 11:38
PROVIDERS: ATTEND Surgery Plastic and Reconstructive Surgery
DX: D51.9 Vitamin B12 deficiency anemia, unspecified (principal)
CPT/HCPCS: 96372; J3420

== ENCOUNTER → 2022-02-22 | Outpatient (CLI) | payer BC ==
--- NOTE | 2022-02-22 16:02 | FL ---
EXAMINATION TYPE: FL barium swallow DATE OF EXAM: 02/22/2022 COMPARISON: None HISTORY: Dysphagia history of gastric sleeve TECHNIQUE: Single contrast technique FINDINGS: Esophagus dilates to normal caliber and has normal contour to the gastroesophageal junction . Gastroesophageal junction opens to normal caliber. No intraluminal or extramural defects are eviden t. No hiatal hernia is evident. Small pulsion diverticulum appears to be within the distal esophagus . No secondary or tertiary contractions evident. There is complete stripping in the soft tissue both the horizontal drinking position. IMPRESSION: 1. Small pulsion diverticulum within the distal esophagus.
== END | disposition home or self-care (01) ==
LOC: RADUSWWP 12:57
PROVIDERS: ATTEND Surgery Plastic and Reconstructive Surgery
DX: R13.10 Dysphagia, unspecified (principal)
CPT/HCPCS: 74220

== ENCOUNTER → 2022-12-25 | Outpatient (CLI) | payer BC ==
--- NOTE | 2022-12-26 17:02 | MM ---
Reason for Exam: Screening (asymptomatic). Last screening mammogram was performed 12 month(s) ago. Patient History: Menarche at age 8. First Full-Term at age 22. Postmenopausal. Other cancer, age 44. Maternal aunt had breast cancer, age 50. Risk Values: Jazz 5 year model risk: 1.1%. NCI Lifetime model risk: 8.4%. Prior Study Comparison: 12/21/2020 Bilateral Screening Mammogram, [facility]. 12/24/2021 Bilateral Screening Mammogram, [facility]. 12/26/2021 Bilateral Diagnostic Mammogram, [facility]. Tissue Density: The breast tissue is heterogeneously dense. This may lower the sensitivity of mammography. Findings: Analyzed By CAD. Lateral microcalcifications remain unchanged. A few scattered small benign coil cyst calcifications are redemonstrated. There is no suspicious group of microcalcifications or new suspicious mass in either breast. Overall Assessment: Benign, BI-RAD 2 Management: Screening Mammogram of both breasts in 1 year. 1. Patient should continue monthly self breast exams. 2. A clinical breast exam by your physician is recommended on an annual basis. 3. This exam should not preclude additional follow-up of suspicious palpable abnormalities. Electronically signed and approved by: Margret Prakash M.D. Radiologist
== END | disposition home or self-care (01) ==
LOC: RADMAMWWP 07:02
PROVIDERS: ATTEND Obstetrics & Gynecology
DX: Z12.31 Encounter for screening mammogram for malignant neoplasm of breast (principal); Z78.0 Asymptomatic menopausal state; Z80.3 Family history of malignant neoplasm of breast
CPT/HCPCS: 77063; 77067

== ENCOUNTER → 2023-01-15 | Outpatient (CLI) | payer BC ==
[2023-01-15 17:30] VITALS: BP 150/89; PULSE 73; TEMP 97.9; BMI 22.8
--- NOTE | 2023-01-15 17:58 | P.BASOAP ---
Subjective Progress Note Date: 01/15/23 Has severe reflux for over 6 months. SHe has sleeve. Recommend EGD. Objective - Vital Signs Vital signs: Vital Signs Temp 97.9 F 01/15/23 17:27 Pulse 73 01/15/23 17:27 Resp BP 150/89 01/15/23 17:27 Pulse Ox FiO2 Intake & Output 01/14/23 01/15/23 01/15/23 18:59 06:59 18:59 Weight 56.699 kg Assessment/Plan Plan: Date: 01/15/23 Initial Weight: 110.903 kg Initial BMI: 44.7 Current Weight: 56.699 kg Current BMI: 22.8 Type of Surgery: Total Volume in Band: Previous Volume: Volume Removed: Volume Added: Band Size:
== END ==
LOC: BARWHC3 17:25
PROVIDERS: ATTEND Surgery Plastic and Reconstructive Surgery
DX: E66.01 Morbid (severe) obesity due to excess calories (principal); Z88.2 Allergy status to sulfonamides; Z88.0 Allergy status to penicillin
CPT/HCPCS: 99211

== ENCOUNTER → 2023-01-16 | Outpatient (CLI) | payer BC ==
[2023-01-16 09:38] LABS: Partial Thromboplastin Time 23.9 sec (22.0-30.0); Prothrombin Time 10.4 sec (9.0-12.0)
[2023-01-16 19:29] LABS: HCT 42.7 % (37.2-46.3); MCH 30.7 pg (27.0-32.0); MCHC 32.8 g/dL (32.0-37.0); MCV 93.6 fL (80.0-97.0); Mean Platelet Volume 10.8 fL (9.5-12.2); NRBC Per 100 WBC 0 /100 WBCS (0.0-0.0); Platelet Count 220 X 10*3/uL (140-440); RBC 4.56 X 10*6/uL (4.10-5.20); RDW 12.8 % (11.5-14.5); WBC 4.28 X 10*3/uL (4.50-10.00)
[2023-01-16 20:43] LABS: % Iron Saturation 27.43 (12.00-45.00); ALT 21 U/L (8-44); AST 19 U/L (13-35); African American GFR (CKD) 110.6 (60.0-200.0); Albumin 4.6 g/dL (3.8-4.9); Albumin/Globulin Ratio 2.64 (1.60-3.17); Alkaline Phosphatase 49 U/L (41-126); BUN/Creat Ratio 20.53 Ratio (12.00-20.00); Blood Urea Nitrogen 14.8 mg/dL (9.0-27.0); Carbon Dioxide 28.8 mmol/L (20.0-27.5); Chloride 104 mmol/L (96-109); Globulin 1.7 g/dL (1.6-3.3); Glucose 91 mg/dL (70-110); Iron 87 ug/dL (50-170); Non-African American GFR(CKD) 95.5 (60.0-200.0); Phosphorus 3.5 mg/dL (2.4-5.1); Potassium 4.7 mmol/L (3.5-5.5); Sodium 144 mmol/L (135-145); Total Iron Binding Capacity 316 ug/dL (228-460); Total Protein 6.3 g/dL (6.2-8.2)
[2023-01-16 20:58] LABS: Chol/HDL Ratio 2.14 Ratio; LDL Cholesterol,Calculated 100.5 mg/dL (0.0-131.0); Prealbumin 18.6 mg/dL (18.0-42.0); VLDL Calculation 11.96 mg/dL (5.00-40.00)
[2023-01-17 13:06] LABS: Zinc, Serum 72 ug/dL (60-130)
== END | disposition home or self-care (01) ==
LOC: LABWHC1 08:10
PROVIDERS: ATTEND Surgery Plastic and Reconstructive Surgery
DX: E66.01 Morbid (severe) obesity due to excess calories (principal); D50.8 Other iron deficiency anemias; E44.0 Moderate protein-calorie malnutrition; E44.1 Mild protein-calorie malnutrition; E45 Retarded development following protein-calorie malnutrition; E55.9 Vitamin D deficiency, unspecified; K74.1 Hepatic sclerosis; N19 Unspecified kidney failure; T56.894A Toxic effect of other metals, undetermined, initial encounter; K50.90 Crohn's disease, unspecified, without complications
CPT/HCPCS: 36415; 80053; 80061; 82306; 82525; 82607; 82728; 82746; 83036; 83540; 83550; 83735; 83970; 84100; 84134; 84255; 84425; 84443; 84590; 84630; 85027; 85610; 85730

== ENCOUNTER → 2023-03-03 | Day surgery (SDC) | payer BC ==
[2023-02-27 09:50] VITALS: BMI 23.3
[~2023-03-03] MED LIST changes: -CYANOCOBALAMIN 1,000 MCG/ML 1 ML VIAL IM NR; +LACTATED RINGERS 1,000 ML IV SCH; +LIDOCAINE 1% (10MG/ML) FOR IV START INTRADERMA ONE; +LIDOCAINE 2% INJ 20 MG/ML (2 ML VIAL) ONE; +PROPOFOL 10 MG/ML 20 ML VIAL IV ONE
[2023-03-03 06:50] VITALS: TEMP 98.7
--- NOTE | 2023-03-03 07:10 | P.GSHP ---
History of Present Illness H&P Date: 03/03/23 CHIEF COMPLAINT: GERD and colon screen HISTORY OF PRESENT ILLNESS: The patient is a 52-year-old female who presents with gastroesophageal reflux disease and need for colon screen. Upper and lower endoscopy were offered for further evaluation and management. PAST MEDICAL HISTORY: Please see list. PAST SURGICAL HISTORY: Please see list. MEDICATIONS: Please see list. ALLERGIES: Please see list. SOCIAL HISTORY: No illicit drug use FAMILY HISTORY: No reports of Crohn disease or ulcerative colitis. REVIEW OF ORGAN SYSTEMS: CONSTITUTIONAL: No reports of fevers or chills. GI: Denies any blood in stools or constipation. PHYSICAL EXAM: VITAL SIGNS: Stable GENERAL: Well-developed pleasant in no acute distress. HEENT: No scleral icterus. Extraocular movements grossly intact. Moist buccal mucosa. NECK: Supple without lymphadenopathy. CHEST: Unlabored respirations. Equal bilateral excursions. CARDIOVASCULAR: Regular rate and rhythm. Distal 2+ pulses. ABDOMEN: Soft, nondistended. MUSCULOSKELETAL: No clubbing, cyanosis, or edema. ASSESSMENT: 1. Gastroesophageal reflux disease 2. Colon screen. PLAN: 1. Recommend proceeding with an upper and lower endoscopy Past Medical History Past Medical History: Cancer, Hyperlipidemia, Hypertension Additional Past Medical History / Comment(s): hx migraines, basal cell skin cancer, tx for H Pylori, HTN resolved with wt loss., HAS BEEN HAVING ABD PAIN POSSIBLE HERNIA History of Any Multi-Drug Resistant Organisms: None Reported Past Surgical History: Bariatric Surgery, Section, Cholecystectomy, T onsillectomy, Uterine Ablation Additional Past Surgical History / Comment(s): SINUS BALLOON SURGERY, COLONOSCOPY, LEFT EYE STYE., SLEEVE GASTRECTOMY (06/01/18- DR LEBRON). lap choly 04-16-21 Past Anesthesia/Blood Transfusion Reactions: Previous Problems w/ Anesthesia Additional Past Anesthesia/Blood Transfusion Reaction / Comment(s): Difficulty waking up Smoking Status: Never smoker - Past Family History Mother Family Medical History: Cancer Additional Family Medical History / Comment(s): at age 54 from lung cancer Father Family Medical History: Coronary Artery Disease (CAD), Memory Impairment Additional Family Medical History / Comment(s): at age 68 from Alzheimers Sister(s) Family Medical History: Cancer Additional Family Medical History / Comment(s): colon cancer (dx 2x) Brother(s) Family Medical History: Cancer Additional Family Medical History / Comment(s): at age 60 from colon cancer Medications and Allergies Home Medications Medication Instructions Recorded Confirmed Type Multivit with Calcium,Iron,Min 1 tab PO DAILY 04/04/21 02/27/23 History [Women's Multivitamin] Allergies Allergy/AdvReac Type Severity Reaction Status Date / Time Sulfa (Sulfonamide Allergy Intermediate SULFA EYE Verified 03/03/23 06:27 Antibiotics) GTTS CAUSED SWELLING . Penicillins AdvReac Intermediate Nausea & Verified 03/03/23 06:27 Vomiting Surgical - Exam Vital Signs Temp Pulse Resp BP Pulse Ox 98.7 F 58 L 18 124/66 100 03/03/23 06:46 03/03/23 06:46 03/03/23 06:46 03/03/23 06:46 03/03/23 06:46
--- NOTE | 2023-03-03 07:17 | P.PCN ---
Date of Procedure: 03/03/23 Description of Procedure: PREOPERATIVE DIAGNOSIS: Gastroesophageal reflux disease. Status post sleeve gastrectomy. POSTOPERATIVE DIAGNOSIS: Gastroesophageal reflux disease. Chronic superficial gastritis. OPERATION: Esophagogastroduodenoscopy with cold forceps biopsies along the antrum and duodenum SURGEON: Shayy Wilson MD ANESTHESIA: MAC. INDICATIONS: The patient is a 52-year-old female who presents with a history of sleeve gastrectomy with gastroesophageal reflux disease. She is over 5 years out from her bariatric procedure. Benefits and risks of the procedure were described. Informed consent was obtained. DESCRIPTION: The patient was brought into the endoscopy suite and laid in the left lateral decubitus position. An Olympus gastroscope was passed along the posterior oropharynx down to the distal esophagus where the squamocolumnar junction was at 37 centimeters from the incisors remarkable for chronic erosive esophagitis, LA grade A without ulceration. The stomach was entered. The sleeve reservoir was within normal limits. Chronic gastritis albeit mild was found along the antrum with cold biopsies obtained. The first through third portion of the duodenum was biopsied. The stomach was desufflated. The patient tolerated the procedure well. FINDINGS: No acute ulceration found along her sleeve. No corkscrewing sleeve gastrectomy. Squamocolumnar junction at 37 cm from the incisors. Diaphragmatic hiatus at 37 cm. Gastric reservoir with prior history of sleeve gastrectomy within normal limits LA grade A erosive esophagitis. Biopsies of duodenum Chronic gastritis with biopsy RECOMMENDATIONS: Upper endoscopy as needed.
--- NOTE | 2023-03-03 07:28 | P.PCN ---
Date of Procedure: 03/03/23 Description of Procedure: PREOPERATIVE DIAGNOSIS: Colonoscopy screening. POSTOPERATIVE DIAGNOSIS: Colonoscopy screening. OPERATION: Colonoscopy to the cecum, ileocecal valve SURGEON: Shayy Wilson MD. ANESTHESIA: MAC. INDICATIONS: The patient is a 52-year-old female who presents for colonoscopy screening. Benefits and risks were described and informed consent was obtained. DESCRIPTION OF PROCEDURE: The patient had undergone Sutab prep. The patient had been brought into the operating room and laid in the left lateral decubitus position. After adequate intravenous sedation, the rectum was examined with 2% lidocaine jelly. No external hemorrhoids were encountered. The rectal tone was within normal limits. No lesions were palpated in the rectal vault. An Olympus colonoscope was advanced until the cecum, ileocecal valve and appendiceal orifice were clearly viewed. The prep was fair. No scattered diverticulosis was encountered. No colonic polyps were found. No evidence of focal colitis was found. Retroflexion of the scope demonstrated grade 1 internal hemorrhoids without active bleeding or inflammation. The colon was desufflated. The patient had tolerated the procedure well. Withdrawal time was over 6 minutes. FINDINGS: Aronchick preparation quality scale 3 (1-5); Limited view of mucosa Internal hemorrhoids, grade 1 No external prolapsed hemorrhoids. No arteriovenous malformations. No adenomatous polyps. No focal colitis. No sigmoid diverticulosis RECOMMENDATIONS: Lower endoscopy in 2027 due to suboptimal prep Plan - Discharge Summary Discharge Rx Participant: No New Discharge Prescriptions: Continue Multivit with Calcium,Iron,Min [Women's Multivitamin] 1 tab PO DAILY Discharge Medication List Multivit with Calcium,Iron,Min [Women's Multivitamin] 1 tab PO DAILY 04/04/21 [History] Follow up Appointment(s)/Referral(s): Shayy Wilson MD [STAFF PHYSICIAN] - As Needed Patient Instructions/Handouts: Gastritis (DC) Activity/Diet/Wound Care/Special Instructions: Repeat colonoscopy 2027 Discharge Disposition: HOME SELF-CARE
[2023-03-03 07:53] VITALS: BP 117/72; PULSE 55; RESP 16
== END | disposition home or self-care (01) ==
LOC: ORWHC2ENDO 06:03
PROVIDERS: ATTEND Surgery Plastic and Reconstructive Surgery
DX: Z12.11 Encounter for screening for malignant neoplasm of colon (principal); K29.50 Unspecified chronic gastritis without bleeding; K64.0 First degree hemorrhoids; K21.9 Gastro-esophageal reflux disease without esophagitis; I10 Essential (primary) hypertension; E78.5 Hyperlipidemia, unspecified; Z85.828 Personal history of other malignant neoplasm of skin; Z98.84 Bariatric surgery status; Z98.891 History of uterine scar from previous surgery; Z90.49 Acquired absence of other specified parts of digestive tract; Z90.89 Acquired absence of other organs; Z80.1 Family history of malignant neoplasm of trachea, bronchus and lung; Z82.49 Family history of ischemic heart disease and other diseases of the circulatory system; Z80.0 Family history of malignant neoplasm of digestive organs; Z88.2 Allergy status to sulfonamides; Z88.0 Allergy status to penicillin
CPT/HCPCS: 45378; 43239; J2704; J2001; 88305; 88342

== ENCOUNTER → 2023-03-12 | Outpatient (CLI) | payer BC ==
--- NOTE | 2023-03-12 16:55 | P.BASOAP ---
Subjective Progress Note Date: 03/12/23 She has H. pylori and has burning of the gut. Plan for antibiotics. She may benefit from hiatal hernia in the future. Barium swallow. Assessment/Plan Plan: Date: Initial Weight: 110.903 kg Initial BMI: Current Weight: Current BMI: Type of Surgery: Total Volume in Band: Previous Volume: Volume Removed: Volume Added: Band Size:
[2023-03-12 17:00] VITALS: BP 129/76; PULSE 71; TEMP 97.6; BMI 23.7
--- NOTE | 2023-03-26 15:04 | P.PN ---
Progress Note - Text Progress Note Date: 03/26/23 Has H.pylori. New prescriptions for flagyl and clarithromycin sent.
== END ==
LOC: BARWHC3 16:56
PROVIDERS: ATTEND Surgery Plastic and Reconstructive Surgery
DX: E66.01 Morbid (severe) obesity due to excess calories (principal); Z68.23 Body mass index [BMI] 23.0-23.9, adult; Z88.0 Allergy status to penicillin; Z88.2 Allergy status to sulfonamides
CPT/HCPCS: 99211

== ENCOUNTER → 2023-06-26 | Outpatient (CLI) | payer BC ==
[2023-06-26 08:37] LABS: Partial Thromboplastin Time 23.7 sec (22.0-30.0); Prothrombin Time 10.5 sec (9.0-12.0)
[2023-06-26 11:27] LABS: HCT 42.7 % (37.2-46.3); MCH 30.2 pg (27.0-32.0); MCHC 32.8 d/dL (32.0-37.0); MCV 92.2 FL (80.0-97.0); Mean Platelet Volume 10.6 FL (9.5-12.2); NRBC Per 100 WBC 0 X 10*3/uL (0.00-0.01); Platelet Count 196 X 10*3/uL (140-440); RBC 4.63 X 10*6/uL (4.10-5.20); RDW 12.6 % (11.5-14.5); WBC 2.72 X 10*3/uL (4.50-10.00)
[2023-06-26 11:59] LABS: % Iron Saturation 41.16 (12.00-45.00); ALT 21 U/L (8-44); AST 18 U/L (13-35); Albumin 4.4 d/dL (3.8-4.9); Albumin/Globulin Ratio 2.59 Ratio (1.60-3.17); Alkaline Phosphatase 52 U/L (41-126); BUN/Creat Ratio 22.43 Ratio (12.00-20.00); Blood Urea Nitrogen 15.7 mg/dL (9.0-27.0); Calcium 9.8 mg/dL (8.7-10.3); Chloride 105 mmol/L (96-109); Chol/HDL Ratio 2.06 Ratio; Globulin 1.7 d/dL (1.6-3.3); Glucose 98 mg/dL (70-110); Iron 128 UG/DL (50-170); LDL Cholesterol,Calculated 94.5 mg/dL (0.0-131.0); Magnesium 2.1 mg/dL (1.5-2.4); Phosphorus 3.6 mg/dL (2.4-5.1); Potassium 4.9 mmol/L (3.5-5.5); Sodium 144 mmol/L (135-145); Total Bilirubin 0.8 mg/dL (0.3-1.2); Total Iron Binding Capacity 311 UG/DL (228-460); Total Protein 6.1 d/dL (6.2-8.2); VLDL Calculation 8.38 mg/dL (5.00-40.00)
[2023-06-26 13:21] LABS: Prealbumin 16.9 mg/dL (18.0-42.0)
[2023-06-27 14:34] LABS: Zinc, Serum 89 ug/dL (60-130)
== END | disposition home or self-care (01) ==
LOC: LABWHC1 07:12
PROVIDERS: ATTEND Surgery Plastic and Reconstructive Surgery
DX: E66.01 Morbid (severe) obesity due to excess calories (principal); E89.1 Postprocedural hypoinsulinemia; D50.8 Other iron deficiency anemias; K91.2 Postsurgical malabsorption, not elsewhere classified; E44.0 Moderate protein-calorie malnutrition; E44.1 Mild protein-calorie malnutrition; E45 Retarded development following protein-calorie malnutrition; E46 Unspecified protein-calorie malnutrition; E55.9 Vitamin D deficiency, unspecified; K74.1 Hepatic sclerosis; N19 Unspecified kidney failure; T56.894A Toxic effect of other metals, undetermined, initial encounter; K50.90 Crohn's disease, unspecified, without complications
CPT/HCPCS: 36415; 80053; 80061; 82306; 82525; 82607; 82728; 82746; 83036; 83540; 83550; 83735; 83970; 84100; 84134; 84255; 84425; 84443; 84590; 84630; 85027; 85610; 85730

== ENCOUNTER → 2023-07-03 | Outpatient (CLI) | payer BC ==
[2023-07-03 11:57] VITALS: BP 126/85; PULSE 65; TEMP 98.4; BMI 23.9
== END ==
LOC: BARWHC3 11:28
PROVIDERS: ATTEND Surgery Plastic and Reconstructive Surgery
DX: F12.90 Cannabis use, unspecified, uncomplicated (principal); B96.1 Klebsiella pneumoniae [K. pneumoniae] as the cause of diseases classified elsewhere; Z88.2 Allergy status to sulfonamides; Z88.0 Allergy status to penicillin
CPT/HCPCS: 83013; 99211

== ENCOUNTER → 2023-07-09 | Outpatient (CLI) | payer BC ==
--- NOTE | 2023-07-09 17:59 | P.BASOAP ---
Subjective Progress Note Date: 07/09/23 She has h. pylori pain. 3 weeks advised. Vit A and Vit D advised. Assessment/Plan Plan: Date: Initial Weight: 110.903 kg Initial BMI: Current Weight: Current BMI: Type of Surgery: Total Volume in Band: Previous Volume: Volume Removed: Volume Added: Band Size:
[2023-07-11 12:49] VITALS: BP 128/85; PULSE 92; TEMP 98.2; BMI 23.9
== END ==
LOC: BARWHC3 16:38
PROVIDERS: ATTEND Surgery Plastic and Reconstructive Surgery
DX: Z53.9 Procedure and treatment not carried out, unspecified reason (principal)
CPT/HCPCS: 99211

== ENCOUNTER → 2023-07-14 | Outpatient (CLI) | payer BC ==
[~2023-07-14] MED LIST changes: +CYANOCOBALAMIN 1,000 MCG/ML 1 ML VIAL IM ONE; -LACTATED RINGERS 1,000 ML IV SCH; -LIDOCAINE 1% (10MG/ML) FOR IV START INTRADERMA ONE; -LIDOCAINE 2% INJ 20 MG/ML (2 ML VIAL) ONE; -PROPOFOL 10 MG/ML 20 ML VIAL IV ONE
[2023-07-14 13:01] VITALS: BP 133/85; PULSE 59; RESP 16; TEMP 97.6
== END ==
LOC: PROCWHC3 12:25
PROVIDERS: ATTEND Surgery Plastic and Reconstructive Surgery
DX: D51.9 Vitamin B12 deficiency anemia, unspecified (principal)
CPT/HCPCS: 96372; J3420

== ENCOUNTER → 2023-07-31 | Outpatient (CLI) | payer BC ==
--- NOTE | 2023-07-31 12:11 | FL ---
EXAMINATION TYPE: FL barium swallow DATE OF EXAM: 07/31/2023 12:03 PM COMPARISON: Chest radiograph from 05/04/2019, fluoroscopy 01/01/2019 CLINICAL INDICATION:Female, 52 years old with history of R13.10 dysphagia, R10.13 epigastric pain; TECHNIQUE: The procedure was explained and patient history elicited. All patient questions were ans wered prior to start of procedure. Multiple spot fluoroscopic images of the esophagus were obtained a fter the oral ingestion of effervescent crystals and liquid barium as the contrast agent. Fluoroscopic time: 26 seconds Fluoroscopic images: None Radiographs taken: 94 DAP: 545 [id number] FINDINGS: The esophagus demonstrates normal primary and secondary peristalsis. The esophageal mucosa is smooth without evidence of focal stricture, ulceration, or abnormal outpouching. No gastroesophageal reflu x disease was identified IMPRESSION: No evidence for gastroesophageal reflux or hernia. No abnormality to plane the patient's symptoms.
== END | disposition home or self-care (01) ==
LOC: RADUSWWP 10:59
PROVIDERS: ATTEND Surgery Plastic and Reconstructive Surgery
DX: R13.10 Dysphagia, unspecified (principal); R10.13 Epigastric pain
CPT/HCPCS: 74220

== ENCOUNTER → 2023-12-29 | Outpatient (CLI) | payer BC ==
--- NOTE | 2023-12-29 12:49 | MM ---
Reason for Exam: Screening (asymptomatic). Last screening mammogram was performed 12 month(s) ago. Patient History: Menarche at age 8. First Full-Term at age 22. Postmenopausal. Other cancer, age 44. Maternal aunt had breast cancer, age 50. Risk Values: Jazz 5 year model risk: 1.1%. NCI Lifetime model risk: 8.2%. Prior Study Comparison: 12/24/2021 Bilateral Screening Mammogram, [facility]. 12/26/2021 Bilateral Diagnostic Mammogram, [facility]. 12/25/2022 Bilateral MG 3D screening mammo w/cad, [facility]. Tissue Density: The breasts are heterogeneously dense, which may obscure small masses. Findings: Analyzed By CAD. There is no suspicious group of microcalcifications or new suspicious mass in either breast. Benign-appearing calcifications. Stable asymmetric density along the inner margin of the right breast. Benign-appearing calcifications. Overall Assessment: Benign, BI-RAD 2 Management: Screening Mammogram of both breasts in 1 year. . Patient should continue monthly self-breast exams. A clinical breast exam by your physician is recommended on an annual basis. This exam should not preclude additional follow-up of suspicious palpable abnormalities. Note on Jazz scores and lifetime risk: 1. A Jazz score greater than 3% is considered moderate risk. If this is the case, consider specialist referral to assess eligibility for a risk reducing agent. 2. If overall lifetime risk for the development of breast cancer is 20% or higher, the patient may qualify for future screening with alternating mammogram and breast MRI. Electronically signed and approved by: Jordy Locke M.D. Radiologis
== END | disposition home or self-care (01) ==
LOC: RADMAMWWP 07:00
PROVIDERS: ATTEND Obstetrics & Gynecology
DX: Z12.31 Encounter for screening mammogram for malignant neoplasm of breast (principal); Z78.0 Asymptomatic menopausal state; Z80.3 Family history of malignant neoplasm of breast
CPT/HCPCS: 77063; 77067

== ENCOUNTER → 2025-02-04 | Outpatient (CLI) | payer BC ==
--- NOTE | 2025-02-07 07:34 | MM ---
Reason for Exam: Screening (asymptomatic). Last mammogram was performed 1 year(s) and 1 month(s) ago. Patient History: Menarche at age 8. First Full-Term at age 22. Postmenopausal. Other cancer, age 44. Currently using Estrogen and Progesterone, for 1 year. Maternal aunt had breast cancer, age 50. Risk Values: Jazz 5 year model risk: 1.2%. NCI Lifetime model risk: 8.1%. Prior Study Comparison: 12/26/2021 Bilateral Diagnostic Mammogram, [facility]. 12/25/2022 Bilateral MG 3D screening mammo w/cad, [facility]. 12/29/2023 Bilateral MG 3D screening mammo w/cad, [facility]. Tissue Density: The breasts are heterogeneously dense, which may obscure small masses. Findings: Analyzed By CAD. Right breast: There is no suspicious group of microcalcifications or new suspicious mass. Left breast: There is no suspicious group of microcalcifications or new suspicious mass. Overall Assessment: Negative, BI-RAD 1 Management: Screening Mammogram of both breasts in [address] [facility] will attempt to contact patient to return for supplemental views and ultrasound if indicated. Patient should continue monthly self-breast exams. A clinical breast exam by your physician is recommended on an annual basis. This exam should not preclude additional follow-up of suspicious palpable abnormalities. Note on Jazz scores and lifetime risk: 1. A Jazz score greater than 3% is considered moderate risk. If this is the case, consider specialist referral to assess eligibility for a risk reducing agent. 2. If overall lifetime risk for the development of breast cancer is 20% or higher, the patient may qualify for future screening with alternating mammogram and breast MRI. [facility], , 02/07/2025 7:31 AM. Electronically signed and approved by: Clay Lewis DO
== END | disposition home or self-care (01) ==
LOC: RADMAMWWP 16:02
PROVIDERS: ATTEND Obstetrics & Gynecology
DX: Z12.31 Encounter for screening mammogram for malignant neoplasm of breast (principal); R92.333 Mammographic heterogeneous density, bilateral breasts; Z78.0 Asymptomatic menopausal state; Z80.3 Family history of malignant neoplasm of breast
CPT/HCPCS: 77063; 77067